=== PATIENT | female | born 2000 | race Caucasian/White ===

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

== ENCOUNTER → 2022-08-10 | Outpatient (CLI) | payer MEDICAID, SELFPAY ==
[2022-08-10 13:18] LABS: Chlamydia Trachomatis by PCR Negative (Negative); Neisserai gonorrhoeae by PCR Negative (Negative); Probe Check PASS; Sample Adequacy Control PASS; Specimen Processing Control PASS
== END | disposition home or self-care (01) ==
PROVIDERS: PCP Pediatrics; Referring Provider Nurse Practitioner Women's Health; Visit Provider Nurse Practitioner Women's Health
DX: Z11.3 Encounter for screening for infections with a predominantly sexual mode of transmission (principal)
CPT/HCPCS: 87491; 87591

== ENCOUNTER 2022-09-16 09:40 | Emergency (ER) | payer MEDICAID, SELFPAY ==
[2022-09-16 09:40] VITALS: BP 106/66; PULSE 70; RESP 18; TEMP 36.9; O2SAT 99; BMI 23.9
--- NOTE | 2022-09-16 10:42 | CT_ITS ---
INDICATION: Pain EXAMINATION: CT BRAIN - CT Head or Brain W/O Contrast Injection TECHNIQUE: Multiple axial images were obtained of the head without intravenous contrast. A radiation dose optimization technique was used for this scan. IV Contrast dosage and agent: None. COMPARISON: None FINDINGS: No acute intracranial hemorrhage. No significant midline shift. Ventricles are normal size and configuration for patient''s age. Mao-white matter differentiation is maintained. No acute infarct. No significant cerebral edema. No parenchymal masses. No acute calvarial fracture. Soft tissues are unremarkable. Fluid and mucosal thickening predominantly in the left ethmoid, paranasal, sphenoid, and left maxillary sinus. Mastoid air cells are clear. Orbits and globes are unremarkable. CT/Brain/Head without Contrast IMPRESSION: 1. No acute intracranial findings. 2. Acute sinusitis. Electronically Signed: Prince Wren, at 11:38 EST ,
[2022-09-16] MEDS: Metoclopramide 10 MG/2 ML Vial IV (10:51)
[2022-09-16] MEDS: 0.9% Normal Saline 1,000 ML 999 ML IV (10:51)
[2022-09-16] MEDS: DiphenhydrAMINE 50 MG/ML Syringe 25 MG IV (10:51)
--- NOTE | 2022-09-16 12:13 | EX.ED.VIS.HA ---
HPI History of Present Illness Chief Complaint: Headache Informant: patient Onset/Context/Timing Onset: Weeks (2) Context: Gradual Timing: Continuous Quality -Headache: Positive for Sharp and Other (Pressure) Location: Left side of her head Worsened by: Light Relieved by: Nothing Associated Symptoms/Injury Associated Symptoms: Positive for Sinus Pressure and Photophobia; Negative for Fever, Nausea, Vomiting, Sore Throat, Numbness, Tingling, Preceding Aura, Visual Changes, Blurred Vision or Visual Loss Narrative Narrative: Patient presents with headache that has been constant for the past 2 weeks. Patient states pain is sharp and pressure-like. Patient states it is over the left side of her head. Patient states it has been constant. Patient states nothing makes it better nothing makes it worse. Patient does admit to some photophobia and sinus pressure. Patient states her pain is gradually getting worse. Patient denies any nausea or vomiting. Patient denies any paresthesias or weakness. Patient denies any diplopia or blurry vision. Patient does admit to some rhinorrhea. PFSH PFSH Medical History no medical history no medical history Home Medications levonorgestrel 20.4 mcg/24 hrs (8 yrs) 52 mg intrauterine device (Liletta) 1 device intrauterine ONCE 08/09/21 [History Last Taken Unknown] fluticasone propionate 50 mcg/actuation nasal spray,suspension (Flonase Allergy Relief) 1 spray intranasal DAILY #16 grams 09/16/22 [Rx Last Taken Unknown] Allergy/AdvReac Type Severity Reaction Status Date / Time latex Allergy Rash Verified 09/16/22 10:20 Family History Grandfather Heart disease Unknown Thyroid cancer Surgical History (Updated 09/16/22 @ 12:[address] Med Dexter DO) H/O section Social History current occupational status: employed current occupation: [employer] Smoking Status: Current every day smoker tobacco type: e-cigarettes alcohol intake: never substance use type: does not use caffeine: No what type of physical activity do you participate in: walking frequency: 5-6 times per week seatbelt use: always ROS ROS ED Constitutional Constitutional ED: Denies chills or fever(s) Eyes Eyes: Denies blurry vision or change in vision ENT ENT ED: Reports rhinorrhea; Denies sore throat Cardiovascular Cardiovascular: Denies chest pain or palpitations Respiratory/Chest Respiratory/Chest: Denies cough or dyspnea Gastrointestinal Gastrointestinal: Denies nausea or vomiting Genitourinary Genitourinary ED: Denies dysuria or hematuria Musculoskeletal Musculoskeletal: Denies back pain or neck pain Integumentary Denies abscess or rash Neurologic Neurologic: Reports headache(s); Denies weakness Allergic/Immunologic Allergic/Immunologic ED: Denies mouth swelling or urticaria EXAM Physical Exam Const Vital Signs: 09/16/22 09:40 Temperature 98.4 F Temperature Source Temporal Pulse Rate 70 Respiratory Rate 18 Blood Pressure 106/66 Blood Pressure Mean 79 Pulse Ox 99 Oxygen Delivery Method Room Air Positive well nourished and well developed General Appearance ED: well developed HEENT Reports moist mucous membranes Neck supple and no JVD Resp normal respiratory effort and clear to auscultation bilaterally Cardio regular rate, regular rhythm and no murmurs GI normal to inspection, nondistended, normoactive bowel sounds and non-tender Palpation: soft Extremity normal to inspection General Extremety ED: Negative for edema or tenderness General Extremity: Negative for edema Neuro oriented x3, CN's II-XII intact bilaterally and no sensory deficits noted Sensorium / Orientation: alert Motor Exam: strength 5/5 throughout Psych mental status grossly normal Skin no rashes or lesions noted MDM MDM MDM Narrative Medical decision making narrative: Patient was given IV fluids, Reglan, and Benadryl. CT scan of the brain was obtained. There is no acute intracranial abnormality. There is mucosal thickening of the left ethmoid, paranasal, sphenoid, and maxillary sinuses. This was interpreted by the radiologist and reviewed by myself. Patient was feeling somewhat better on reevaluation. Patient was given a dose of Toradol. Patient was instructed to follow-up with her primary care physician in 5 to 7 days. Patient was instructed rest in a dark quiet room. Patient was given a prescription for Flonase. Patient was instructed to return if worse in any way. Patient understood and was agreeable with the plan. All questions were answered. Radiography Diagnostic Testing: Clinical Impression(s) from Imaging Studies Brain CT 09/16/22 10:42 IMPRESSION: 1. No acute intracranial findings. 2. Acute sinusitis. Electronically Signed: Prince Wren, at 11:38 EST , Discharge Plan Triage Chief Complaint: Headache ED Provider: Med Dexter Dx/Rx/DC Orders Clinical Impression: Headache, Sinusitis Instructions: ED Headache Unspecified, ED Sinusitis (No Antibiotics) Prescriptions: New fluticasone propionate [Flonase Allergy Relief] 50 mcg/actuation spray,suspension 1 spray intranasal DAILY Qty: 16 0RF Rx Instructions: administer into each nostril No Action Liletta 20.1 mcg/24 hrs (6 yrs) 52 mg intrauterine device 1 device intrauterine ONCE Rx Instructions: as a single dose Primary Care Provider: Jacey Domínguez Referrals: Jacey Domínguez MD [Primary Care Provider] - 5-7 Days Disposition Disposition: Home, Self Care
[2022-09-16] MEDS: Ketorolac 30 MG/ML Syringe IV (12:25)
== END 2022-09-16 12:30 | disposition home or self-care (01) ==
PROVIDERS: Emergency Provider Emergency Medicine; PCP Pediatrics; Visit Provider Emergency Medicine
DX: R51.9 Headache, unspecified (principal); J32.9 Chronic sinusitis, unspecified
CPT/HCPCS: 70450; 96374; 96375; 99283; J7030; A4216

== ENCOUNTER 2023-04-15 12:33 | Emergency (ER) | payer BC, MEDICAID, SELFPAY ==
[2023-04-15 12:34] VITALS: BP 102/67; PULSE 68; RESP 16; TEMP 36.8; O2SAT 100; BMI 22.6
--- NOTE | 2023-04-15 12:46 | EDS_ITS ---
HPI History of Present Illness Chief Complaint: Dental Narrative Narrative: Patient is a 23-year-old female who is presenting to the ER with chief complaint of dental pain. PFSH PFSH Home Medications levonorgestrel 20.4 mcg/24 hrs (8 yrs) 52 mg intrauterine device (Liletta) 1 device intrauterine ONCE 08/09/21 [History Last Taken Unknown] fluticasone propionate 50 mcg/actuation nasal spray,suspension (Flonase Allergy Relief) 1 spray intranasal DAILY #16 grams 09/16/22 [Rx Last Taken Unknown] Allergy/AdvReac Type Severity Reaction Status Date / Time latex Allergy Rash Verified 04/15/23 12:35 Family History Grandfather Heart disease Unknown Thyroid cancer Surgical History (Updated 09/16/22 @ 12:[address] Med Dexter, ) H/O section Social History current occupational status: employed current occupation: [employer] Smoking Status: Current every day smoker tobacco type: e-cigarettes alcohol intake: never substance use type: does not use caffeine: No what type of physical activity do you participate in: walking frequency: 5-6 times per week seatbelt use: always ROS ROS ED ROS Narrative REVIEW OF SYSTEMS: Unless otherwise stated in this report the patient's positive and negative responses for review of systems for constitutional, eyes, ENT, cardiovascular, respiratory, gastrointestinal, neurological, , musculoskeletal, and integument systems and related systems to the presenting problem are either stated in the history of present illness or were not p ertinent or were negative for the symptoms and/or complaints related to the presenting medical problem. EXAM Physical Exam Narrative Exam Narrative: Vital signs reviewed and patient is not hypoxic. General: The patient appears well and in no apparent distress. Patient is r esting comfortably on cart. Not toxic, lethargic, or listless. Skin: Warm, dry, no pallor noted. There is no rash noted. Head: Normocephalic, atraumatic Eye: Normal conjunctiva, no drainage, EOMI. PERRL. Ears, Nose, Mouth, and Throat: oral mucosa is moist. Nares patent. Mouth without vesicles. Cardiovascular: Regular Rate and Rhythm, no murmurs, gallops, or rubs Respiratory: Patient is in no distress, no accessory muscle use, lungs are clear to auscultation, no wheezing, rales or rhonchi Back: non-tender, no CVA tenderness bilaterally to percussion. NO CTLS midline or paraspinal tenderness to palpation. GI: Soft, no tenderness to palpation, no masses appreciated. No rebound, guarding, or rigidity noted. Musculoskeletal: The patient has full range of motion of all extremities and joints with no difficulty. Patient has no motor, no sensory deficits. Neurological: A&O x4, normal speech, no focal neurological deficits. Psychiatric: Cooperative Const Vital Signs: 04/15/23 12:34 Temperature 98.2 F Temperature Source Temporal Pulse Rate 68 Respiratory Rate 16 Blood Pressure 102/67 Blood Pressure Mean 78 Pulse Ox 100 Oxygen Delivery Method Room Air Discharge Plan Triage Chief Complaint: Dental ED Provider: Eliseo Mckeon Dx/Rx/DC Orders Prescriptions: No Action Liletta 20.1 mcg/24 hrs (6 yrs) 52 mg intrauterine device 1 device intrauterine ONCE Rx Instructions: as a single dose fluticasone propionate [Flonase Allergy Relief] 50 mcg/actuation spray,suspension 1 spray intranasal DAILY Qty: 16 0RF Rx Instructions: administer into each nostril Primary Care Provider: Jacey Domínguez Referrals: Jacey Domínguez MD [Primary Care Provider] -
--- NOTE | 2023-04-15 13:27 | NURSING ---
patient walked out of ED, left without being seen.
== END 2023-04-15 13:25 | disposition left against medical advice (07) ==
LOC: ED 13:30
PROVIDERS: Emergency Provider Emergency Medicine; PCP Pediatrics; Visit Provider Emergency Medicine
DX: Z53.21 Procedure and treatment not carried out due to patient leaving prior to being seen by health care provider (principal)
CPT/HCPCS: 99281

== ENCOUNTER → 2023-08-15 | Outpatient (CLI) | payer MEDICAID, SELFPAY ==
[2023-08-15 10:33] LABS: HIV - WCH Non-Reactive (Nonreactive); Hepatitis C Antibody Non-Reactive (Nonreactive); Syphilis Antibodies Non-reactive
[2023-08-16 06:09] LABS: HSV 1 IgG < 0.91 index (0.00-0.90); HSV 2 IgG < 0.91 index (0.00-0.90)
[2023-08-16 20:07] LABS: Chlamydia By Nucleic Acid AMP Negative (Negative); Gonococcus By Nucleic Acid AMP Negative (Negative)
[2023-08-18 23:02] LABS: HPV Reflexed? NOT INDICATED
== END | disposition home or self-care (01) ==
PROVIDERS: PCP Pediatrics; Referring Provider Nurse Practitioner Women's Health; Visit Provider Nurse Practitioner Women's Health
DX: Z12.4 Encounter for screening for malignant neoplasm of cervix (principal); Z20.2 Contact with and (suspected) exposure to infections with a predominantly sexual mode of transmission
CPT/HCPCS: 36415; 86695; 86696; 86703; 86780; 86803; 87491; 87591; 88175; G0145

== ENCOUNTER → 2023-09-04 | Outpatient (CLI) | payer MEDICAID, SELFPAY ==
--- NOTE | 2023-09-04 12:53 | US_ITS ---
STUDY: ULTRASOUND OF THE FEMALE PELVIS - COMPLETE REASON FOR EXAM: Female, 23 years old. IUD check, pelvic pain LMP: August 08, 2023. TECHNIQUE: Transabdominal and Transvaginal TECHNICAL QUALITY: Adequate. COMPARISON: Comparison is made with prior study June 25, 2019. FINDINGS: The uterus is retroverted and is tilted to the left side of the pelvis. The uterus measures 7.2 cm x 6 cm x 4.6 cm. Normal uterine cervix. The endometrium measures 2.0 mm in thickness, and is hyperechoic. There is no demonstrated endometrial mass. There is no demonstrated myometrial mass. I.U.D. - The patient does have an I.U.D. . The IUD is visualized in the lower uterine segment/cervix. The right ovary is visualized. The right ovary measures 3 cm x 2.3 cm x 2.4 cm. There is no right ovarian cyst or ovarian mass. There is no visualized right adnexal mass or complex lesion. There is normal arterial and normal venous vascularity. The left ovary is visualized. The left ovary measures 3.1 cm x 2 cm x 2 cm. There is no left ovarian cyst or ovarian mass. There is no visualized left adnexal mass or complex lesion. There is normal arterial and normal venous vascularity. There is minimal fluid in the cul-de-sac. The pre void volume of the bladder was 36 ml. US/Pelvic (Non ) IMPRESSION: The IUD is seen within the lower uterine segment/cervix. Minimal amount of free fluid is seen in the cul-de-sac. Electronically Signed: Pola Kim MD at 14:11 EST ,
== END | disposition home or self-care (01) ==
LOC: OPUS 12:52
PROVIDERS: PCP Pediatrics; Referring Provider Nurse Practitioner Women's Health; Visit Provider Nurse Practitioner Women's Health
DX: Z30.431 Encounter for routine checking of intrauterine contraceptive device (principal); R10.2 Pelvic and perineal pain
CPT/HCPCS: 76830; 76856

== ENCOUNTER → 2024-01-08 | Outpatient (CLI) | payer MEDICAID, SELFPAY ==
--- NOTE | 2024-01-08 12:51 | US_ITS ---
STUDY: ULTRASOUND OF THE FEMALE PELVIS - COMPLETE REASON FOR EXAM: Female, 23 years old. IUD placement LMP: No menses since IUD placement. TECHNIQUE: Transvaginal TECHNICAL QUALITY: Adequate. COMPARISON: Comparison is made with prior study dated September 04, 2023. FINDINGS: The uterus is retroverted and is in a midline position. The uterus measures 7.7 cm x 5.7 cm x 4.4 cm. Normal uterine cervix. The endometrium measures 5.5 mm in thickness, and is heterogeneous (striated). There is no demonstrated endometrial mass. There is no demonstrated myometrial mass. I.U.D. - The patient does have an I.U.D. within the fundal endometrium The right ovary is visualized. The right ovary measures 3.3 cm x 2 cm x 2.1 cm. There is no right ovarian cyst or ovarian mass. There is no visualized right adnexal mass or complex lesion. There is normal arterial and normal venous vascularity. The left ovary is visualized. The left ovary measures 4.1 cm x 2.8 cm x 3 cm. There is a 3 cm by 2.1 cm x 2.2 cm complex cyst in the left ovary. This is suggestive of hemorrhagic cyst. There is no visualized left adnexal mass or complex lesion. There is normal arterial and normal venous vascularity. There is minimal fluid in the cul-de-sac. US/Transvaginal Non- IMPRESSION: IUD is seen within the fundal portion of the endometrium. 3 cm x 2.1 cm x 2.2 cm hemorrhagic cyst in the left ovary. Electronically Signed: Pola Kim MD at 15:33 EDT ,
== END | disposition home or self-care (01) ==
LOC: US 12:50
PROVIDERS: PCP Pediatrics; Referring Provider Advanced Practice Midwife; Visit Provider Advanced Practice Midwife
DX: R10.2 Pelvic and perineal pain (principal)
CPT/HCPCS: 76830

== ENCOUNTER → 2024-02-16 | Outpatient (CLI) | payer MEDICAID, SELFPAY ==
--- NOTE | 2024-02-16 13:23 | US_ITS ---
STUDY: ULTRASOUND OF THE FEMALE PELVIS - COMPLETE REASON FOR EXAM: Female, 23 years old. Left ovarian cyst LMP: 5 months ago. TECHNIQUE: Transabdominal and Transvaginal TECHNICAL QUALITY: Adequate. COMPARISON: Comparison is made with prior study dated January 08, 2024. FINDINGS: The uterus is retroverted and is in a midline position. The uterus measures 7.5 cm x 5.1 cm x 4 cm. Normal uterine cervix. The endometrium measures 4.8 mm in thickness, and is hyperechoic. There is no demonstrated endometrial mass. There is no demonstrated myometrial mass. I.U.D. - The patient does have an I.U.D. The right ovary is visualized. The right ovary measures 3.9 cm x 2.2 cm x 2.3 cm. There is no right ovarian cyst or ovarian mass. There is no visualized right adnexal mass or complex lesion. There is normal arterial and normal venous vascularity. The left ovary is visualized. The left ovary measures 4 cm x 3.8 cm x 3 cm. Once again, there is a 2.4 cm x 2.7 cm x 2.4 cm complex cyst in the left ovary. There is no visualized left adnexal mass or complex lesion. There is normal arterial and normal venous vascularity. There is minimal fluid in the cul-de-sac. The pre void volume of the bladder was 38 ml. US/Pelvic w/ Transvaginal IMPRESSION: Essentially stable 2.4 cm x 2.7 cm x 2.4 cm complex cyst in the left ovary. Electronically Signed: Pola Kim MD at 14:34 EDT ,
== END | disposition home or self-care (01) ==
LOC: US 13:22
PROVIDERS: PCP Pediatrics; Referring Provider Advanced Practice Midwife; Visit Provider Advanced Practice Midwife
DX: N83.202 Unspecified ovarian cyst, left side (principal)
CPT/HCPCS: 76830; 76856

== ENCOUNTER → 2024-06-19 | Outpatient (CLI) | payer MEDICAID, SELFPAY ==
--- NOTE | 2024-06-19 17:46 | US_ITS ---
INDICATION: pain EXAMINATION: Ultrasound US Pelvis Non OB Complete With Transvaginal Imaging TECHNIQUE: Transabdominal and transvaginal pelvic ultrasound was performed. Grayscale, spectral waveform, and color flow Doppler evaluation of the adnexa. COMPARISON: FINDINGS: UTERUS: Retroverted. The uterus measures 7.6 x 3.1 x 6.6 cm. There is no uterine mass. The endometrial stripe measures 3 mm in AP diameter with an IUD in place RIGHT OVARY: 3.3 x 1.7 x 2.2 cm. Non-enlarged, normal echogenicity. There is normal arterial inflow and venous outflow present in the right ovary. LEFT OVARY: 3.2 x 3.0 x 1.9 cm. 1.5 cm complex cystic nodule. There is normal arterial inflow and venous outflow present in the left ovary. FREE FLUID: Mild. US/Pelvic w/ Transvaginal IMPRESSION: Complex left ovarian cystic nodule. Mild pelvic fluid. IUD in place. Electronically Signed: Arslan Catalan DO at 23:01 EDT Reading Location ID and State: [facility] / [place] Tel [phone], Service support ,
== END | disposition home or self-care (01) ==
LOC: US 17:46
PROVIDERS: PCP Pediatrics; Referring Provider Nurse Practitioner Women's Health; Visit Provider Nurse Practitioner Women's Health
DX: R10.2 Pelvic and perineal pain (principal); N83.202 Unspecified ovarian cyst, left side; Z30.431 Encounter for routine checking of intrauterine contraceptive device
CPT/HCPCS: 76830; 76856

== ENCOUNTER → 2024-08-19 | Outpatient (CLI) | payer MEDICAID, SELFPAY ==
[2024-08-21 06:36] LABS: Chlamydia By Nucleic Acid AMP Negative (Negative); Gonococcus By Nucleic Acid AMP Negative (Negative)
== END | disposition home or self-care (01) ==
LOC: LABSPEC 10:37
PROVIDERS: PCP Pediatrics; Referring Provider Nurse Practitioner Women's Health; Visit Provider Nurse Practitioner Women's Health
DX: Z11.3 Encounter for screening for infections with a predominantly sexual mode of transmission (principal)
CPT/HCPCS: 87491; 87591

== ENCOUNTER 2024-12-12 13:31 | Emergency (ER) | payer MEDICAID, SELFPAY ==
[2024-12-12 13:31] VITALS: BP 106/74; PULSE 74; RESP 15; TEMP 36.1; O2SAT 100; BMI 22.6
--- NOTE | 2024-12-12 14:10 | EX.ED.DYSGE1 ---
HPI History of Present Illness Chief Complaint: Abd Pain PFSH PFSH Home Medications ?Medication ?Instructions ?Recorded ?Last Taken ?Type NK 12/12/24 Unknown History Allergy/AdvReac Type Severity Reaction Status Date / Time latex Allergy Rash Verified 12/12/24 13:33 Family History Grandfather Heart disease Unknown Thyroid cancer Surgical History H/O section Social History current occupational status: employed current occupation: [employer] Smoking Status: Current every day smoker tobacco type: e-cigarettes alcohol intake: never substance use type: does not use caffeine: No what type of physical activity do you participate in: walking frequency: 5-6 times per week seatbelt use: always EXAM Physical Exam Const Vital Signs: 12/12/24 13:31 Temperature 97 F L Temperature Source Temporal Pulse Rate 74 Respiratory Rate 15 Blood Pressure 106/74 Blood Pressure Mean 84 Pulse Ox 100 Oxygen Delivery Method Room Air MDM MDM MDM Narrative Medical decision making narrative: HISTORY OF PRESENT ILLNESS: 24-year-old female presents with concern for abdominal pain. She states she has had 10 days of abdominal pain. Notes nausea vomiting diarrhea as well. No blood in her vomit. No blood in her stool. No melena. Notes history of otherwise no abdominal surgeries. Denies any urinary complaints. No fever REVIEW OF SYSTEMS: Pertinent positives: Right upper quadrant abdominal pain, nausea vomiting diarrhea Pertinent negatives: Fever, chest pain, urinary complaints, vaginal bleeding or discharge. PHYSICAL EXAM: Nursing triage notes reviewed, Vital signs reviewed Constitutional: please see mdm HENT: MMM Eyes: Pupils equal round and reactive to light, Extraocular muscles intact Neck: No stridor, no JVD, full neck ROM Lungs: Clear to auscultation, No wheezing or rales. No increased work of breathing, no conversational dyspnea, no accessory muscle use, no nasal flaring. No respiratory distress noted Heart: Regular rate and rhythm, No murmurs, No rubs and No gallops, 2+ distal pulses (radial, femoral, posterior tibial) in all extremities Abdomen: Lateral quad TTP, positive Bermudez sign, rigidity, rebound or guarding, no obvious peritoneal signs, no palpable pulsatile abdominal masses, no auscultated abdominal bruit : No CVAT Extremities: No edema Neuro: No new focal neurological deficits, cranial nerves II through XII intact, 5/5 strength in all present extremities. Intact sensation to light touch in all present extremities, 2+ reflexes bilateral patella tendons. Skin: No rash or lesions noted MEDICAL DECISION MAKING: Chief Complaint: Abdominal pain External records reviewed: Reviewed prior imaging studies Social determinants of health: Denies alcohol History obtained from others: none Consults: none [facility] Narrative: The patient was initially hemodynamically stable, afebrile and nontoxic-appearing. Exam with right upper quadrant TTP, positive Bermudez sign. I considered the following differential diagnosis: AAA, small bowel obstruction, abdominal perforation, appendicitis, pancreatitis, hepatobiliary pathology (acute cholecystitis), mesenteric ischemia, pathology (ie nephrolithiasis, pyelonephritis). I obtained a broad lab and imaging workup to further elucidate etiology of the patient's complaints I initially treated the patient with 1 L normal saline and 4 mg IV Zofran ALL IMAGES (IF OBTAINED) HAVE BEEN PERSONALLY REVIEWED AND INTERPRETED BY MYSELF. CBC without leukocytosis, severe anemia, no thrombocytopenia. Urine test is negative Urinalysis shows no evidence of urinary inflammation suggestive of UTI BMP without evidence of significant electrolyte abnormalities, no acute kidney injury. LFTs show no evidence of hepatobiliary pathology. Right quad ultrasound shows evidence of acute gallbladder pathology The synthesis of the patient's history, physical exam, labs images suggest no acute life-threatening surgical abnormality. I suspect there could be a GI related component including gastritis, esophagitis or peptic ulcer disease. Will encourage close outpatient GI follow-up. Return precautions were discussed The patient and/or family, caregivers express understanding. The patient and/or family, caregivers agrees with the plan. Shared decision making: I will have a discussion with the patient and or visitors regarding risk/benefits of further testing or admission. They will be made aware of of the risk/benefits inherent in this decision they will be given the opportunity to voice understanding. Total critical care time today provided was at least 0 minutes. This excludes separately billable procedures. Critical care time (if documented) is secondary to the patient having high probability of clinically significant/life threatening deterioration in the patient's condition which required my urgent intervention. Impression: 1. Acute abdominal pain Dispo: Discharge home This note was generated with [employer] software. It may contain incorrect words, spelling, and punctuation that were not noted in review of the chart prior to signing. Lab Data Labs: Laboratory Results - last 24 hr 12/12/24 12/12/24 13:45 14:25 WBC 6.5 RBC 4.48 Hgb 13.5 Hct 39.9 MCV 89.1 MCH 30.1 MCHC 33.8 RDW Std Deviation 39.6 RDW Coeff of Ahsan 12.1 Plt Count 279 MPV 11.4 Immature Gran % (Auto) 0.300 Neut % (Auto) 52.9 Lymph % (Auto) 35.0 [place] % (Auto) 10.1 H Eos % (Auto) 0.8 Baso % (Auto) 0.9 Absolute Neuts (auto) 3.4 Absolute Lymphs (auto) 2.26 Nucleated RBC % 0 Sodium 140 Potassium 3.7 Chloride 104 Carbon Dioxide 17.6 L Anion Gap 19 H BUN 11 Creatinine 0.75 Estim Creat Clear Calc 93.06 Est GFR (MDRD) Non-Af 115 BUN/Creatinine Ratio 14.9 Glucose 82 Calcium 9.3 Total Bilirubin 0.52 Direct Bilirubin 0.26 AST 19 ALT 10 Alkaline Phosphatase 55 Total Protein 6.9 Albumin 4.6 Globulin 2.3 Lipase 24 Urine Color Yellow Urine Clarity Clear Urine pH 5.0 Ur Specific [place] 1.030 Urine Protein 30 H Urine Glucose (UA) Normal Urine Ketones 5 H Urine Occult Blood Negative Urine Nitrite Negative Urine Bilirubin Negative Urine Urobilinogen Normal Ur Leukocyte Esterase Negative Urine RBC 0 SEEN Urine WBC 0 SEEN Ur Squamous Epith Cells 0-5 SEEN Urine Bacteria 0 SEEN Urine Mucus 2+ Urine Test Negative Radiography Diagnostic Testing: Clinical Impression(s) from Imaging Studies Gallbladder Ultrasound 12/12/24 14:19 IMPRESSION: 1. No acute abnormality. Reading [facility] Discharge Plan Triage Chief Complaint: Abd Pain ED Provider: Theo Pozo Dx/Rx/DC Orders Prescriptions: No Action NK Primary Care Provider: Care Physician,No Primary Referrals: Care Physician,No Primary [Primary Care Provider] - Print Language: Thai
--- NOTE | 2024-12-12 14:19 | US_ITS ---
PROCEDURE: GALLBLADDER 12/12/2024 REASON FOR EXAM: RUQ TTP COMPARISON: None FINDINGS: Liver: Normal echogenicity and contour.No hepatic lesions identified.The portal vein is patent with hepatopetal flow. Size: 12.1 cm Gallbladder/biliary: No gallstones or gallbladder wall thickening.The common bile duct is normal in caliber. Pancreas: Visualized portions are unremarkable. Right kidney: Normal echogenicity and vascularity. Size: 10.3 cm US/Gallbladder IMPRESSION: 1. No acute abnormality. Reading Location: [facility]
[2024-12-12] MEDS: 0.9% Normal Saline (1000mL) 1,000 ML 999 ML IV (14:27)
[2024-12-12] MEDS: Ondansetron 4 MG/2 ML Vial IV (14:27)
[2024-12-12 14:30] LABS: Bacteria 0 SEEN /hpf (None Seen); White Blood Cells 0 SEEN /hpf (0-5)
[2024-12-12 14:35] LABS: Absolute Lymphocyte Count 2.26 X10^3/uL (0.83-4.51); Absolute Neutrophil Count 3.4 X10^3/uL (2.0-7.7); Basophil# 0.06 X10^3/uL; Basophil% 0.9 % (0-1); Eosinophil# 0.05 X10^3/uL; Eosinophils% 0.8 % (0-5); Hematocrit 39.9 % (37-47); Hemoglobin 13.5 g/dL (12.0-15.0); Lymphocyte # 2.26 X10^3/ul (0.83-4.51); Mean Corp Hgb Conc 33.8 g/dL (32-36); Mean Corpuscular Hgb 30.1 pg (27.0-32.0); Mean Corpuscular Volume 89.1 fL (81-99); Mean Platelet Vol. 11.4 fl (6.2-12.0); Monocyte# 0.65 X10^3/uL; Monocyte% 10.1 % (0-10); NRBC Flagged by Analyzer 0 % (0-5); Neutrophil # 3.42 X10^3/uL (2.7-7.7); Neutrophil % 52.9 % (47-70); Platelet Count 279 K/mm3 (150-450); RBC Distribution Width CV 12.1 % (11.6-14.6); RBC Distribution Width SD 39.6 fl (35.1-43.9); Red Blood Count 4.48 M/mm3 (4.2-5.4); White Blood Count 6.5 K/mm3 (4.4-11.0)
[2024-12-12 14:38] LABS: Color, Urine Yellow (Yellow); Glucose, Dipstick Normal (Normal); Ketone-Dipstick 5 mg/dl (Negative); Leukocyte Esterase-Dipstick Negative /ul (Negative); Nitrite-Dipstick Negative (Negative); Occult Blood-Urine Negative /ul (Negative); Protein-Dipstick 30 mg/dl (Negative); Urine Bilirubin Dipstick Negative (Negative); Urine Clarity Clear (Clear); Urine Urobilinogen Normal (Normal)
[2024-12-12 14:44] LABS: Mucous, Urine 2+ /hpf (<or=2+); Red Blood Cells-Urine 0 SEEN /hpf (0-5); Squamous Epithelial Cells - UA 0-5 SEEN /hpf (5-10)
[2024-12-12 14:45] LABS: Internal QC Validated? YES +Cl - CLEAR BKGD; Pregnancy, Urine Negative Negative
[2024-12-12] MEDS: Ketorolac 15 MG/ML Vial IV (15:08)
[2024-12-12 15:13] LABS: AST(SGOT) 19 U/L (<=31); Alanine Aminotransfer ALT/SGPT 10 U/L (<=34); Albumin, Serum 4.6 g/dL (3.5-5.0); Alkaline Phosphatase 55 U/L (35-104); Anion Gap 19 (5-15); BUN 11 mg/dL (4-19); BUN/Creat Ratio 14.9 RATIO (10-20); Bilirubin, Direct 0.26 mg/dL (0.00-0.30); Calcium,Total 9.3 mg/dL (7.6-11.0); Carbon Dioxide 17.6 mmol/L (21.0-32.0); Chloride 104 mmol/L (98-108); Creatinine, Serum 0.75 mg/dL (0.70-1.20); EST Glomerular Filtration Rate 115 (>60); Estimated Creatinine Clearance 93.06 ml/min (50-250); Globulin 2.3 g/dL (2.2-4.2); Glucose 82 mg/dL (70-99); Lipase 24 U/L (13-75); Potassium 3.7 mmol/L (3.3-5.1); Protein, Total 6.9 g/dL (5.9-8.4); Sodium Level 140 mmol/L (133-145); Total Bilirubin 0.52 mg/dL (0.00-1.30)
[2024-12-12 15:31] VITALS: BP 116/88; PULSE 75; RESP 15; O2SAT 99
[2024-12-12 16:15] VITALS: BP 108/68; PULSE 67; RESP 15; TEMP 37; O2SAT 99
== END 2024-12-12 16:34 | disposition home or self-care (01) ==
PROVIDERS: Emergency Provider Emergency Medicine; Visit Provider Emergency Medicine
DX: R10.9 Unspecified abdominal pain (principal); F17.290 Nicotine dependence, other tobacco product, uncomplicated
CPT/HCPCS: 76705; 80048; 80076; 81001; 81025; 83690; 85025; 96361; 96374; 96376; 99283; J2405

== ENCOUNTER → 2025-01-10 | Outpatient (CLI) | payer MEDICAID, SELFPAY ==
--- NOTE | 2025-01-10 10:39 | NM_ITS ---
PROCEDURE: HEPATOBILLIARY IMG W/PHARM INT 01/10/2025 REASON FOR EXAM: RUQ PAIN, N/V TECHNIQUE: Intravenous Choletec with planar imaging of the abdomen. 1.1 mcg Kinevac intravenously approximately 60 minutes after the radiopharmaceutical with additional anterior imaging and a region of interest drawn around the gallbladder to calculate a time-activity curve. RADIOPHARMACEUTICAL: 5.1 mCi of technetium labeled mebrofenin COMPARISON: Prior sonogram of the right upper quadrant dated December 12, 2024. FINDINGS: There is good uptake of the radiopharmaceutical by the liver. Normal gallbladder visualization with the gallbladder identified by 30 minutes. Gallbladder Ejection Fraction: 12 % (Normal is >35%) NM/Hepatobilliary Img w/Pharm Int IMPRESSION: Abnormal gallbladder ejection fraction. Reading Location: [place] [address]
== END | disposition home or self-care (01) ==
LOC: NM 10:37
PROVIDERS: Referring Provider Nurse Practitioner Acute Care; Visit Provider Nurse Practitioner Acute Care
DX: R10.11 Right upper quadrant pain (principal); R11.2 Nausea with vomiting, unspecified
CPT/HCPCS: 78227; A9537; J2805

== ENCOUNTER → 2025-01-17 | Outpatient (CLI) | payer MEDICAID, SELFPAY ==
[2025-01-17 15:11] LABS: Ferritin 97 ng/mL (22-378); T3 Total - Triiodothyronine 1.11 ng/mL (0.80-2.00); T4 Total, Thyroxin 7.5 ug/dL (4.8-13.9); Vitamin B12 401 pg/mL (180-914)
[2025-01-17 15:18] LABS: Erythrocyte Sedimentation Rate 1 mm/hr (0-30)
[2025-01-17 16:14] LABS: CRP < 3.00 mg/L (0.0-3.0); Iron 68 ug/dL (50-170); LDH 154 U/L (84-246)
[2025-01-22 13:08] LABS: ACCA 10 units (0-90); ALCA 4 units (0-60); AMCA 1 units (0-100); Cytoplasmic Ab (C-ANCA) <1:20 titer (Neg:<1:20); Deamidated Gliadin IgA 3 units (0-19); Deamidated Gliadin IgG 2 units (0-19); Endomysial Antibody IgA Negative (Negative); Gastrin, Serum 50 pg/mL (0-115); Immunoglobulin A 113 mg/dL (87-352); Perinuclear Ab (P-ANCA) <1:20 titer (Neg:<1:20); gASCA 5 units (0-50); t-Transglutaminase IgA <2 U/mL (0-3)
[2025-01-22 20:08] LABS: Anti-Centromere B Ab <0.2 AI (0.0-0.9); Anti-Chromatin <0.2 AI (0.0-0.9); Anti-Jo <0.2 AI (0.0-0.9); Anti-Scleroderma-70 AB <0.2 AI (0.0-0.9); Anti-dsDNA Ab <1 IU/mL (0-9); Beef <0.10 kU/L (Class 0); Chocolate <0.10 kU/L (Class 0); Codfish <0.10 kU/L (Class 0); Corn <0.10 kU/L (Class 0); Egg, Whole <0.10 kU/L (Class 0); Milk (Cow) <0.10 kU/L (Class 0); Mussels <0.10 kU/L (Class 0); Peanut <0.10 kU/L (Class 0); Pork <0.10 kU/L (Class 0); RNP Ab <0.2 AI (0.0-0.9); SJOGREN'S Anti-SS-A test < 0.2 AI (0.0-0.9); SJOGREN'S Anti-SS-B test < 0.2 AI (0.0-0.9); Salmon <0.10 kU/L (Class 0); Shrimp <0.10 kU/L (Class 0); Smith Ab <0.2 AI (0.0-0.9); Soybean <0.10 kU/L (Class 0); Tuna <0.10 kU/L (Class 0); Wheat <0.10 kU/L (Class 0)
== END | disposition home or self-care (01) ==
LOC: LAB 13:25
PROVIDERS: Referring Provider Internal Medicine Gastroenterology; Visit Provider Internal Medicine Gastroenterology
DX: R19.7 Diarrhea, unspecified (principal); R11.14 Bilious vomiting; R10.11 Right upper quadrant pain
CPT/HCPCS: 36415; 82607; 82728; 82784; 82941; 83516; 83540; 83615; 84436; 84443; 84480; 85652; 86003; 86005; 86036; 86037; 86140; 86225; 86235; 86255; 86671

== ENCOUNTER → 2025-02-11 | Outpatient (CLI) | payer MEDICAID, SELFPAY ==
--- NOTE | 2025-02-11 12:57 | NM_ITS ---
PROCEDURE: GASTRIC EMPTYING STUDY 02/11/2025 REASON FOR EXAM: ABDOMINAL PAIN COMPARISON: None TECHNIQUE: The patient ingested a standard meal of oatmeal as well as sulfur colloid, and water. There was no vomiting postprandially. Anterior and posterior planar images of the upper abdomen were obtained for 1 minute immediately following the meal at 1h, 2h and 4h if more than 10% of the activity persisted within the stomach. Regions of interest were drawn, and a geometric mean was used to calculate a [id number]. RADIOPHARMACEUTICAL: Sulfur colloid DOSE 1.1mCi FINDINGS: Percent activity remaining in stomach: 1 hour 48 % (normal 37-90%) NM/Gastric Emptying Study IMPRESSION: Normal gastric emptying examination. Reading Location: [place] [id number]
== END | disposition home or self-care (01) ==
LOC: NM 12:53
PROVIDERS: Referring Provider Internal Medicine Gastroenterology; Visit Provider Internal Medicine Gastroenterology
DX: R19.7 Diarrhea, unspecified (principal); R11.14 Bilious vomiting; R10.11 Right upper quadrant pain
CPT/HCPCS: 78264; A9541

== ENCOUNTER → 2025-02-20 | Outpatient (CLI) | payer MEDICAID, SELFPAY ==
--- NOTE | 2025-02-20 07:54 | CT_ITS ---
PROCEDURE: ABDOMEN/PELVIS WITH CONTRAST 02/20/2025 REASON FOR EXAM: ABDOMINAL PAIN TECHNIQUE: Abdomen and pelvis CT with oral and intravenous contrast. Coronal and Sagittal reconstruction series were provided. PATIENT PREPARATION: Per protocol CONTRAST: 98 mL Isovue 370 One or more dose reduction techniques were used (e.g., Automated exposure control, adjustment of the mA and/or kV according to patient size, use of iterative reconstruction technique. RADIATION DOSE SUMMARY: CTDlvol: 13.3 mGy DLP: 349 mGycm COMPARISON: Abdominal ultrasound 12/12/2024 FINDINGS: Lung bases: Unremarkable Liver: Normal size. No mass. Gallbladder: Unremarkable Spleen: Normal size. Pancreas: Normal size without evidence of mass surrounding inflammation or ductal dilation. Adrenals: Unremarkable Kidneys: No hydronephrosis or stones. Bladder: Unremarkable Reproductive Organs: Intrauterine device. Corpus luteum in the right ovary. Bowel: No obstruction or inflammation. Normal appendix. Lymph nodes: Unremarkable Vasculature: Borderline narrowing of the aortomesenteric angle which measures 23 degrees. Bones: Unremarkable CT/Abdomen/Pelvis WITH Contrast IMPRESSION: Borderline narrowing of the aortomesenteric angle, as can be seen with SMA synd elen. Correlate with symptoms. Otherwise unremarkable exam. Reading Location: [facility]
== END | disposition home or self-care (01) ==
LOC: CT 07:47
PROVIDERS: Referring Provider Internal Medicine Gastroenterology; Visit Provider Internal Medicine Gastroenterology
DX: R10.11 Right upper quadrant pain (principal); R19.7 Diarrhea, unspecified; R11.14 Bilious vomiting
CPT/HCPCS: 74177; Q9967

== ENCOUNTER 2025-04-10 09:03 | Emergency (ER) | payer MEDICAID, SELFPAY ==
[2025-04-10 09:03] VITALS: BP 121/95; PULSE 96; RESP 16; TEMP 37.3; O2SAT 100; BMI 23.4
--- NOTE | 2025-04-10 09:20 | RAD_ITS ---
PROCEDURE: ABD INC DECUB AND/OR ERECT 04/10/2025 REASON FOR EXAM: ABD PAIN TECHNIQUE: ABD INC DECUB AND/OR ERECT COMPARISON: February 20, 2025 CT FINDINGS: There is a nonobstructive bowel gas pattern. There is no air-fluid levels or distended small bowel loops. Gas and stool is noted in the descending colon and rectum. An IUD is present in the mid pelvis. There is no acute bony abnormality. RAD/Abd Inc Decub and/or Erect IMPRESSION: Nonobstructive bowel gas pattern. Reading Location: [facility]
--- NOTE | 2025-04-10 09:22 | ED.VIS.GI ---
HPI HPI - GI History of Present Illness Chief Complaint: Abd Pain Informant: patient Narrative Narrative: Patient is a 25-year-old female reports ongoing issues with abdominal pain since November of this year presenting with abdominal pain, nausea and vomiting yesterday as well as headache today. Patient states yesterday she had to leave work early because she was feeling nauseous. She developed diffuse pain in her abdomen and then had a couple episodes of vomiting. Is mostly yellow and clear. She has some associated chills and felt cold. She developed a throbbing headache. She took Tylenol with no relief of her headache. She was able to eat some chicken and soup later in the evening. She notes that she had pale bowel movements yesterday and the day before. She also notes her urine has been darker. She did report some light sensitivity yesterday. Because of the severity and continued headache this morning she came in for further evaluation. She notes that when she was vomiting today she did have a slight amount of pink in her vomit as well. She states that she is leaving for vacation to [place] on Monday (in 2 days) and I once make sure everything is okay. She has appointment to see Dr. Nunn for her gallbladder on April 21. She also has previously seen Dr. Maynard. She was just started on Linzess and just picked it up today and took her first dose. 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 Maynard told her she must be 42 before they can do a procedure for it. GI note from 03/20/2025 reviewed–patient had gallbladder ultrasound on 12/12/2024 which was largely negative. HIDA scan on 01/10/2025 was abnormal at 12%. Abdomen CT shows borderline narrowing of the aortomesenteric angle all which can be seen in SMA syndrome. On 03/20/2025 did have some improvement with a course of magnesium citrate. Per GI note lower suspicion for superior mesenteric artery syndrome and higher suspicion for IBS. [facility] Medical History Generalized headaches Gastrointestinal problem UTI (urinary tract infection) Home Medications Medication Instructions Recorded Last Taken Type pantoprazole 40 mg tablet,delayed 40 mg PO QDAY #90 tabs 12/17/24 Unknown Rx release docusate sodium 100 mg capsule 100 mg PO BID 7 days #14 caps 01/25/25 Unknown Rx (Colace) polyethylene glycol 3350 17 4 g PO QDAY #238 grams 01/25/25 Unknown Rx gram/dose oral powder (Miralax) prochlorperazine maleate 10 mg 10 mg PO TID PRN nausea and 01/25/25 Unknown Rx tablet vomiting #30 tabs linaclotide 145 mcg capsule 145 mcg PO QAM #30 caps 04/07/25 Unknown Rx (Linzess) magnesium citrate 300 ml PO ONCE #296 mL 04/07/25 Unknown Rx metoclopramide HCl 5 mg tablet 5 mg PO Q8H PRN nausea and 04/10/25 Unknown Rx (Reglan) vomiting #10 tabs ondansetron 4 mg disintegrating 4 mg PO Q8H PRN PRN Nausea #20 tabs 04/10/25 Unknown Rx tablet Allergy/AdvReac Type Severity Reaction Status Date / Time latex Allergy Rash Verified 04/10/25 09:03 Family History Grandfather Heart disease Unknown Thyroid cancer Other Anxiety Bone cancer Cancer Liver disease Pancreatic cancer Surgical History H/O section Social History current occupational status: employed current occupation: [employer] Smoking Status: Current every day smoker tobacco type: e-cigarettes alcohol intake: never substance use type: does not use caffeine: No what type of physical activity do you participate in: walking frequency: 5-6 times per week seatbelt use: always ROS ROS ED Constitutional Constitutional ED: Denies chills or fever(s) Cardiovascular Cardiovascular: Denies chest pain Respiratory/Chest Respiratory/Chest: Denies cough or dyspnea Gastrointestinal Gastrointestinal: Reports abdominal pain, nausea and vomiting; Denies constipation or diarrhea Musculoskeletal Musculoskeletal: Denies arthralgias or myalgias Integumentary Denies rash Neurologic Neurologic: Reports headache(s); Denies paresthesias or weakness Hematologic/Lymphatic Hematologic/Lymphatic: Denies easy bleeding or easy bruising EXAM Physical Exam Const Vital Signs: 04/10/25 09:03 04/10/25 11:03 07/24/25 11:32 Temperature 99.1 F 99.1 F Temperature Source Oral Pulse Rate 96 68 68 Respiratory Rate 16 18 16 Blood Pressure 121/95 H 117/79 117/79 Blood Pressure Mean 103 91 91 Pulse Ox 100 100 100 Oxygen Delivery Method Room Air Room Air Positive well nourished and well developed General Appearance ED: well developed and NAD; Negative for pallor HEENT Reports moist mucous membranes normocephalic and atraumatic Eyes PERRL General Eye ED: Negative for pale conjunctiva or scleral icterus Neck supple Resp normal respiratory effort and clear to auscultation bilaterally Cardio regular rate and regular rhythm GI GI Narrative: Mild tenderness of the right upper quadrant. Negative Bermudez sign. Auscultation: normoactive bowel sounds Palpation: soft and tender epigastric; Negative for guarding or rigid Extremity full ROM General Extremety ED: Negative for edema General Extremity: Negative for edema Neuro moves all extremities Sensorium / Orientation: alert Motor Exam: Negative for general weakness Psych mental status grossly normal and thought process normal Skin General Skin Exam: Negative for jaundice or pallor MDM MDM MDM Narrative Medical decision making narrative: Patient evaluated for recurrence nausea, vomiting and postprandial symptoms yesterday as well as continued headache today. Differential includes choledocholithiasis, biliary colic, pancreatitis, dehydration, DERIC, urinary tract infection and tension headache. She does not report a thunderclap headache (it is more of a throbbing headache). Low suspicion for intracranial process such as subarachnoid hemorrhage or subdural hemorrhage. I do not think she requires CT imaging of the brain. Patient is given IV fluids, Toradol and Zofran. On repeat evaluation she states she is feeling better. As she has a history of requiring Linzess and a medium citrate by GI will obtain x-ray to ensure there is not significant stool burden or obstructive bowel gas pattern. Abdomen is soft and nonperitoneal. She is not having any vomiting today and has had bowel movements I do not think she needs CT of the abdomen pelvis. In addition she only has mild tenderness of her right upper quadrant and I do lower suspicion for acute cholecystitis. I do not think she requires a repeat ultrasound at this time. She has had multiple abdominal imaging and actually a HIDA scan earlier this year with decreased EF. X-ray reviewed by myself as well as radiology shows a nonobstructive bowel gas pattern. Lab work largely normal. Urinalysis most consistent with contamination (5-10 epithelial cells with no white blood cells). On repeat evaluation she is feeling improved with medications. Mother is not at the bedside. She voices a lot of frustration given that patient has had significant postprandial symptoms for months now. They request that I call general surgery to see if they could remove her gallbladder today. I did explain that she does not have findings consistent with acute cholecystitis at this time but I would reach out. I spoke with on-call surgery, Dr. Grayson, who states without gallstones (prior imaging does not show any gallstones), or acute obstructive process or leukocytosis he does not think she needs an emergent cholecystectomy. Does encourage her to call the office to see if they can get her in sooner. Patient assures that she will do that. Will begin a prescription for Zofran and Reglan to take as needed for nausea. Given return precautions. Counseled on pushing fluids to keep hydrated (did have 15 ketones in her urine) until her urine is clear yellow/pale yellow. Discussed trying protein drinks and she says she has had a hard time eating because of her symptoms. At this time she is not have low albumin or protein concerning for acute malnutrition. Lab Data Attestation: I reviewed the patient's lab results. Labs: Laboratory Results - last 24 hr 04/10/25 04/10/25 09:15 09:30 WBC 4.4 RBC 4.23 Hgb 12.6 Hct 37.7 MCV 89.1 MCH 29.8 MCHC 33.4 RDW Std Deviation 41.1 RDW Coeff of Ahsan 12.6 Plt Count 182 MPV 11.4 Immature Gran % (Auto) 0.200 Neut % (Auto) 55.4 Lymph % (Auto) 20.3 [place] % (Auto) 23.4 H Eos % (Auto) 0.2 Baso % (Auto) 0.5 Absolute Neuts (auto) 2.5 Absolute Lymphs (auto) 0.90 Nucleated RBC % 0 Sodium 139 Potassium 3.6 Chloride 106 Carbon Dioxide 21.2 Anion Gap 12 BUN 7 Creatinine 0.78 Estim Creat Clear Calc 88.72 Est GFR (MDRD) Non-Af 109 BUN/Creatinine Ratio 8.5 L Glucose 99 Calcium 9.0 Total Bilirubin 0.41 Direct Bilirubin 0.17 AST 26 ALT 16 Alkaline Phosphatase 51 Total Protein 7.0 Albumin 4.6 Globulin 2.5 Lipase 22 Urine Color Yellow Urine Clarity Sl. Cloudy Urine pH 6.0 Ur Specific [place] 1.025 Urine Protein 30 H Urine Glucose (UA) Normal Urine Ketones 15 H Urine Occult Blood 10 H Urine Nitrite Negative Urine Bilirubin Negative Urine Urobilinogen Normal Ur Leukocyte Esterase Negative Urine RBC 0 SEEN Urine WBC 0 SEEN Ur Squamous Epith Cells 5-10 SEEN Urine Bacteria 2+ Urine Mucus 2+ Urine Test Negative Radiography Diagnostic Testing: Clinical Impression(s) from Imaging Studies Abdomen X-Ray 04/10/25 09:20 IMPRESSION: Nonobstructive bowel gas pattern. Reading Location: [facility] Management Discussion w/another healthcare provider: Health Promotion Coordinator Discharge Plan Triage Chief Complaint: Abd Pain ED Provider: Anya Estrada Dx/Rx/DC Orders Clinical Impression: Headache, Nausea & vomiting, Dehydration Instructions: ED Dehydration (Adult), ED Headache, Tension, ED Vomiting (Adult) Prescriptions: New ondansetron 4 mg tablet,disintegrating 4 mg PO Q8H PRN PRN (Reason: Nausea) Qty: 20 0RF metoclopramide HCl [Reglan] 5 mg tablet 5 mg PO Q8H PRN (Reason: nausea and vomiting) Qty: 10 0RF No Action pantoprazole 40 mg tablet,delayed release (DR/EC) 40 mg PO QDAY Qty: 90 1RF Rx Instructions: take 30 minutes before breakfast in the morning prochlorperazine maleate 10 mg tablet 10 mg PO TID PRN (Reason: nausea and vomiting) Qty: 30 1RF docusate sodium [Colace] 100 mg capsule 100 mg PO BID 7 Days Qty: 14 2RF polyethylene glycol 3350 [Miralax] 17 gram/dose powder 4 g PO QDAY Qty: 238 0RF magnesium citrate Solution 300 ml PO ONCE Qty: 296 0RF Rx Instructions: as a single dose Linzess 145 mcg capsule 145 mcg PO QAM Qty: 30 2RF Rx Instructions: take 30 minutes prior to first meal of the day Primary Care Provider: Care Physician,No Primary Referrals: Dmitry Nunn MD [Med Staff - Active Staff] - Care Physician,No Primary [Primary Care Provider] - Activity Restrictions/Additional Instructions: Your workup today was not consistent with acute cholecystitis or inflammation/blockage of the gallbladder. Please continue to push fluids as you did have some findings of dehydration in your urine but they were only mild. You did not have any abnormalities of your liver/kidneys/electrolytes. I spoke with the general surgery who recommend calling the office to see if you get your appointment moved up. In the meantime as we discussed try to drink protein drinks if you can tolerate them. You been given 2 different nausea medications to use as needed. Return if you develop fever, worsening pain or progression of your symptoms Print Language: Macanese Disposition Disposition: Home, Self Care Discharge Date/Time: 04/10/25 11:32
[2025-04-10] MEDS: 0.9% Normal Saline (1000mL) 1,000 ML 999 ML IV (09:31)
[2025-04-10 09:35] LABS: Hematocrit 37.7 % (37-47); Hemoglobin 12.6 g/dL (12.0-15.0); Immature Granulocytes Count 0.010 X10^3/uL (0.0-0.0); Mean Corp Hgb Conc 33.4 g/dL (32-36); Mean Corpuscular Volume 89.1 fL (81-99); Mean Platelet Vol. 11.4 fl (6.2-12.0); NRBC Flagged by Analyzer 0 % (0-5); Platelet Count 182 K/mm3 (150-450); RBC Distribution Width CV 12.6 % (11.6-14.6); RBC Distribution Width SD 41.1 fl (35.1-43.9); Red Blood Count 4.23 M/mm3 (4.2-5.4); White Blood Count 4.4 K/mm3 (4.4-11.0)
[2025-04-10 09:42] LABS: Red Blood Cells-Urine 0 SEEN /hpf (0-5)
[2025-04-10 09:47] LABS: Color, Urine Yellow (Yellow); Glucose, Dipstick Normal (Normal); Ketone-Dipstick 15 mg/dl (Negative); Leukocyte Esterase-Dipstick Negative /ul (Negative); Nitrite-Dipstick Negative (Negative); Occult Blood-Urine 10 /ul (Negative); Protein-Dipstick 30 mg/dl (Negative); Specific Gravity, Urine 1.025 (1.002-1.030); Urine Bilirubin Dipstick Negative (Negative)
[2025-04-10 09:52] LABS: Mucous, Urine 2+ /hpf (<or=2+); Squamous Epithelial Cells - UA 5-10 SEEN /hpf (5-10)
[2025-04-10 09:53] LABS: Internal QC Validated? YES +Cl - CLEAR BKGD; Pregnancy, Urine Negative Negative; Record Kit Lot#,Urine Preg 0000962302
[2025-04-10 10:03] LABS: AST(SGOT) 26 U/L (<=31); Alanine Aminotransfer ALT/SGPT 16 U/L (<=34); Albumin, Serum 4.6 g/dL (3.5-5.0); Alkaline Phosphatase 51 U/L (35-104); Anion Gap 12 (5-15); BUN 7 mg/dL (4-19); BUN/Creat Ratio 8.5 RATIO (10-20); Bilirubin, Direct 0.17 mg/dL (0.00-0.30); Calcium,Total 9.0 mg/dL (7.6-11.0); Carbon Dioxide 21.2 mmol/L (21.0-32.0); Chloride 106 mmol/L (98-108); Estimated Creatinine Clearance 88.72 ml/min (50-250); Globulin 2.5 g/dL (2.2-4.2); Glucose 99 mg/dL (70-99); Lipase 22 U/L (13-75); Potassium 3.6 mmol/L (3.3-5.1)
[2025-04-10 11:03] VITALS: BP 117/79; PULSE 68; RESP 18; O2SAT 100
[2025-04-10 11:32] VITALS: BP 117/79; PULSE 68; RESP 16; TEMP 37.3; O2SAT 100
== END 2025-04-10 11:32 | disposition home or self-care (01) ==
PROVIDERS: Emergency Provider Emergency Medicine; Visit Provider Emergency Medicine
DX: R51.9 Headache, unspecified (principal); E86.0 Dehydration; R11.2 Nausea with vomiting, unspecified; F17.290 Nicotine dependence, other tobacco product, uncomplicated; Z79.899 Other long term (current) drug therapy
CPT/HCPCS: 74019; 80048; 80076; 81001; 81025; 83690; 85025; 96361; 96374; 96375; 96376; 99283; A4216; J2405

== ENCOUNTER 2025-04-30 10:12 | Day surgery (SDC) | payer MEDICAID, SELFPAY ==
[2025-04-30] VITALS (10 sets, daily range): BP systolic 98–123; BP diastolic 58–89; PULSE 71–105; RESP 12–20; TEMP 36.3–36.6; O2SAT 94–100; BMI 23.3
--- NOTE | 2025-04-30 10:17 | EKG12_ITS ---
Test Reason : PREOP Blood Pressure : */* mmHG Vent. Rate : 62 BPM Atrial Rate : 62 BPM P-R Int : 128 ms QRS Dur : 76 ms QT Int : 384 ms P-R-T Axes : 73 64 60 degrees QTcB Int : 389 ms Normal sinus rhythm Normal ECG No previous ECGs available Confirmed by Guillaume Ray ([id number]), story editor MARY CHACON ([id number]) on 05/01/2025 6:28:44 AM Referred By: Dmitry Nunn Confirmed By: Guillaume Ray
[2025-04-30 10:41] LABS: Internal QC Validated? YES +Cl - CLEAR BKGD; Pregnancy, Urine Negative Negative; Record Kit Lot#,Urine Preg 0000947241
[2025-04-30] MEDS: Lactated Ringers 1,000 ML 15 ML IV (10:44)
--- NOTE | 2025-04-30 11:31 | PRE.ANES_ITS ---
ASA Classification* ASA Classification ASA Classification: 2 Assessment & Plan Anesthesia* Anesthesia Assessment Anesthesia Assessment: Discussed sedation and/or anesthesia options, risks, benefits, and alternatives with patient/parents/legal guardian/POA. Questions invited. The patient/parents/legal guardian/POA seems to understand and agrees to proceed with anesthesia plan. Reviewed the physical assessment, medical history, allergy history and patient home medications list prior to surgery/procedure/anesthetic and documented any changes. Performed airway and anesthesia risk assessments. Anesthesia Type Anesthesia Type: General History Source History Obtained from:: Patient and Chart Anesthesia Focused Assessment* Temperature: 98 F Pulse Rate: 77 Blood Pressure: 99/76 Respiratory Rate: 16 Pulse Ox: 100 Oxygen Delivery Method: Room Air Airway Assessment Mouth opens: >3 cm Mallampati Score: II Teeth Condition: Intact Neck Range of motion (ROM): Full ROM Labs Anesthesia Preop lab: CBC WBC 4.4 K/mm3 (4.4-11.0) 04/10/25 09:15 04/10/25 RBC 4.23 M/mm3 (4.2-5.4) 04/10/25 09:15 04/10/25 Hgb 12.6 g/dL (12.0-15.0) 04/10/25 09:15 04/10/25 Hct 37.7 % (37-47) 04/10/25 09:15 04/10/25 Plt Count 182 K/mm3 (150-450) 04/10/25 09:15 04/10/25 CHEMISTRY Potassium 3.6 mmol/L (3.3-5.1) 04/10/25 09:15 04/10/25 Sodium 139 mmol/L (133-145) 04/10/25 09:15 04/10/25 BUN 7 mg/dL (4-19) 04/10/25 09:15 04/10/25 Creatinine 0.78 mg/dL (0.70-1.20) 04/10/25 09:15 04/10/25 Glucose 99 mg/dL (70-99) 04/10/25 09:15 04/10/25 TSH 1.100 uIU/mL (0.300-4.200) 01/17/25 13:37 05/0 11/12 COAG HCG, Quant 37867 mIU/mL (1-3) H 06/17/19 15:49 06/17/19 Urine Test Negative Negative 04/30/25 10:22 04/30/25 Tst Clinic Negative 09/12/23 15:37 09/12/23 Pre-Assessment Diagnosis/Proposed Procedure Planned Operative Procedure(s): Laparoscopic, Cholecystectomy with IOC Anesthesia History Anesthesia History - sharepoint net developer: Anesthesia History - sharepoint net developer Hx Hospitalization No 04/23/25 13:04 Any Problems With Anesthesia No 04/23/25 13:04 Cholinesterase deficiency No 04/23/25 13:04 You/Your Family Experience No 04/23/25 13:04 fever (hyperthermia) with Relationship Recent Exposure to Contagious No 04/30/25 10:40 Disease Does patient have nerve No 04/23/25 13:04 stimulator Patient instructed to have device shut off --Does patient have Pacemaker No 04/30/25 10:40 or ICD? When Was Last Pacemaker Check QUESTION #4 FULL TEXT: You/Your Family Experience fever (hyperthermia) with Anesthesia Last Oral Intake Last Oral intake: Last Oral Intake NPO since 21:00 04/30/25 10:40 Meds taken in AM with sips of Yes 04/30/25 10:40 water? Meds patient instructed to take am of surgery PONV PONV - sharepoint net developer: PONV - sharepoint net developer Female Yes 04/23/25 13:04 HX of Motion Sickness Yes 04/23/25 13:04 HX of N/V After Surgery Yes 04/23/25 13:04 Non-Smoker No 04/23/25 13:04 Duration of Surgery greater Yes 04/23/25 13:04 than 60 minutes Number of Risk Factors 4 04/23/25 13:04 PONV Score Severe Risk 04/23/25 13:04 Height & Weight Height & Weight: Anesthesia: Height & Weight Height 5 ft 2 in 04/30/25 10:40 Weight: 58 kg 04/30/25 10:40 Body Mass Index (BMI) 23.3 04/30/25 10:40 Respiratory Assessment Respiratory Assessment - sharepoint net developer: Respiratory Tract Infection Hx - sharepoint net developer Hx Respiratory Tract Infection No 04/23/25 13:04 STOP Sleep Apnea STOP Sleep Apnea - sharepoint net developer: STOP Sleep Apnea - sharepoint net developer Hx Hypertension No 04/23/25 13:04 Hx Sleep Apnea No 04/23/25 13:04 CPAP BIPAP Do you snore loudly (louder Yes 04/23/25 13:04 than talking or can be heard Do you often feel tired/ No 04/23/25 13:04 fatigued/ sleepy during daytime? Has anyone observed you stop No 04/23/25 13:04 breathing during sleep? STOP Results Negative 04/23/25 13:04 QUESTION #5 FULL TEXT : Do you snore loudly (louder than talking or can be heard through closed doors)? Tobacco Use History Tobacco Use History - sharepoint net developer: Tobacco Use History - sharepoint net developer Tobacco Use Smoking Status Current every day smoker 04/23/25 13:04 Hx Tobacco Use Yes 04/23/25 13:04 Years Smoking Packs Smoked per Day Smoking Cessation Date was within the last 15 years Hx Smoking Cessation Date Hx Smoking Cessation No 04/23/25 13:04 Counseling Hematologic Medial History Hematologic Hx - sharepoint net developer: Hematologic Medical Hx - biometrics analyst Hx of Blood Transfusion No 04/23/25 13:04 Hx of Transfusion in last 3 No 04/23/25 13:04 Months Date of Last Transfusion (if within last 3 months) Ever experience any problems No 04/23/25 13:04 with transfusion(s)? Specify any problems Hx of Preganancy in last 3 No 04/23/25 13:04 Months Nurse Filling Out Transfusion JAYLA 04/23/25 13:04 & Questions: Date: 04/23/25 04/23/25 13:04 Time: 13:05 04/23/25 13:04 Patient unable to answer at this time (ie. confused, unrespo /Reproduction History /Reproductive History - sharepoint net developer: /Reproductive Hx- sharepoint net developer Hx Now No 04/23/25 13:04 Gestational Age (in weeks): EDC: Hx Hx Para Hx Section SAB No 04/23/25 13:04 Active Medications Active Medications: Current Medications Generic Name Dose Route Start Last Admin Trade Name Freq PRN Reason Stop Dose Admin Lactated Ringer's 1,000 mls @ 15 mls/hr 04/30/25 10:30 04/30/25 10:44 IV 15 mls/hr .Q48H ARTEMIO Administration PFSH Medical History Anxiety Marijuana use Alcohol use Low iron Anemia Easy bruising Dietary restriction Heartburn Smoker Biliary dyskinesia Gallbladder problem Abdominal pain Generalized headaches Gastrointestinal problem UTI (urinary tract infection) Home Medications ?Medication ?Instructions ?Recorded ?Last Taken ?Type polyethylene glycol 3350 17 4 g PO QDAY #238 grams 07/12 Unknown Rx gram/dose oral powder (Miralax) linaclotide 145 mcg capsule 145 mcg PO QAM #30 caps Unknown Rx (Linzess) ondansetron 4 mg disintegrating 4 mg PO Q8H PRN PRN Na usea #30 tabs 04/25/25 Unknown Rx tablet Allergy/AdvReac Type Severity Reaction Status Date / Time latex Allergy Rash Verified 04/30/25 10:32 Family History Grandfather Heart disease Unknown Thyroid cancer Other Anxiety Bone cancer Cancer Liver disease Pancreatic cancer Surgical History H/O section Social History current occupational status: employed current occupation: [employer] Smoking Status: Current every day smoker tobacco type: e-cigarettes alcohol intake: never substance use type: marijuana caffeine: No what type of physical activity do you participate in: walking frequency: 5-6 times per week seatbelt use: always Review of Systems (Anesthesia) ROS Narrative System reviewed and no additional complaints, except as documented.
--- NOTE | 2025-04-30 12:00 | GALL_PTH ---
PATIENT: NERIS POWERS LOC: [facility] [place] U#:[id number] AGE/SX: 25/ ROOM: RE04/30/[address]: Dr. Dmitry Nunn MD : 2000 BED: DIS: 04/30/2025 SPEC #: [id number] RECD: 04/30/25 15:16 STATUS: MOI RERebecca #: [id number] DOC: 04/30/25 12:[address]: Dmitry Nunn DEPT: SURGICAL PATHOLOGY RECD BY: Mike Trent ENTERED: 04/30/25 15:35 SP TYPE: NIELS AGUILA DR: No Primary Care Phys Tissues: A - Gallbladder, NOS Procedures: Surgery Specimen Level III HEADER OPERATION: Laparoscopic cholecystectomy PRE-OP DIAGNOSIS: Right upper quadrant pain TISSUE SUBMITTED: A- Gallbladder MICROSCOPIC DIAGNOSIS A. Gallbladder, cholecystectomy: - No specific pathologic change. - Benign pericystic lymph node x1. MICROSCOPIC DESCRIPTION Slides are reviewed. GROSS DESCRIPTION A. Received in formalin labeled with the patient's name and date of . Designated as gallbladder is a 7.7 x 2.8 x 2.8 cm pink-purple to green, intact gallbladder with attached patent cystic duct (inked black, shaved). A 0.7 cm lymph node is present. Opening reveals light green tenacious bile, devoid of choleliths. The mucosa is dumont-pink to red and granular with a maximum wall thickness of 0.1 cm. Cholesterolosis is not present. Electric Accounting Machine Operator sections are submitted in 1 cassette. RI 04/30/2025 CPT:19273
[2025-04-30] MEDS: Lactated Ringers 1,000 ML 1000 ML IV (12:45)
--- NOTE | 2025-04-30 13:05 | HP.PCM_ITS ---
HPI - General General Date of Admission: 04/30/25 Date of Service: 04/30/25 Chief Complaint: Right upper quadrant pain HPI Narrative NERIS POWERS, is a 25 F who presents for elective laparoscopic cholecystectomy with cholangiograms. Patient has multiple GI issues and complaints. She has undergone extensive workup. HIDA scan showed a low ejection fraction concerning for biliary dyskinesia. Some of her symptoms seem consistent with biliary colic although some symptoms do not. I did offer her the option of a laparoscopic cholecystectomy as treatment with the understanding that this may not relieve all of her GI symptoms. She is understanding of this and wishes to proceed [facility] [place] Medical History Anxiety Marijuana use Alcohol use Low iron Anemia Easy bruising Dietary restriction Heartburn Smoker Biliary dyskinesia Gallbladder problem Abdominal pain Generalized headaches Gastrointestinal problem UTI (urinary tract infection) Home Medications ?Medication ?Instructions ?Recorded ?Last Taken ?Type polyethylene glycol 3350 17 4 g PO QDAY #238 grams 07/12 Unknown Rx gram/dose oral powder (Miralax) linaclotide 145 mcg capsule 145 mcg PO QAM #30 caps Unknown Rx (Linzess) ondansetron 4 mg disintegrating 4 mg PO Q8H PRN PRN Na usea #30 tabs 04/25/25 Unknown Rx tablet Allergy/AdvReac Type Severity Reaction Status Date / Time latex Allergy Rash Verified 04/30/25 10:32 Family History Grandfather Heart disease Unknown Thyroid cancer Other Anxiety Bone cancer Cancer Liver disease Pancreatic cancer Surgical History H/O section Social History current occupational status: employed current occupation: [employer] Smoking Status: Current every day smoker tobacco type: e-cigarettes alcohol intake: never substance use type: marijuana caffeine: No what type of physical activity do you participate in: walking frequency: 5-6 times per week seatbelt use: always Vital Signs Vital Signs Vital Signs: 04/30/25 10:40 04/30/25 10:40 04/30/25 11:32 Temperature 98 F 98 F Temperature Source Temporal Pulse Rate 77 77 Respiratory Rate 16 16 Respiratory Pattern Normal Blood Pressure 99/76 99/76 Blood Pressure Mean 83 Blood Pressure Source Monitor Blood Pressure Position Semi-Fowlers Blood Pressure Location Left Arm Pulse Ox 100 100 Oxygen Delivery Method Room Air Room Air Weight Weight: 127 lb 13.89 oz Body Mass Index (BMI) 23.3 Physical Exam Const alert, oriented x3 and no apparent distress Results Lab / Micro Data Labs: Laboratory Results - last 24 hr 04/30/25 10:22: Urine Test Negative Assessment & Plan Assessment/Plan (1) RUQ pain: PLAN: Plan The patient is a 25-year-old female in need of a laparoscopic cholecystectomy. We discussed the details of the planned procedure and she wishes to proceed. This began momentarily
[2025-04-30] MEDS: Midazolam 2 MG/2 ML Syringe IV (13:28)
[2025-04-30] MEDS: Lidocaine 1% (5 ml sdv) 5 ML Vial IV (13:28)
[2025-04-30] MEDS: fentaNYL 100 MCG/2 ML Ampul IV (13:54)
[2025-04-30] MEDS: Bupiv/Epi 0.25% 30 ML Vial (14:01)
--- NOTE | 2025-04-30 14:33 | DCINST_ITS ---
Discharge Instructions Diet Discharge Diet: Light diet - advance as tolerated Activity Discharge Activity: Return to Normal Activity and May Shower May shower in (days): 1 Ice area for (Minutes): 30 Lifting Restrictions: No lifting pushing or pulling more than 20 pounds for 4 weeks Dressing / Incision Call your doctor if your incision/area has: Continuous Slow Oozing, Sudden Increased Bleeding, Increased Pain/ Swelling, Increased Redness, Foul Smelling Discharge and Swelling at the incision site Call your doctor if you observe: Fever of 101 or Higher Cleanse incision/area with: Soap & Water Additional Dressing/Incision Instructions:: Wear abdominal binder for comfort Follow Up Care Please Follow Up With: Dmitry Nunn MD When: 2 weeks. Please call office to schedule appointment Test Results: Test results from this visit will be discussed in further detail at your follow- up appointment, if applicable. Discharge Plan Admission Primary Reason for Your Visit: Laparoscopic cholecystectomy Attending Provider: Dmitry Nunn Primary Care Provider: Care Physician,Edwina Primary Instructions Print Language: French Discharge Orders/Prescriptions Prescriptions: New oxycodone-acetaminophen [Percocet] 5-325 mg tablet 1 tab PO TID PRN (Reason: pain) 3 Days Qty: 10 0RF Continued polyethylene glycol 3350 [Miralax] 17 gram/dose powder 4 g PO QDAY Qty: 238 0RF Linzess 145 mcg capsule 145 mcg PO QAM Qty: 30 2RF Rx Instructions: take 30 minutes prior to first meal of the day ondansetron 4 mg tablet,disintegrating 4 mg PO Q8H PRN PRN (Reason: Nausea) Qty: 30 2RF Referrals / Follow Up: Care Physician,No Primary [Primary Care Provider] - Disposition Disposition (needs filled in before D/C Order can be placed): Home, Self Care
--- NOTE | 2025-04-30 14:36 | PCM.OPRPT ---
Procedures Digestive 40xxx-49xxx: 45806 Laparoscopic cholecystectomy Operative Report (Standard) Operative Information Date of Procedure: 04/30/25 Pre-Operative Diagnosis: Biliary dyskinesia Post-Operative Diagnosis: Same Surgery/Procedure Performed: Laparoscopic cholecystectomy with attempted cholangiograms leasing assistant: Yes Outside Sales Account Representative: Alessandra Schwartz Tasks completed by contract assistant: Closing, Trocar, Retracting and Other Additional assistant mechanic?: No Type of Anesthesia: General and Local RN Documented Start/Stop Times: Operation Date: 04/30/25 12:00 Case Time Into Pre-Op 04/30/25 10:18 Out of Pre-Op 04/30/25 13:19 Anesthesia Start 04/30/25 13:23 Into Room 04/30/25 13:23 Procedure Start 04/30/25 13:46 Procedure Start Time: 13:46 Procedure Stop Time: 14:40 Select all DRAINS/GRAFTS/IMPLANTS that apply: None Estimated Blood Loss: Minimal Specimen collected: Yes Description of specimen(s) removed: Gallbladder Description of surgery: The patient is a 25-year-old female recently seen through the office with multiple GI issues and complaints. She has undergone a pretty extensive workup. Part of this workup she underwent an ultrasound of the right upper quadrant which was unremarkable however she underwent a HIDA scan that showed a below normal ejection fraction consistent with biliary dyskinesia. I felt that at least some of her symptoms were consistent with biliary colic although she had some symptoms that were probably independent of her gallbladder. We had a lengthy discussion regarding possible cholecystectomy. I stated that we could certainly proceed with cholecystectomy in hopes that this may improve much of her symptoms however I could not guarantee that this would resolve all of her GI issues and complaints. She was agreeable to this and understood this and wished to proceed with cholecystectomy. We discussed the details of the planned procedure including the risks benefits and alternatives. She wished to proceed. The patient was brought to the operating today following informed consent. She was placed supine on the operative table with arms outstretched on arm boards. The abdomen is then prepped and draped in the usual sterile manner. A 5 mm incision was made just below the umbilicus which a 5 mm trocar was placed optically. This was placed without incident. Once in place the abdomen is then fully insufflated with CO2 gas. A 5 mm 0 degree scope was inserted there were no signs of bowel or vascular injury. Next two 5 mm trocars were placed under direct visualization in the right upper quadrant. These were placed without incident. Also a 10 mm trocar was placed under direct visualization in the epigastric area. The patient was then positioned with some head up and rolled to the left to improve exposure to the gallbladder. The gallbladder was identified it was grasped and reflected in a cephalad direction. The peritoneum on either side of the gallbladder was then incised using electrocautery this improved mobility of the gallbladder infundibulum. The cystic duct and cystic artery were then dissected out circumferentially. The lower aspect of the gallbladder was dissected off of the cystic plate which allowed a critical view of safety to be obtained in which 2 and only 2 structures were going to and from the gallbladder. There is 2 structures being the cystic duct and cystic artery. The duct was addressed first by placing a 10 mm clip on the gallbladder side of the duct. A small ductotomy was made using curved scissors. There was positive return of small amount of bile. The duct was very small in caliber. Numerous attempts were made to insert the cholangiogram catheter into the cystic duct. The guidewire was able to be passed easily however the cholangiogram catheter itself was too large to fit into the opening. The opening was also enlarged and still could not accommodate the cholangiogram catheter. At this point we decided to forego further attempts of cholangiograms. Patient had no stones on ultrasound and the anatomy seem to be clearly understood and interpreted. At this point, 10 mm clips x 3 were applied to the cystic duct stump and this was then transected. The cystic artery was clipped and transected in a similar manner. The gallbladder was then easily removed from the liver bed using electrocautery. Once freed was placed into a bag and brought out through the 10 mm trocar site. The trocar was replaced. The right upper quadrant is then copiously irrigated. Hemostasis was excellent. The fascia at the 10 mm trocar site was closed using 0 PDS with the aid of the fascial closure device. Local anesthetic was injected into each of the incisions. The trocars were removed and insufflation was allowed to escape. The incision was then closed with 4-0 Vicryl and skin glue was applied as dressing. She was awakened from anesthesia and taken to recovery in good condition. An abdominal binder was also placed per patient request Surgical Findings: Unable to perform cholangiograms due to small caliber cystic duct Complications Complications: No Admit VTE Documentation VTE Present on Admission: No VTE Mechan Device Prophylaxis: SCD's VTE Pharm Prophylaxis ordered?: No Reason prophylaxis not ordered: Treatment Not Indicated
--- NOTE | 2025-04-30 14:59 | PCM.POST.ANE ---
Anesthesia: Postop Eval I Current Vital Signs Temperature: 97.3 F Pulse Rate: 97 Blood Pressure: 119/75 Respiratory Rate: 20 Pulse Ox: 98 Oxygen Delivery Method: Room Air Assessment Airway patent: Yes Spontaneous unlabored respirations: Yes Mental status: Awake nausea: No Vomiting: No Anesthesia Complication: No Fluid Hydration Crystalloid volume administer (ml): 1,000 Total IV fluid infused: 1,000 Progress Note Anesthesia document: Postop Eval 1 completed: Yes
--- NOTE | 2025-04-30 16:36 | POSTOPAN2_ITS ---
Anesthesia Postop Eval I Sum Postop Eval Completion status Anesthesia document: Postop Eval 1 completed: Yes Anesthesia Postop Eval I Summary Anesthesia Postop Eval I Summary: Anesthesia Postop Eval I: Assessment Summary Airway patent Yes 04/30/25 15:00 RELIGIOUS EDUCATION DIRECTOR.JDEF Spontaneous unlabored Yes 04/30/25 15:00 RELIGIOUS EDUCATION DIRECTOR.JDEF respirations Mental status Awake 04/30/25 15:00 RELIGIOUS EDUCATION DIRECTOR.JDEF nausea No 04/30/25 15:00 RELIGIOUS EDUCATION DIRECTOR.JDEF Vomiting No 04/30/25 15:00 RELIGIOUS EDUCATION DIRECTOR.JDEF Anesthesia Postop Eval I: Fluid Summary Crystalloid volume administer 1,000 04/30/25 15:00 RELIGIOUS EDUCATION DIRECTOR.JDEF (ml) Colloids volume administered ( ml) Blood Product volume administered (ml) Total IV fluid infused 1,000 04/30/25 15:00 RELIGIOUS EDUCATION DIRECTOR.JDEF Anesthesia Postop Eval I: Summary Notes Anesthesia Complication No 04/30/25 15:00 RELIGIOUS EDUCATION DIRECTOR.JDEF Anesthesia Complication Comment: Post-operative progress note Anesthesia: Postop Eval II Evaluation Mental status: Awake Pain Level: 2 nausea: No Vomiting: No
--- NOTE | 2025-04-30 16:36 | PCM.POSTANE2 ---
Anesthesia Postop Eval I Sum Postop Eval Completion status Anesthesia document: Postop Eval 1 completed: Yes Anesthesia Postop Eval I Summary Anesthesia Postop Eval I Summary: Anesthesia Postop Eval I: Assessment Summary Airway patent Yes 04/30/25 15:00 EDIPHONE OPERATOR.JDEF Spontaneous unlabored Yes 04/30/25 15:00 EDIPHONE OPERATOR.JDEF respirations Mental status Awake 04/30/25 15:00 EDIPHONE OPERATOR.JDEF nausea No 04/30/25 15:00 EDIPHONE OPERATOR.JDEF Vomiting No 04/30/25 15:00 EDIPHONE OPERATOR.JDEF Anesthesia Postop Eval I: Fluid Summary Crystalloid volume administer 1,000 04/30/25 15:00 EDIPHONE OPERATOR.JDEF (ml) Colloids volume administered ( ml) Blood Product volume administered (ml) Total IV fluid infused 1,000 04/30/25 15:00 EDIPHONE OPERATOR.JDEF Anesthesia Postop Eval I: Summary Notes Anesthesia Complication No 04/30/25 15:00 EDIPHONE OPERATOR.JDEF Anesthesia Complication Comment: Post-operative progress note Anesthesia: Postop Eval II Evaluation Mental status: Awake Pain Level: 2 nausea: No Vomiting: No
--- OUTSIDE RECORDS SUMMARY | 2025-04-30 18:56 | XMS RPT_ITS | CCD ---
Author Organization [facility]iniSywa Care Team Providers Care In School Suspension Aide Name Role Phone Jacey Domínguez MD Primary Care Provider Dr. Jacey Domínguez Primary Care Provider Dr. Jacey Domínguez Referring Provider [place] [employer] DEMONSTRATOR, COUNTY HOME DEMONSTRATOR-C [place] Attending Provider Jacey Domínguez MD Primary Care Provider Dr. Jacey Domínguez Primary Care Provider Dr. Jacey Domínguez Referring Provider [place] [employer] HOME DEMONSTRATOR, COUNTY HOME DEMONSTRATOR-C [place] Attending Provider Dr. Jacey Domínguez Primary Care Provider Dr. Jacey Domínguez Referring Provider CANDICE Santoro Attending Provider Unavailable Primary Care Provider UnavailDr. Jacey Gabriel MD Primary Care Provider Dr. Jacey Domínguez MD Referring Provider [place] [employer] DEMONSTRATOR-C, [place] Attending Provider [place] [employer] DEMONSTRATOR-C, [place] Referring Provider Care Physician, No Primary Primary Care Provider Unavailable Dr. Theo Pozo DO Emergency Provider [phone] Theo Pozo DO Attending Provider Care Physician, No Primary Referring Provider Un available Robby BARRETT-Oneyda Inman Attending Provider Oneyda Ho Referring Provider Aleyda SEBASTIAN Dr. Marc Attending Provider Aleyda SEBASTIAN, Dr. Tran Referring Provider Dr. Anya Estrada DO Emergency Provider [phone] Care Physician, No Primary Primary Care Provider Unavailable oRbby MIDDLETONCOneyda Attending Provider Care Physician, No Primary Referring Provider Un available Dr. Anya Estrada DO Attending Provider Arline ROSA, Dr. Dmitry Whitehead Attending Provider Seifried, Jacey Primary Care Unavailable [place] [employer] DEMONSTRATOR, [place] Referring Unavailable [place] [employer] HOME DEMONSTRATOR, [place] Attending Unavailable Care Physician, No Primary Primary Care Unava ilable Oneyda Bustamante Referring Unavailable Oneyda Bustamante Attending Unavailable Marc Maynard Attending Unavailable Care Physician, No Primary Primary Care Unava ilable Care Physician, No Primary Referring Unava ilable Care Physician, No Primary Primary Care Unava ilable Care Physician, No Primary Referring Unava ilable Oneyda Bustamante Attending Unavailable Care Physician, No Primary Primary Care Unava ilable Care Physician, No Primary Referring Unava ilable Marc Maynard Attending Unavailable FriendMarc Referring Unavailable Care Physician, No Primary Primary Care Unava ilable Dmitry Nunn Attending Unavailable Seifried, Jacey Referring Unavailable Seifried, Jacey Primary Care Unavailable [place] [employer] HOME DEMONSTRATOR, [place] Attending Unavailable Seifried, Jacey Referring Unavailable Seifried, Jacey Primary Care Unavailable [place] [employer] HOME DEMONSTRATOR, [place] Attending Unavailable Care Physician, No Primary Referring Unava ilable Care Physician, No Primary Primary Care Unava ilable Oneyda Bustamante Attending Unavailable Jose Baron Referring Unavailable Care Physician, No Primary Primary Care Unava ilable Dmitry Nunn Attending Unavailable [place] [employer] DEMONSTRATOR, [place] Attending Unavailable Seifried, Jacey Primary Care Unavailable [place] [employer] HOME DEMONSTRATOR, [place] Referring Unavailable FriendMarc Attending Unavailable Care Physician, No Primary Primary Care Unava ilable Marc Maynard Referring Unavailable Care Physician, No Primary Primary Care Unava ilable Anya Estrada Attending Unavailable SánchezTheo bernal Attending Unavailable Care Physician, No Primary Primary Care Unava ilable Noah Maynardn Attending Unavailable Care Physician, No Primary Primary Care Unava ilable Friend, Marc Referring Unavailable Care Physician, No Primary Primary Care Unava ilable Friend, Marc Attending Unavailable Friend, Marc Referring Unavailable Arline ROSA, Dr. Dmitry Whitehead Referring Provider Dr. Dmitry Nunn MD Other Provider Allergies Allergy Classification Reported Allergen(s) Allergy Type Date of Onset Reaction(s) Facility (20 sources) Latex; Translations: [LATEX] Propensity to adverse reactions to drug 2 Rash [facility] (1 source) Latex Drug allergy (disorder) 5 [facility] Repository Medications Current Medications Medication Drug Class(es) Dates Sig (Normalized) Sig (Original) acetaminophen 325 mg / oxyCODONE hydrochloride 5 mg oral tablet (14 sources) Opioid Agonist Start: 04-30-2025 take 1 tablet by mouth three times daily as needed for pain Oxycodone-Acetami nophen (Percocet) 5-325 mg tablet Active 1 {tbl} PO THREE TIMES A DAY as needed for pain 10 3 0 April 30, 2025 Right upper quadrant abdominal pain Right upper quadrant pain Start: 02-11-2020 End: 02-16-2020 Oxycodone-Acetaminophen 1 TA BLET tablet Discontinued 1 - 2 {tbl} PO EVERY 6 HOURS NEEDED as needed for Pain 15 5 0 February 11, 2020 February 15, 2020 12:00am February 16, 2020 12:02am Other acute postprocedural pain Start: 02-11-2020 End: 02-16-2020 take 1 tablet by mouth every six hours as needed Oxycodone-Acetaminophen Discontinued 1 - 2 TABLET PO EVERY 6 HOURS NEEDED 15 5 February 11, 2020 February 16, 2020 12:02am linaclotide 0.145 mg oral capsule (3 sources) Guanylate Cyclase-C Agonist Start: 04-07-2025 take 1 capsule by mouth at mealtime Linaclotide (Linzess) 145 mcg capsule Active 145 ug PO EVERY MORNING 30 2 April 07, 2025 12:00am take 30 minutes prior to first meal of the day Ravalli (Nk) (1 source) Start: 12-12-2024 Ravalli (Nk) Active December 12, 2024 12:00am omeprazole 20 mg delayed release oral capsule (6 sources) Proton Pump Inhibitor Start: 02-28-2022 End: 03-30-2022 take 1 capsule by mouth once daily omeprazole (PRILOSEC) 20 mg capsule Indications: Nausea and vomiting, unspecified vomiting type , RUQ pain Take 1 capsule by mouth once daily. 30 capsule 1 02/28/2022 Active Comment on above: Take 1 capsule by mo [facility] once daily. ondansetron 4 mg disintegrating oral tablet (17 sources) Serotonin-3 Receptor Antagonist Start: 04-10-2025 End: 04-25-2025 take 1 tablet by mouth every eight hours as needed for nausea Ondansetron 4 mg tablet,disintegra ting Active 4 mg PO EVERY 8 HOURS NEEDED as needed for Nausea 30 April 25, 2025 8:47am Start: 08-01-2020 End: 08-09-2021 take 1 tablet by mouth every eight hours as needed for nausea Ondansetron 4 MG tablet Discontinued 4 mg PO EVERY 8 HOURS NEEDED as needed for Nausea August 01, 2020 1:00am August 09, 2021 10:58am polyethylene glycol 3350 73154 mg powder for oral solution (6 sources) Osmotic Laxative Start: 01-25-2025 Polyethylene Glycol 3350 (Miralax) 17 gram/dose powder Active 4 g PO daily 238 0 January 25, 2025 12:00am Completed/Discontinued Medications Medication Drug Class(es) Dates Sig (Normalized) Sig (Original) ampicillin 500 mg oral capsule (20 sources) Penicillin-class Antibacterial Start: 11-06-2019 End: 11-11-2019 take 1 capsule by mouth every eight hours Ampicillin 500 mg capsule Discontinued 500 mg PO Q8H 15 5 0 November 06, 2019 1:00am November 10, 2019 1:00am November 11, 2019 1:08am Start: 07-10-2019 End: 07-15-2019 take 1 capsule by mouth every eight hours Ampicillin 500 mg capsule Discontinued 500 mg PO Q8H 15 5 0 July 10, 2019 12:00am July 14, 2019 12:00am July 15, 2019 12:08am bisacodyl 10 mg rectal suppository (6 sources) Stimulant Laxative Start: 01-25-2025 End: 02-01-2025 Bisacodyl 10 mg suppository Discontinued 10 mg RC daily 50 7 0 January 25, 2025 12:00am January 31, 2025 12:00am February 01, 2025 12:10am Desog-E.Estradiol/E .Estradiol (13 sources) Progestin, Estrogen Start: 04-09-2018 End: 04-30-2018 take 0.15 tablet by mouth once daily Desog-E.Estradiol/E .Estradiol (Kariva (28)) 0.15-0.02 mgx21 /0.01 mg x 5 tablet Discontinued 1 {tbl} PO daily 13 12April 09, 2018 12:00am April 30, 2018 4:58pm Start: 04-09-2018 End: 04-30-2018 take 0.15 tablet by mouth once daily Desog-E.Estradiol/E.Estradiol (Kariva (2 8)) 0.15-0.02 mgx21 /0.01 mg x 5 tablet Discontinued 1 {tbl} PO daily April 09, 2018 12:00am April 30, 2018 4:58pm Start: 04-09-2018 End: 04-30-2018 take 0.15 tablet by mouth once daily Desog-E.Estradiol/E.Estradiol (Kariva (2 8)) 0.15-0.02 mgx21 /0.01 mg x 5 tablet Discontinued 1 TABLET PO daily April 09, 2018 12:00am April 30, 2018 4:58pm Start: 04-09-2018 End: 04-30-2018 take 0.15 tablet by mouth once daily Desog-E.Estradiol/E.Estradiol (Kariva (2 8)) 0.15-0.02 mgx21 /0.01 mg x 5 tablet Discontinued 1 TABLET PO daily April 08, 2018 11:00pm April 30, 2018 3:58pm docusate sodium 100 mg oral capsule (6 sources) Start: 01-25-2025 End: 04-23-2025 take 1 capsule by mouth twice daily Docusate Sodium (Colace) 100 mg capsule Discontinued 100 mg PO TWICE A DAY 14 7 2 January 25, 2025 12:00am April 23, 2025 12:56pm estradiol 2 mg oral tablet (8 sources) Estrogen Start: 06-11-2024 End: 12-12-2024 take 1 tablet by mouth once daily Estradiol 2 mg tablet Discontinued 2 mg PO daily June 11, 2024 12:00am December 12, 2024 1:49pm Norgestimate-Ethi nyl Estradiol (20 sources) Progestin, Estrogen Start: 11-22-2018 End: 07-08-2019 Norgestimate-Ethiny l Estradiol (Previfem) 0.25-35 mg-mcg tablet Discontinued 1 {tbl} PO daily 84 November 22, 2018 4:35pm July 08, 2019 2:35pm Start: 11-22-2018 End: 07-08-2019 Norgestimate-Ethinyl Estradi ol (Previfem) 0.25-35 mg-mcg tablet Discontinued 1 {tbl} PO daily November 22, 2018 4:35pm July 08, 2019 2:35pm Start: 11-22-2018 End: 07-08-2019 take 1 tablet by mouth once daily Norgestimate-Ethinyl Estradiol (Previfem) 0.25-35 mg-mcg tablet Discontinued 1 TABLET PO daily November 22, 2018 4:35pm July 08, 2019 2:35pm Start: 11-22-2018 End: 07-08-2019 take 1 tablet by mouth once daily Norgestimate-Ethinyl Estradiol (Previfem) 0.25-35 mg-mcg tablet Discontinued 1 TABLET PO daily November 22, 2018 3:35pm July 08, 2019 1:35pm Start: 04-30-2018 End: 11-22-2018 Norgestimate-Ethinyl Estradi ol (Previfem) 0.25-35 mg-mcg tablet Discontinued 1 {tbl} PO daily 13 12April 30, 2018 12:00am November 22, 2018 4:35pm Start: 04-30-2018 End: 11-22-2018 Norgestimate-Ethinyl Estradi ol (Previfem) 0.25-35 mg-mcg tablet Discontinued 1 {tbl} PO daily April 30, 2018 12:00am November 22, 2018 4:35pm Start: 04-30-2018 End: 11-22-2018 take 1 tablet by mouth once daily Norgestimate-Ethinyl Estradiol (Previfem) 0.25-35 mg-mcg tablet Discontinued 1 TABLET PO daily April 30, 2018 12:00am November 22, 2018 4:35pm Start: 04-30-2018 End: 11-22-2018 take 1 tablet by mouth once daily Norgestimate-Ethinyl Estradiol (Previfem) 0.25-35 mg-mcg tablet Discontinued 1 TABLET PO daily April 29, 2018 11:00pm November 22, 2018 3:35pm famotidine 10 mg oral tablet (2 sources) Histamine-2 Receptor Antagonist End: 02-28-2022 take 1 tablet by mouth once daily as needed famotidine (PEPCID AC) 10 mg tablet Take 10 mg by mouth once daily as needed. 0 02/28/2022 Discontinued (Course of therapy completed) Comment on above: Take 10 mg by mouth once daily as needed. ferrous sulfate 325 mg oral tablet (13 sources) Start: 11-25-2019 End: 03-26-2020 take 1 tablet by mouth once daily Ferrous Sulfate (Iron) 325 mg (65 mg iron) tablet Discontinued 325 mg PO DAILY November 25, 2019 12:00am March 26, 2020 9:50am anemia fluticasone propionate 0.05 mg/actuat metered dose nasal spray (12 sources) Corticosteroid Start: 09-16-2022 End: 12-12-2024 take 50 ug nasal route once daily Fluticasone Propionate (Flonase Allergy Relief) 50 mcg/actuation spray,suspension Discontinued 1 NMA INTRANASAL DAILY September 16, 2022 1:00am December 12, 2024 1:49pm administer into each nostril Start: 09-16-2022 take 1 spray(s) nasa l route once daily Fluticasone Propionate (Flonase Allergy Relief) 50 mcg/actuation spray,suspension Active 1 SPRAY INTRANASAL DAILY September 16, 2022 1:00am administer into each nostril ibuprofen 600 mg oral tablet (13 sources) Nonsteroidal Anti-inflammatory Drug Start: 02-11-2020 End: 03-26-2020 take 1 tablet by mouth every six hours as needed for pain Ibuprofen 600 MG tablet Discontinued 600 mg PO EVERY 6 HOURS NEEDED as needed for Pain February 11, 2020 12:00am March 26, 2020 9:50am levonorgestrel 0.168314 mg/hr intrauterine system (19 sources) Progestin, Progestin-containing Intrauterine Device Start: 08-09-2021 End: 12-12-2024 Levonorgestrel (Liletta) 20.1 mcg/24 hrs (6 yrs) 52 mg intrauterine device Discontinued 1 NMA INTRA-UTER ONCE August 09, 2021 1:00am December 12, 2024 1:49pm as a single dose Start: 08-09-2021 levonorgestrel (LILETTA) 20.4 mcg/24 hr (8 yrs) 52 mg IUD one time only. 08/09/2021 Active levonorgestrel ( MIRENA INTRAUTERINE) by INTRAUTERINE route. Active levonorgestrel ( MIRENA INTRAUTERINE) by INTRAUTERINE route. 0 Active Comment on above: by INTRAUTERINE rout e. magnesium citrate 58.2 mg/ml oral solution (9 sources) Start: End: take 1 mL by mouth once Magnesium Citrate solution Discontinued 300 mL PO ONCE 296 0 April 07, 2025 4:17pm April 23, 2025 12:58pm as a single dose Start: 01-25-2025 End: 04-07-2025 take 1 mL by mouth once Magnesium Citrate solution D iscontinued 300 mL PO ONCE 296 0 January 25, 2025 12:00am April 07, 2025 4:18pm as a single dose Start: 01-25-2025 take 1 mL by mouth once Magnes ium Citrate solution Active 300 mL PO ONCE 296 0 January 25, 2025 12:00am as a single dose Start: 01-25-2025 take 1 mL by mouth once Magnes ium Citrate solution Active 300 mL PO ONCE 296 January 25, 2025 12:00am as a single dose metoclopramide 5 mg oral tablet (3 sources) Dopamine-2 Receptor Antagonist Start: 04-10-2025 End: 04-23-2025 take 1 tablet by mouth every eight hours as needed for nausea and vomiting Metoclopramide Hcl (Reglan) 5 mg tablet Discontinued 5 mg PO Q8H as needed for nausea and vomiting 10 0 April 10, 2025 11:19am April 23, 2025 12:58pm metroNIDAZOLE 0.0075 mg/mg vaginal gel (13 sources) Nitroimidazole Antimicrobial Start: 10-07-2019 End: 11-04-2019 Metronidazole 0.75 % gel Discontinued 1 NMA VAGINAL .COMPLEX 70 0 October 07, 2019 1:00am November 04, 2019 10:50am 1 appful VAGINAL once a week; mupirocin 0.02 mg/mg topical ointment (1 source) RNA Synthetase Inhibitor Antibacterial Start: 05-31-2019 End: 02-24-2022 mupirocin (BACTROBAN) 2 % ointment Indications: Finger injury, left, initial encounter Apply 1 application to affected area three times daily. 22 g 0 05/31/2019 02/24/2022 Discontinued (Course of therapy completed) Comment on above: Apply 1 application to affected area three times daily. naproxen 500 mg oral tablet (10 sources) Nonsteroidal Anti-inflammatory Drug Start: 09-06-2023 End: 08-19-2024 take 1 tablet by mouth every twelve hours at mealtime Naproxen 500 mg tablet Discontinued 500 mg PO Q12H 30 2 September 06, 2023 1:00am August 19, 2024 10:44am administer with food or milk pantoprazole 40 mg delayed release oral tablet (7 sources) Proton Pump Inhibitor Start: 12-17-2024 End: 04-23-2025 take 1 tablet by mouth once daily 30 minutes before breakfast Pantoprazole 40 mg tablet,delayed release (DR/EC) Discontinued 40 mg PO daily 90 December 17, 2024 12:00am April 23, 2025 12:57pm take 30 minutes before breakfast in the morning 105/Iron/Folic AC/Dha (13 sources) Start: 02-02-2020 End: 02-03-2020 105/Iron/Folic AC/Dha Discontinued 1 {tbl} PO DAILY February 02, 2020 12:00am February 03, 2020 1:58pm Start: 02-02-2020 End: 02-03-2020 take 1 tablet by mouth once daily before mealtime 105/Iron/Folic AC/Dha Discontinued 1 TABLET PO DAILY February 02, 2020 12:00am February 03, 2020 1:58pm Start: 02-02-2020 End: 02-03-2020 take 1 tablet by mouth once daily before mealtime 105/Iron/Folic AC/Dha Discontinued 1 TABLET PO DAILY February 01, 2020 11:00pm February 03, 2020 12:58pm Vit,[id number]-Huai-Mgfbc (5 sources) Start: 02-08-2020 End: 03-26-2020 take 1 tablet by mouth once daily Vit,[id number]-Rgsh-Jfhwa Discontinued 1 TABLET PO DAILY February 08, 2020 12:00am March 26, 2020 9:50am Start: 02-08-2020 End: 03-26-2020 take 1 tablet by mouth once daily Vit,[id number]-Itkln Discontinued 1 TABLET PO DAILY February 07, 2020 11:00pm March 26, 2020 8:50am Vit,[id number]-Auns-Navhk 1 TABLET tablet (8 sources) Start: 02-08-2020 End: 03-26-2020 take 1 tablet by mouth once daily Vit,Ckws94-Fbsp-Yyqat 1 TABLET tablet Discontinued 1 {tbl} PO DAILY February 08, 2020 12:00am March 26, 2020 9:50am Start: 02-08-2020 End: 03-26-2020 take 1 tablet by mouth once daily Vit,Qvif78-Hkvp-Owfnc 1 TABLET tablet Discontinued 1 {tbl} PO DAILY February 08, 2020 12:00am March 26, 2020 9:50am prochlorperazine 10 mg oral tablet (6 sources) Phenothiazine Start: 01-25-2025 End: 04-23-2025 take 1 tablet by mouth three times daily as needed for nausea and vomiting Prochlorperazine Maleate 10 mg tablet Discontinued 10 mg PO THREE TIMES A DAY as needed for nausea and vomiting 17 10January 25, 2025 12:00am April 23, 2025 12:57pm Problems Active Problems Problem Classification Problem Date Documented Da te Episodic/Chronic Abdominal pain (20 sources) Right upper quadrant pain; Translations: [Right upper quadrant pain] Onset: 07-11-2024 Episodic Biliary tract disease (5 sources) Gallbladder problem; Translations: [Disease of gallbladder, unspecified] 04-21-2025 Episodic Contraceptive and procreative management (2 sources) Encounter for routine checking of intrauterine contraceptive device; Translations: [Surveillance of intrauterine contraceptive device] 08-15-2023 Episodic Fluid and electrolyte disorders (3 sources) Dehydration; Translations: [Dehydration] 04-10-2025 Episodic Gastrointestinal hemorrhage (1 source) Hematemesis; Translations: [Hematemesis] Episodic Headache; including migraine (16 sources) Headache; Translations: [Headache] Episodic Nausea and vomiting (20 sources) Nausea and vomiting; Translations: [Nausea with vomiting, unspecified] Onset: 12-17-2024 Episodic Other gastrointestinal disorders (20 sources) Diarrhea; Translations: [Diarrhea, unspecified] 12-17-2024 Episodic Other gastrointestinal disorders (1 source) Diarrhea, unspecified; Translations: [Diarrhea, unspecified] Onset: 02-17-2025 Episodic Other nutritional; endocrine; and metabolic disorders (1 source) Unexplained weight loss ; Translations: [Abnormal weight loss] Episodic Other skin disorders (13 sources) Acne; Translations: [Acne, unspecified] 11-24-2019 Episodic Other skin disorders (1 source) Loss of hair; Translations: [Nonscarring hair loss, unspecified] Episodic Other upper respiratory infections (12 sources) Sinusitis; Translations: [Chronic sinusitis, unspecified] 09-24-2022 Chronic Ovarian cyst (11 sources) Cyst of ovary; Translations: [Unspecified ovarian cyst, left side] Onset: 08-19-2024 01-09-2024 Episodic Comment on above: 3cm left complex-sma ller in size rpt US. Pain has resolved. Viral infection (13 sources) Viral disease; Translations: [Viral infection, unspecified] 08-06-2020 Episodic Past or Other Problems Problem Classification Problem Date Documented Date Episodic/Chronic Immunizations and screening for infectious disease (5 sources) Contact with and (suspected) exposure to infections with a predominantly sexual mode of transmission; Translations: [Contact with or exposure to venereal diseases] Onset: 08-19-2024 08-15-2023 Episodic Results Test Name Value Interpretation Reference Range Facility Urine testOrdered By: Francois Camacho on 04-30-2025 HCG ( test) Ql (U) Negative [facility] Comment on above: Very dilute urine sp ecimens, as indicated by a low specificgravity, may not contain teleservices representative levels of hCG. If is still suspected, a first morning urinespecimen should be collected 48 hours later and tested. Surgery Visit Reporton 04-21 Surgery Visit Report [facility] [address] [place] [address] OFFICE VISIT Date of Service: 04/21/25 MR#: [id number] Acct: [id number] Name: KISHORERUBENDakotaPETERSONCharles WHALEY Rep #: [id number] : 2000 Provider: Dr. Dmitry loo MD Age/Sex: 25/F Location: [facility] Status: Signed Intake Vital Signs 12/17/24 09:42 04/10/25 09:03 04/21/25 09:53 Height 5 ft 2 in 5 ft 2 in 5 ft 2 in Weight: 129 lb BMI 23.6 BP 116/75 Blood Pressure Location Rt brachial Position Sitting Respiration 18 Pulse 77 Pulse Source Monitor Temp 97.2 F L Temp Source Temporal Pulse Oximetry (%) 99 Oxygen Delivery Method room air Intake Visit Reasons: GALLBLADDER Chief Complaint: galbladder Accompanied by: Mother Is patient in pain?: Yes Allergies latex Allergy (Verified 04/10/25 09:03) Rash Medications ???Medication ???Instructions ???Recorded ???Confirmed ???Type pantoprazole 40 mg tablet,delayed 40 mg PO QDAY #90 tabs 12/17/24 0 04/21/25 Rx release docusate sodium 100 mg capsule 100 mg PO BID 7 days #14 caps 01/1604/21/25 Rx (Colace) polyethylene glycol 3350 17 4 g PO QDAY #238 grams 01/25/25 Rx gram/dose oral powder (Miralax) prochlorperazine maleate 10 mg 10 mg PO TID PRN nausea and 04/21/25 Rx tablet vomiting #30 tabs linaclotide 145 mcg capsule 145 mcg PO QAM #30 caps 04/07/25 0 04/21/25 Rx (Linzess) magnesium citrate 300 ml PO ONCE #296 mL 04/07/25 Rx metoclopramide HCl 5 mg tablet 5 mg PO Q8H PRN nausea and 5 04/21/25 Rx (Reglan) vomiting #10 tabs ondansetron 4 mg disintegrating 4 mg PO Q8H PRN PRN Nausea #20 tab s 04/10/25 04/21/25 Rx tablet PFSH Medical History (Updated 04/21/25 @ 10:10 by Latoya Ureña) Biliary dyskinesia Gallbladder problem Abdominal pain Generalized headaches Gastrointestinal problem UTI (urinary tract infection) Surgical History H/O section Family History Grandfather Heart disease Unknown Thyroid cancer Other Anxiety Bone cancer Cancer Liver disease Pancreatic cancer Social History (Updated 04/21/25 @ 09:55 by Leticia Malone LPN) current occupational status: employed current occupation: [employer] Smoking Status: Current every day smoker tobacco type: e-cigarettes alcohol intake: never substance use type: marijuana caffeine: No what type of physical activity do you participate in: walking frequency: 5-6 times per week seatbelt use: always HPI HPI HPI: The patient is a 25-year-old female who is being seen today for multiple GI issues and complaints. As sounds as though she certainly has problems with chronic constipation for which she was recently placed on Linzess. Her constipation does seem to cause lower abdominal cramping discomfort. She does however also have epigastric and right upper quadrant pain along with nausea and vomiting. She states that fatty and greasy foods do tend to exacerbate the symptoms. She has undergone an ultrasound of the right upper quadrant which did not show any stones however she had a HIDA scan performed within the past few months then indicated an ejection fraction of about 12% consistent with biliary dyskinesia. She presents today for an opinion regarding possible cholecystectomy. ROS General General: Yes fatigue; No weight change, appetite, colon cancer, breast cancer or weakness HEENT HEENT: No difficulty swallowing, eye injury, eye surgery, swollen glands or hoarseness Endo Endocrine: No thyroid disease, diabetes mellitus, thyroid cancer, Hair loss, heat intolerance or cold intolerance Skin Skin: No rash or changing moles Musc Musculoskeletal: No back problems, arthritis, rheumatoid arthritis, gout or joint pain Cardio Cardiovascular: No murmur, pacemaker, heart disease, atrial fibrillation, high blood pressure, heart attack, heart stent, palpitations, shortness of breath with exertion or chest pain Psych Psychiatric: No depression, anxiety or hearing voices Resp Respiratory: No shortness of breath, No sleep apnea, No cough, No COPD, No asthma, No emphysema and No wheezing Gastro Gastrointestinal: Yes abdominal pain, Yes nausea or vomiting, Yes diarrhea, Yes constipation, Yes blood in stool, Yes acid reflux, No hemorrhoids, No ulcers, Yes gallbladder problem and No black,tarry stools Ian Hematologic: No blood thinners, No blood disorders, No bleeding, No anemia and No blood clots Neuro Neurologic: No numbness, No tingling and No weakness Exam Const General: cooperative, healthy appearing, comfortable and no acute distress [facility] Head: normal to inspection, normoc (more content not included)... Normal [facility] [employer] Decub and/or Erecton 04-10-2025 [employer] Decub and/or Erect [facility] [facility] Imaging Services [address] [place] [address] Abd Inc Decub and/or Erect MR#: [id number] Acct: [id number] Name: DUNG HULL Rep #: [id number] : 2000 F 25 From: Andrez Kessler MD PCP: Care Physician,No Primary Status: REG ER Study: Abd Inc Decub and/or Erect Date of Exam: 04/10 Exam# [id number] Ordering Dr: Anya Estrada DO PROCEDURE: ABD INC DECUB AND/OR ERECT 04/10/2025 REASON FOR EXAM: ABD PAIN TECHNIQUE: ABD INC DECUB AND/OR ERECT COMPARISON: February 20, 2025 CT FINDINGS: There is a nonobstructive bowel gas pattern. There is no air-fluid levels or distended small bowel loops. Gas and stool is noted in the descending colon and rectum. An IUD is present in the mid pelvis. There is no acute bony abnormality. RAD/Abd Inc Decub and/or Erect IMPRESSION: Nonobstructive bowel gas pattern. Reading Location: [facility] CC: Dr. Anya Estrada DO; No Primary Care Physician Sound Printer: Signed Normal [facility] Absolute lymphocyte countOrd ered By: Anya Estrada on 04-10-2025 Lymphocytes Auto (Unsp spec) [#/Vol] 0.90 10*3/uL 0.83-4.51 [facility] Absolute neutrophil countOrd ered By: Anya Estrada on 04-10-2025 Neutrophils (Bld) [#/Vol] 2.5 10*3/uL 2.0-7.7 [facility] Anion gap in Serum or Plasma Ordered By: Anya Estrada on 04-10-2025 Anion gap [Moles/Vol] 12 mmol/L 5-15 [facility] Automated lymphocyte count a s percentage of total leukocytesOrdered By: Anya Estrada on 04-10-2025 Lymphocytes/100 WBC Auto (Unsp spec) 20.3 % 19-41 [facility] BUN/creatinine ratioOrdered By: Anya Estrada on 04-10-2025 Urea nitrogen/Creatinine [Mass ratio] 8.5 mg/mg Low 10-20 [facility] Basic Metabolic Profile (BMP )on 04-10-2025 BUN/CRE 8.5 RATIO Low 10- [facility] Comment on above: Performed By: #### L 100.0100, L501.2450, L500.3400, L500.2500 ####[facility] [address] [place], [address] Calcium [Mass/Vol] 9.0 mg/dL Normal 7.6-11.0 [facility] Comment on above: Performed By: #### L 100.0100, L501.2450, L500.3400, L500.2500 ####[facility] [address] [place], [address] Chloride [Moles/Vol] 106 mmol/L Normal 98-108 [facility] Comment on above: Performed By: #### L 100.0100, L501.2450, L500.3400, L500.2500 ####[facility] [address] [place], [address] CO2 [Moles/Vol] 21.2 mmol/L Normal 21.0-32.0 [facility] Comment on above: Performed By: #### L 100.0100, L501.2450, L500.3400, L500.2500 ####[facility] [address] [place], [address] Creatinine [Mass/Vol] 0.78 mg/dL Normal 0.70-1.20 [facility] Comment on above: Performed By: #### L 100.0100, L501.2450, L500.3400, L500.2500 ####[facility] [address] [place], [address] ECRCL 88.72 ml/min Normal 50-250 [facility] Comment on above: Performed By: #### L 100.0100, L501.2450, L500.3400, L500.2500 ####[facility] [address] [place], [address] GAP 12 Normal 5-15 [facility] Comment on above: Performed By: #### L 100.0100, L501.2450, L500.3400, L500.2500 ####[facility] [address] [place], [address] GFR/1.73 sq M.predicted among non-blacks MDRD (S/P/Bld) [Vol rate/Area] 109 mL/min/{1.73_m2} Normal >60 [facility] Comment on above: Result Comment: mL/m in/1.73m2 CKD-EPI Creatinine Equation (2020) Performed By: #### L 100.0100, L501.2450, L500.3400, L500.2500 ####[facility] [address] [place], [address] Glucose [Mass/Vol] 99 mg/dL Normal 70-99 [facility] Comment on above: Performed By: #### L 100.0100, L501.2450, L500.3400, L500.2500 ####[facility] [address] [place], [address] Potassium [Moles/Vol] 3.6 mmol/L Normal 3.3-5.1 [facility] Comment on above: Performed By: #### L 100.0100, L501.2450, L500.3400, L500.2500 ####[facility] [address] [place], [address] Sodium [Moles/Vol] 139 mmol/L Normal 133-145 [facility] Comment on above: Performed By: #### L 100.0100, L501.2450, L500.3400, L500.2500 ####[facility] [address] [place], [address] Urea nitrogen [Mass/Vol] 7 mg/dL Normal 4-19 [facility] Comment on above: Performed By: #### L 100.0100, L501.2450, L500.3400, L500.2500 ####[facility] [address] [place], [address] Basophil percentageOrdered B y: Anya Estrada on 04-10-2025 Basophils/100 WBC (Bld) 0.5 % 0-1 [facility] Bilirubin Test strip Ql (U)O rdered By: Anya Estrada on 04-10-2025 Bilirubin Ql (U) Negative Negative [facility] Bilirubin directOrdered By: Anya Estrada on 04-10-2025 Bilirubin.direct [Mass/Vol] 0.17 mg/dL 0.00-0.30 [facility] Bilirubin, totalOrdered By: Anya Estrada on 04-10-2025 Bilirubin [Mass/Vol] 0.41 mg/dL 0.00-1.30 [facility] CBC W/Diff, Automatedon - Absolute Lymph 0.90 X10 3/uL Normal 0.83-4.51 [facility] Comment on above: Performed By: #### L 100.0100, L501.2450, L500.3400, L500.2500 #### [facility] [address] [place], [address] Absolute Neut 2.5 X10 3/uL Normal 2.0-7.7 [facility] Comment on above: Performed By: #### L 100.0100, L501.2450, L500.3400, L500.2500 #### [facility] [address] [place], [address] Basophils/100 WBC (Bld) 0.5 % Normal 0-1 [facility] Comment on above: Performed By: #### L 100.0100, L501.2450, L500.3400, L500.2500 #### [facility] [address] [place], [address] Eosinophils/100 WBC (Bld) 0.2 % Normal 0-5 [facility] Comment on above: Performed By: #### L 100.0100, L501.2450, L500.3400, L500.2500 #### [facility] [address] [place], [address] Erythrocyte distribution width (RBC) [Ratio] 12.6 % Normal 11.6-14.6 [facility] Comment on above: Performed By: #### L 100.0100, L501.2450, L500.3400, L500.2500 #### [facility] [address] [place], [address] Hematocrit (Bld) [Volume fraction] 37.7 % Normal 37-47 [facility] Comment on above: Performed By: #### L 100.0100, L501.2450, L500.3400, L500.2500 #### [facility] [address] [place], [address] Hemoglobin (Bld) [Mass/Vol] 12.6 g/dL Normal 12.0-15.0 [facility] Comment on above: Performed By: #### L 100.0100, L501.2450, L500.3400, L500.2500 #### [facility] [address] [place], [address] IG% 0.200 Normal 0.0-0.9 [facility] Comment on above: Result Comment: IG% - Immature Granulocytes (promyelocytes, myelocytes and metamyelocytes) > 1% indicates that a LEFT SHIFT is Present. Performed By: #### L 100.0100, L501.2450, L500.3400, L500.2500 #### [facility] [address] [place], [address] Lymphocytes/100 WBC (Bld) 20.3 % Normal 19-41 [facility] Comment on above: Performed By: #### L 100.0100, L501.2450, L500.3400, L500.2500 #### [facility] [address] [place], [address] MCH (RBC) [Entitic mass] 29.8 pg Normal 27.0-32.0 [facility] Comment on above: Performed By: #### L 100.0100, L501.2450, L500.3400, L500.2500 #### [facility] [address] [place], [address] MCHC (RBC) [Mass/Vol] 33.4 g/dL Normal 32-36 [facility] Comment on above: Performed By: #### L 100.0100, L501.2450, L500.3400, L500.2500 #### [facility] [address] [place], [address] MCV (RBC) [Entitic vol] 89.1 fL Normal 81-99 [facility] Comment on above: Performed By: #### L 100.0100, L501.2450, L500.3400, L500.2500 #### [facility] [address] [place], [address] Monocytes/100 WBC (Bld) 23.4 % High 0-10 [facility] Comment on above: Performed By: #### L 100.0100, L501.2450, L500.3400, L500.2500 #### [facility] [address] [place], [address] Neutrophils/100 WBC (Bld) 55.4 % Normal 47-70 [facility] Comment on above: Performed By: #### L 100.0100, L501.2450, L500.3400, L500.2500 #### [facility] [address] [place], [address] Nucleated RBC (Bld) [#/Vol] 0 10*3/uL Normal 0-5 [facility] Comment on above: Performed By: #### L 100.0100, L501.2450, L500.3400, L500.2500 #### [facility] [address] [place], [address] Platelet mean volume (Bld) [Entitic vol] 11.4 fL Normal 6.2-12.0 [facility] Comment on above: Performed By: #### L 100.0100, L501.2450, L500.3400, L500.2500 #### [facility] [address] [place], [address] Platelets (Bld) [#/Vol] 182 10*3/uL Normal 150-450 [facility] Comment on above: Performed By: #### L 100.0100, L501.2450, L500.3400, L500.2500 #### [facility] [address] [place], [address] RBC (Bld) [#/Vol] 4.23 10*6/uL Normal 4.2-5.4 [facility] Comment on above: Performed By: #### L 100.0100, L501.2450, L500.3400, L500.2500 #### [facility] [address] [place], [address] RDW SD 41.1 fl Normal 35.1-43.9 [facility] Comment on above: Performed By: #### L 100.0100, L501.2450, L500.3400, L500.2500 #### [facility] [address] [place], [address] WBC (Bld) [#/Vol] 4.4 10*3/uL Normal 4.4-11.0 [facility] Comment on above: Performed By: #### L 100.0100, L501.2450, L500.3400, L500.2500 #### [facility] [address] [place], [address] Carbon dioxide, total [Moles /volume] in Central venous bloodOrdered By: Anya Estrada on 04-10-2025 CO2 [Moles/Vol] 21.2 mmol/L 21.0-32.0 [facility] Chloride assayOrdered By: Heriberto Estrada on 04-10-2025 Chloride [Moles/Vol] 106 mmol/L 98-108 [facility] Emergency Department Summary on 04-10-2025 Emergency Department Summary [facility] Medical Records Department [address] [address] Emergency Department Summary 04/10/25 MR#: [id number] Acct: [id number] Name: DUNG HULL Rep #: [id number] : 2000 25 From: Anya Estrada DO PCP: Care Physician,No Primary Status:DEP ER Location: ED HPI HPI - GI History of Present Illness Chief Complaint: Abd Pain Informant: patient Narrative Narrative: Patient is a 25-year-old female reports ongoing issues with abdominal pain since November of this year presenting with abdominal pain, nausea and vomiting yesterday as well as headache today. Patient states yesterday she had to leave work early because she was feeling nauseous. She developed diffuse pain in her abdomen and then had a couple episodes of vomiting. Is mostly yellow and clear. She has some associated chills and felt cold. She developed a throbbing headache. She took Tylenol with no relief of her headache. She was able to eat some chicken and soup later in the evening. She notes that she had pale bowel movements yesterday and the day before. She also notes her urine has been darker. She did report some light sensitivity yesterday. Because of the severity and continued headache this morning she came in for further evaluation. She notes that when she was vomiting today she did have a slight amount of pink in her vomit as well. She states that she is leaving for vacation to [place] on Monday (in 2 days) and I once make sure everything is okay. She has appointment to see Dr. Nunn for her gallbladder on April 21. She also has previously seen Dr. Maynard. She was just started on Linzess and just picked it up today and took her first dose. 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 Maynard told her she must be 42 before they can do a procedure for it. GI note from 2025 reviewed???patient had gallbladder ultrasound on 12/12/2024 which was largely negative. HIDA scan on 01/10/2025 was abnormal at 12%. Abdomen CT shows borderline narrowing of the aortomesenteric angle all which can be seen in SMA syndrome. On 2025 did have some improvement with a course of magnesium citrate. Per GI note lower suspicion for superior mesenteric artery syndrome and higher suspicion for IBS. [facility] Medical History Generalized headaches Gastrointestinal problem UTI (urinary tract infection) Home Medications ???Medication ???Instructions ???Recorded ???Last Taken ???Type pantoprazole 40 mg tablet,delayed 40 mg PO QDAY #90 tabs 12/17/24 U nknown Rx release docusate sodium 100 mg capsule 100 mg PO BID 7 days #14 caps 01/16 Unknown Rx (Colace) polyethylene glycol 3350 17 4 g PO QDAY #238 grams 01/25/25 Un known Rx gram/dose oral powder (Miralax) prochlorperazine maleate 10 mg 10 mg PO TID PRN nausea and Unknown Rx tablet vomiting #30 tabs linaclotide 145 mcg capsule 145 mcg PO QAM #30 caps 04/07/25 U nknown Rx (Linzess) magnesium citrate 300 ml PO ONCE #296 mL 04/07/25 Un known Rx metoclopramide HCl 5 mg tablet 5 mg PO Q8H PRN nausea and 5 Unknown Rx (Reglan) vomiting #10 tabs ondansetron 4 mg disintegrating 4 mg PO Q8H PRN PRN Nausea #20 tab s 04/10/25 Unknown Rx tablet Allergy/AdvReac Type Severity Reaction Status Date / Time latex Allergy Rash Verified 04/10/25 09:03 Family History Grandfather Heart disease Unknown Thyroid cancer Other Anxiety Bone cancer Cancer Liver disease Pancreatic cancer Surgical History H/O section Social History current occupational status: employed current occupation: [employer] Smoking Status: Current every day smoker tobacco type: e-cigarettes alcohol intake: never substance use type: does not use caffeine: No what type of physical activity do you participate in: walking frequency: 5-6 times per week seatbelt use: always ROS ROS ED Constitutional Constitutional ED: Denies chills or fever(s) Cardiovascular Cardiovascular: Denies chest pain Respiratory/Chest Respiratory/Chest: Denies cough or dyspnea Gastrointestinal Gastrointestinal: Reports abdominal pain, nausea and vomiting; Denies constipation or diarrhea Musculoskeletal Musculoskeletal: Denies arthralgias or myalgias Integumentary Denies rash Neurologic Neurologic: Reports headache(s); Denies paresthesias or weakness Hematologic/Lymphatic Hematologic/Lymphatic: Denies easy bleeding or easy bruising EXAM Physical Exam Const Vital Signs: 04/10/25 09:03 04/10/25 11:03 04/10/25 11:32 Temperature 99.1 F 99.1 F Temperature S (more content not included)... Normal [facility] Eosinophil percentageOrdered By: Anya Estrada on 04-10-2025 Eosinophils/100 WBC (Bld) 0.2 % 0-5 [facility] Erythrocyte distribution wid th ratioOrdered By: Anya Estrada on 04-10-2025 Erythrocyte distribution width (RBC) [Ratio] 12.6 % 11.6-14.6 [facility] Erythrocyte distribution wid th standard deviationOrdered By: Anya Estrada on 04-10-2025 Erythrocyte distribution width (RBC) [Ratio] 41.1 fl 35.1-43.9 [facility] Glomerular filtration rate ( GFR) estimation/1.73 sq m using serum, plasma, or whole bOrdered By: Anya Estrada on 04-10-2025 GFR/1.73 sq M.predicted among non-blacks MDRD (S/P/Bld) [Vol rate/Area] 109 mL/min/{1.73_m2} >60 [facility] Comment on above: mL/min/1.73m2 CKD-EP I Creatinine Equation (2020) Hematocrit Auto (Bld) [Volum e fraction]Ordered By: Anya Estrada on 04-10-2025 Hematocrit (Bld) [Volume fraction] 37.7 % 37-47 [facility] Hemoglobin measurementOrdere d By: Anya Estrada on 04-10-2025 Hemoglobin (Bld) [Mass/Vol] 12.6 g/dL 12.0-15.0 [facility] Immature granulocytes/100 WB C Auto (Bld)Ordered By: Anya Estrada on 04-10-2025 Immature granulocytes/100 WBC (Bld) 0.200 % 0.0-0.9 [facility] Comment on above: IG% - Immature Granu locytes (promyelocytes, myelocytes and metamyelocytes) > 1% indicates that a LEFT SHIFT is Present. Ketones Test strip Ql (U)Ord ered By: Anya Estrada on 04-10-2025 Ketones Ql (U) 15 mg/dl High Negative [facility] Laboratory - Chemistry and C hemistry - challengeOrdered By: Anya Estrada on 04-10-2025 AST [Catalytic activity/Vol] 26 U/L <32 [facility] Lipaseon 04-10-2025 Lipase [Catalytic activity/Vol] 22 U/L Normal 13-75 [facility] Comment on above: Result Comment: Judi peterson note: LIPASE revised reference range effective 22. New Lipase methodology. Expected to produce lower values than the previous assay method. NEW Reference Range: 13 - 75 U/L Performed By: #### L 100.0100, L501.2450, L500.3400, L500.2500 ####[facility] [address] [place], [address] Lipase measurementOrdered By : Anya Estrada on 04-10-2025 Lipase [Catalytic activity/Vol] 22 U/L 13-75 [facility] Comment on above: Please note:LIPASE r evised reference range effective 22. New Lipase methodology. Expected to produce lower values than the previous assay method. NEW Reference Range: 13 - 75 U/L Liver Profileon 04-10-2025 Albumin [Mass/Vol] 4.6 g/dL Normal 3.5-5.0 [facility] Comment on above: Performed By: #### L 100.0100, L501.2450, L500.3400, L500.2500 ####[facility] [address] [place], [address] ALK PHOS 51 U/L Normal 35-104 [facility] Comment on above: Performed By: #### L 100.0100, L501.2450, L500.3400, L500.2500 ####[facility] [address] [place], [address] ALT [Catalytic activity/Vol] 16 U/L Normal <=34 [facility] Comment on above: Performed By: #### L 100.0100, L501.2450, L500.3400, L500.2500 ####[facility] [address] [place], [address] AST [Catalytic activity/Vol] 26 U/L Normal <=31 [facility] Comment on above: Performed By: #### L 100.0100, L501.2450, L500.3400, L500.2500 ####[facility] [address] [place], [address] Bilirubin [Mass/Vol] 0.41 mg/dL Normal 0.00-1.30 [facility] Comment on above: Performed By: #### L 100.0100, L501.2450, L500.3400, L500.2500 ####[facility] [address] [place], [address] Bilirubin.direct [Mass/Vol] 0.17 mg/dL Normal 0.00-0.30 [facility] Comment on above: Performed By: #### L 100.0100, L501.2450, L500.3400, L500.2500 ####[facility] [address] [place], [address] Globulin (S) [Mass/Vol] 2.5 g/dL Normal 2.2-4.2 [facility] Comment on above: Performed By: #### L 100.0100, L501.2450, L500.3400, L500.2500 ####[facility] [address] [place], [address] T PROT 7.0 g/dL Normal 5.9-8.4 [facility] Comment on above: Performed By: #### L 100.0100, L501.2450, L500.3400, L500.2500 ####[facility] [address] [place], [address] MCV (mean corpuscular volume ) determinationOrdered By: Anya Estrada on 04-10-2025 MCV (RBC) [Entitic vol] 89.1 fL 81-99 [facility] Mean corpuscular hemoglobin (MCH) determinationOrdered By: Anya Estrada on 04-10-2025 MCH (RBC) [Entitic mass] 29.8 pg 27.0-32.0 [facility] Mean corpuscular hemoglobin concentration (MCHC) determinationOrdered By: Anya Estrada on 04-10-2025 MCHC (RBC) [Mass/Vol] 33.4 g/dL 32-36 [facility] Mean platelet volume determi nationOrdered By: Anya Estrada on 04-10-2025 Platelet mean volume (Bld) [Entitic vol] 11.4 fL 6.2-12.0 [facility] Microscopic analysis of urin e for red blood cells (RBC)Ordered By: Anya Estrada on 04-10-2025 Microscopic analysis of urine for red blood cells (RBC) 0 SEEN /hpf 0-5 [facility] Monocyte percentageOrdered B y: Anya Estrada on 04-10-2025 Monocytes/100 WBC (Bld) 23.4 % High 0-10 [facility] Mucus LM Ql (Urine sed)Order ed By: Anya Estrada on 04-10-2025 Mucus Ql (Urine sed) 2+ /hpf [facility] Neutrophil percentageOrdered By: Anya Estrada on 04-10-2025 Neutrophils/100 WBC (Bld) 55.4 % 47-70 [facility] Nitrite Test strip Ql (U)Ord ered By: Anya Estrada on 04-10-2025 Nitrite Ql (U) Negative Negative [facility] Nucleated red blood cell per centageOrdered By: Anya Estrada on 04-10-2025 Nucleated RBC/100 WBC (Bld) [Ratio] 0 % 0-5 [facility] Platelet countOrdered By: Heriberto Estrada on 04-10-2025 Platelets (Bld) [#/Vol] 182 10*3/uL 150-450 [facility] Potassium measurement (mass/ volume)Ordered By: Anya Estrada on 04-10-2025 Potassium (Unsp spec) [Mass/Vol] 3.6 mmol/L 3.3-5.1 [facility] ,Urineon 04-10-2025 Beta HCG ( test) Ql (U) Negative Normal [facility] Comment on above: Result Comment: Very dilute urine specimens, as indicated by a low specific gravity, may not contain teleservices representative levels of hCG. If is still suspected, a first morning urine specimen should be collected 48 hours later and tested. Performed By: #### L 400.7600, L400.0001 #### [facility] [address] [place], [address] Protein Test strip Ql (U)Ord ered By: Anya Estrada on 04-10-2025 Protein Ql (U) 30 mg/dl High Negative [facility] RBC Auto (Bld) [#/Vol]Ordere d By: Anya Estrada on 04-10-2025 RBC (Bld) [#/Vol] 4.23 10*6/uL 4.2-5.4 [facility] Serum creatinine measurement (mass/volume)Ordered By: Anya Estrada on 04-10-2025 Creatinine [Mass/Vol] 0.78 mg/dL 0.70-1.20 [facility] Serum globulin measurementOr dered By: Anya Estrada on 04-10-2025 Globulin (S) [Mass/Vol] 2.5 g/dL 2.2-4.2 [facility] Serum glucose measurement (m ass/volume)Ordered By: Anya Estrada on 04-10-2025 Glucose [Mass/Vol] 99 mg/dL 70-99 [facility] Serum or plasma alanine eli otransferase (ALT) measurementOrdered By: Anya Estrada on 04-10-2025 ALT [Catalytic activity/Vol] 16 U/L <35 [facility] Serum or plasma albumin guicho urement (mass/volume)Ordered By: Anya Estrada on 04-10-2025 Albumin [Mass/Vol] 4.6 g/dL 3.5-5.0 [facility] Serum or plasma alkaline krishan sphatase measurementOrdered By: Anya Estrada on 04-10-2025 ALP [Catalytic activity/Vol] 51 U/L 35-104 [facility] Serum or plasma calcium guicho urement (mass/volume)Ordered By: Anya Estrada on 04-10-2025 Calcium [Mass/Vol] 9.0 mg/dL 7.6-11.0 [facility] Serum or plasma urea nitroge n measurement (mass/volume)Ordered By: Anya Estrada on 04-10-2025 Urea nitrogen [Mass/Vol] 7 mg/dL 4-19 [facility] Sodium levelOrdered By: Salina Estrada on 04-10-2025 Sodium [Moles/Vol] 139 mmol/L 133-145 [facility] Squamous epithelial cells de tection in urine sediment by light microscopyOrdered By: Anya Estrada on 04-10-2025 Epithelial cells.squamous LM Ql (Urine sed) 5-10 SEEN /hpf 5-10 [facility] Total proteinOrdered By: Susie Estrada on 04-10-2025 Protein [Mass/Vol] 7.0 g/dL 5.9-8.4 [facility] Urinalysis, Completeon 04-10 BACTERIA 2+ /hpf Normal None Seen [facility] Comment on above: Order Comment: CLEAN CATCH Performed By: #### L 400.7600, L400.0001 #### [facility] [address] [place], [address] EPI,SQUAMOUS 5-10 SEEN Normal 5-10 [facility] Comment on above: Order Comment: CLEAN CATCH Performed By: #### L 400.7600, L400.0001 #### [facility] [address] [place], [address] Mucus Ql (Urine sed) 2+ /hpf Normal [facility] Comment on above: Order Comment: CLEAN CATCH Performed By: #### L 400.7600, L400.0001 #### [facility] [address] [place], [address] RBC 0 SEEN Normal 0-5 [facility] Comment on above: Order Comment: CLEAN CATCH Performed By: #### L 400.7600, L400.0001 #### [facility] [address] [place], [address] WBC 0 SEEN Normal 0-5 [facility] Comment on above: Order Comment: CLEAN CATCH Performed By: #### L 400.7600, L400.0001 #### [facility] [address] [place], [address] Urine clarityOrdered By: Susie Estrada on 04-10-2025 Clarity (U) Sl. Cloudy Clear [facility] Urine color determinationOrd ered By: Anya Estrada on 04-10-2025 Color (U) Yellow Yellow [facility] Urine glucose detectionOrder ed By: Anya Estrada on 04-10-2025 Glucose Ql (U) Normal mg/dl Normal [facility] Urine leukocyte esterase det ection by dipstickOrdered By: Anya Estrada on 04-10-2025 Leukocyte esterase Test strip Ql (U) Negative Negative [facility] Urine pHOrdered By: Anya chaney on 04-10-2025 pH (U) 6.0 [pH] 5.0 - 8.0 [facility] Urine testOrdered By: Anya Estrada on 04-10-2025 HCG ( test) Ql (U) Negative [facility] Comment on above: Very dilute urine sp ecimens, as indicated by a low specificgravity, may not contain teleservices representative levels of hCG. If is still suspected, a first morning urinespecimen should be collected 48 hours later and tested. Urine sediment bacteria coun t by microscopy (number/high power field)Ordered By: Anya Estrada on 04-10-2025 Bacteria LM.HPF (Urine sed) [#/Area] 2 /[HPF] None Seen [facility] Urine specific gravity measu rementOrdered By: Anya Estrada on 04-10-2025 Specific gravity (U) [Rel density] 1.025 1.002-1.030 [facility] Urine urobilinogen measureme ntOrdered By: Anya Estrada on 04-10-2025 Urobilinogen Ql (U) Normal mg/dl Normal [facility] White blood cell (WBC) count Ordered By: Anya Estrada on 04-10-2025 WBC (Bld) [#/Vol] 4.4 10*3/uL 4.4-11.0 [facility] White blood cell countOrdere d By: Anya Estrada on 04-10-2025 White blood cell count 0 SEEN /hpf 0-5 [facility] Gastroenterology Visit Repor ton 2025 Gastroenterology Visit Report [facility]astroenterology [address] [place] [address] OFFICE VISIT Date of Service: 03/20/25 MR#: [id number] Acct: [id number] Name: GIODUNG WHALEY Rep #: [id number] : 2000 Provider: Marc Maynard DO Age/Sex: 25/F Location: [email or web address] Status: Signed Intake Vital Signs 12/17/24 09:42 Height 5 ft 2 in Intake Visit Reasons: DISCUSS OPTIONS Chief Complaint: abdominal pain Allergies latex Allergy (Verified 12/17/24 09:40) Rash Medications ???Medication ???Instructions ???Recorded ???Confirmed ???Type pantoprazole 40 mg tablet,delayed 40 mg PO QDAY #90 tabs 12/17/24 0 03/20/25 Rx release docusate sodium 100 mg capsule 100 mg PO BID 7 days #14 caps 01/1603/20/25 Rx (Colace) magnesium citrate 300 ml PO ONCE #296 mL 01/25/25 Rx polyethylene glycol 3350 17 4 g PO QDAY #238 grams 01/25/25 Rx gram/dose oral powder (Miralax) prochlorperazine maleate 10 mg 10 mg PO TID PRN nausea and 03/20/25 Rx tablet vomiting #30 tabs PFSH Medical History (Updated 12/17/24 @ 12:00 by Oneyda Bustamante NP-C) Generalized headaches Gastrointestinal problem UTI (urinary tract infection) Surgical History H/O section Family History (Updated 12/17/24 @ 09:49 by Pam Mcdowell) Grandfather Heart disease Unknown Thyroid cancer Other Anxiety Bone cancer Cancer Liver disease Pancreatic cancer Social History current occupational status: employed current occupation: [employer] Smoking Status: Current every day smoker tobacco type: e-cigarettes alcohol intake: never substance use type: does not use caffeine: No what type of physical activity do you participate in: walking frequency: 5-6 times per week seatbelt use: always HPI HPI Chief Complaint: abdominal pain Details: DUNG HULL, is a 25 F who presents to the office today for follow up. Gallbladder US 3..25 No acute abnormality. BGI established 4.1.25 HIDA 4..25 abnormal 12% OV 5.2.25 pt reports continued symptoms, diarrhea shortly after eating, nausea, and gas/bloating. Pt would like to discuss next steps for her care. 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 Correlate with symptoms. Otherwise unremarkable exam. OV 7.3.25 pt reports continued symptoms from previous visit. States that mag citrate was helpful and relieved pressure and pain on her abd. Reports she is here to discuss testing results and plan of care. ROS Const Constitutional: Positive for headache(s); No fatigue, fever(s) or weight change ENT ENT: Positive for headache(s); No difficulty swallowing Gastro GI: Positive for abdominal pain, bloating, constipation, diarrhea, excessive flatus, nausea/dyspepsia and vomiting; No belching, change in bowel habits, change in stool character, coffee ground emesis, cramping, heartburn, difficulty swallowing, feeling full early, incontinent of stools, Vomiting blood/hematemesis, Blood in stool, loose stools, Black,tarry stools, pain with swallowing or other Musc Musculoskeletal: No joint pain Skin Skin: No yellowing of the eye or itchy eyes Neuro Neurology: Positive for headache(s) Psych Psychiatric: Positive for anxiety and No depression Endo Endocrine: No fatigue or weight change Aller/Imm Allergy/Immunologic: No itchy eyes Ian/Lymp Hematologic/Lymphatic: Positive for easy bruising; No easy bleeding Exam Const General: cooperative, healthy appearing, comfortable, no acute distress, well developed and well groomed Orientation: alert, awake and oriented x3 HENMT Head: normal to inspection Eyes Eyelids: eyelids normal Sclera: sclerae normal Neck Neck: normal visual inspection Resp Effort Inspection: normal respiratory effort Auscultation: Bilateral: Clear to Auscultation Cardio Rate: regular rate Rhythm: regular rhythm GI Inspection: normal to inspection Palpation: soft Rectal Exam: deferred Assessment and Plan Assessment and Plan (1) Diarrhea: Status: Acute Qualifiers: Diarrhea type: unspecified type Qualified Code(s): R19.7 - Diarrhea, unspecified (2) Nausea vomiting: Status: Acute Qualifiers: Vomiting type: bilious vomiting Qualified Code(s): R11.14 - Bilious vomiting (3) RUQ pain: Status: Acute Plan: 24-year-old female reports abdominal pain with diarrhea after eating for the past 3 months. Pain is described as ruq and midepigastric, crampy, worse with movement and food with relieving factors,being rest. Patient also reports night sweats for the past several weeks. Described as soaking through pajamas, occurring almost every (more content not included)... Normal [facility] Abdomen/Pelvis WITH Contrast on 02-20-2025 Abdomen/Pelvis WITH Contrast [facility] Imaging Services [address] [place], [place] [address] Abdomen/Pelvis WITH Contrast MR#: [id number] Acct: [id number] Name: DUNG HULL Rep #: [id number] : 2000 F 24 From: Constantino Gallagher MD PCP: Care Physician,No Primary Status: REG CLI Study: Abdomen/Pelvis WITH Contrast Date of Exam: 02/09 Exam# [id number] Ordering Dr: Marc Maynard DO PROCEDURE: ABDOMEN/PELVIS WITH CONTRAST 02/20/2025 REASON FOR EXAM: ABDOMINAL PAIN TECHNIQUE: Abdomen and pelvis CT with oral and intravenous contrast. Coronal and Sagittal reconstruction series were provided. PATIENT PREPARATION: Per protocol CONTRAST: 98 mL Isovue 370 One or more dose reduction techniques were used (e.g., Automated exposure control, adjustment of the mA and/or kV according to patient size, use of iterative reconstruction technique. RADIATION DOSE SUMMARY: CTDlvol: 13.3 mGy DLP: 349 mGycm COMPARISON: Abdominal ultrasound 12/12/2024 FINDINGS: Lung bases: Unremarkable Liver: Normal size. No mass. Gallbladder: Unremarkable Spleen: Normal size. Pancreas: Normal size without evidence of mass surrounding inflammation or ductal dilation. Adrenals: Unremarkable Kidneys: No hydronephrosis or stones. Bladder: Unremarkable Reproductive Organs: Intrauterine device. Corpus luteum in the right ovary. Bowel: No obstruction or inflammation. Normal appendix. Lymph nodes: Unremarkable Vasculature: Borderline narrowing of the aortomesenteric angle which measures 23 degrees. 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 Correlate with symptoms. Otherwise unremarkable exam. Reading Location: [facility] CC: No Primary Care Physician; Marc Maynard DO Sound Printer: Signed Normal [facility] Gastric Emptying Studyon Gastric Emptying Study [facility] Imaging Services [address] [place] [address] Gastric Emptying Study MR#: [id number] Acct: [id number] Name: DUNG HULL Rep #: [id number] : 2000 F 24 From: Pola hull MD PCP: Care Physician,No Primary Status: REG CLI Study: Gastric Emptying Study Date of Exam: 02/11/25 Exam# [id number] Ordering Dr: Marc Maynard DO PROCEDURE: GASTRIC EMPTYING STUDY 02/11/2025 REASON FOR EXAM: ABDOMINAL PAIN COMPARISON: None TECHNIQUE: The patient ingested a standard meal of oatmeal as well as sulfur colloid, and water. There was no vomiting postprandially. Anterior and posterior planar images of the upper abdomen were obtained for 1 minute immediately following the meal at 1h, 2h and 4h if more than 10% of the activity persisted within the stomach. Regions of interest were drawn, and a geometric mean was used to calculate a xrqm-mmwkqoew-wculs. RADIOPHARMACEUTICAL: Sulfur colloid DOSE 1.1mCi FINDINGS: Percent activity remaining in stomach: 1 hour 48 % (normal 37-90%) NM/Gastric Emptying Study IMPRESSION: Normal gastric emptying examination. Reading Location: [place] [address] CC: No Primary Care Physician; Marc Maynard DO Sound Printer: Signed Normal [facility] PETERSON Comprehensive Panelon ANTI-CENT B AB <0.2 Normal 0.0-0.9 [facility] Comment on above: Performed By: #### L 501.9187, L3410.2350, L3100.5440, L501.6710, L503.6150, L3300.1800, L2100.0000, L3300.1200, L5500.0550, L504.2610, L101.9900, L503.6550, L501.9520, L503.0106, L501.9310 ####[facility] [address] [place], [place], [id number] ANTI-DNA (DS)AB <1 Normal 0-9 [facility] Comment on above: Result Comment: Nega tive <5 Equivocal 5 - 9 Positive >9 Performed By: #### L 501.9187, L3410.2350, L3100.5440, L501.6710, L503.6150, L3300.1800, L2100.0000, L3300.1200, L5500.0550, L504.2610, L101.9900, L503.6550, L501.9520, L503.0106, L501.9310 ####[facility] [address] [place], [place], [id number] ANCAon 01-22-2025 Atypical pANCA <1:20 Normal Neg:<1:20 [facility] Comment on above: Result Comment: The atypical pANCA pattern has been observed in a significant percentage of patients with ulcerative colitis, primary sclerosing cholangitis and autoimmune hepatitis. Performed By: #### L 501.9187, L3410.2350, L3100.5440, L501.6710, L503.6150, L3300.1800, L2100.0000, L3300.1200, L5500.0550, L504.2610, L101.9900, L503.6550, L501.9520, L503.0106, L501.9310 ####[facility] [address] [place], [place], [address] Cytoplasmic Ab <1:20 Normal Neg:<1:20 [facility] Comment on above: Performed By: #### L 501.9187, L3410.2350, L3100.5440, L501.6710, L503.6150, L3300.1800, L2100.0000, L3300.1200, L5500.0550, L504.2610, L101.9900, L503.6550, L501.9520, L503.0106, L501.9310 ####[facility] [address] [place], [place], [id number] Perinuclear Ab. <1:20 Normal Neg:<1:20 [facility] Comment on above: Result Comment: The presence of positive fluorescence exhibiting P-ANCA or C-ANCA patterns alone is not specific for the diagnosis of Janiya's Granulomatosis (WG) or microscopic polyangiitis. Decisions about treatment should not be based solely on ANCA IFA results. The International ANCA Group Consensus recommends follow up testing of positive sera with both UT- 3 and MPO-ANCA enzyme immunoassays. As many as 5% serum samples are positive only by EIA. Ref. AM J Clin Pathol 1999;111:507-513. Performed By: #### L 501.9187, L3410.2350, L3100.5440, L501.6710, L503.6150, L3300.1800, L2100.0000, L3300.1200, L5500.0550, L504.2610, L101.9900, L503.6550, L501.9520, L503.0106, L501.9310 ####[facility] [address] [place], [address] Celiac AB,Comprehensiveon ANTIGLIADIN IGA 3 units Normal 0-19 [facility] Comment on above: Result Comment: Nega tive 0 - 19 Weak Positive 20 - 30 Moderate to Strong Positive >30 Performed By: #### L 501.9187, L3410.2350, L3100.5440, L501.6710, L503.6150, L3300.1800, L2100.0000, L3300.1200, L5500.0550, L504.2610, L101.9900, L503.6550, L501.9520, L503.0106, L501.9310 ####[facility] [address] [place], [place], [address] ANTIGLIADIN IGG 2 units Normal 0-19 [facility] Comment on above: Result Comment: Nega tive 0 - 19 Weak Positive 20 - 30 Moderate to Strong Positive >30 Performed By: #### L 501.9187, L3410.2350, L3100.5440, L501.6710, L503.6150, L3300.1800, L2100.0000, L3300.1200, L5500.0550, L504.2610, L101.9900, L503.6550, L501.9520, L503.0106, L501.9310 ####[facility] [address] [place], [place], [address] ENDOMYSIAL IGA Negative Normal Negative [facility] Comment on above: Performed By: #### L 501.9187, L3410.2350, L3100.5440, L501.6710, L503.6150, L3300.1800, L2100.0000, L3300.1200, L5500.0550, L504.2610, L101.9900, L503.6550, L501.9520, L503.0106, L501.9310 ####[facility] [address] [place], [address] IMMUNOGLOB A QN 113 mg/dL Normal 87-352 [facility] Comment on above: Performed By: #### L 501.9187, L3410.2350, L3100.5440, L501.6710, L503.6150, L3300.1800, L2100.0000, L3300.1200, L5500.0550, L504.2610, L101.9900, L503.6550, L501.9520, L503.0106, L501.9310 ####[facility] [address] [place], [address] tTG IGA <2 Normal 0-3 [facility] Comment on above: Result Comment: Nega tive 0 - 3 Weak Positive 4 - 10 Positive >10 Tissue Transglutaminase (tTG) has been identified as the endomysial antigen. Studies have demonstr- ated that endomysial IgA antibodies have over 99% specificity for gluten sensitive enteropathy. Performed By: #### L 501.9187, L3410.2350, L3100.5440, L501.6710, L503.6150, L3300.1800, L2100.0000, L3300.1200, L5500.0550, L504.2610, L101.9900, L503.6550, L501.9520, L503.0106, L501.9310 ####[facility] [address] [place], [place], [id number] tTG IGG 4 U/mL Normal 0-5 [facility] Comment on above: Result Comment: Nega tive 0 - 5 Weak Positive 6 - 9 Positive >9 Performed By: #### L 501.9187, L3410.2350, L3100.5440, L501.6710, L503.6150, L3300.1800, L2100.0000, L3300.1200, L5500.0550, L504.2610, L101.9900, L503.6550, L501.9520, L503.0106, L501.9310 ####[facility] [address] [place], [place], [id number] Gastrin, Serumon 01-22-2025 GASTRIN 50 pg/mL Normal 0-115 [facility] Comment on above: Result Comment: Siem ens Immulite 2000 Immunochemiluminometric assay (ICMA) Values obtained with different assay methods or kits cannot be used interchangeably. Results cannot be interpreted as absolute evidence of the presence or absence of malignant disease. Performed at: [address] [id number] Lacrosse Player: Jersey La PhD, Phone: [phone] Performed at: [address] [id number] Lacrosse Player: Sadie Choe MD, Phone: [phone] Performed By: #### L 501.9187, L3410.2350, L3100.5440, L501.6710, L503.6150, L3300.1800, L2100.0000, L3300.1200, L5500.0550, L504.2610, L101.9900, L503.6550, L501.9520, L503.0106, L501.9310 ####[facility] [address] [place], [place], [address] L2100.0000on 01-22-2025 ACCA 10 units Normal 0-90 [facility] Comment on above: Result Comment: Nega tive: <80 Equivocal: 80-90 Positive: >90 Performed By: #### L 501.9187, L3410.2350, L3100.5440, L501.6710, L503.6150, L3300.1800, L2100.0000, L3300.1200, L5500.0550, L504.2610, L101.9900, L503.6550, L501.9520, L503.0106, L501.9310 ####[facility] [address] [place], [place], [id number] ALCA 4 units Normal 0-60 [facility] Comment on above: Result Comment: Nega tive:<55 Equivocal: 55-60 Positive: >60 Performed By: #### L 501.9187, L3410.2350, L3100.5440, L501.6710, L503.6150, L3300.1800, L2100.0000, L3300.1200, L5500.0550, L504.2610, L101.9900, L503.6550, L501.9520, L503.0106, L501.9310 ####[facility] [address] [place], [place], [id number] AMCA 1 units Normal 0-100 [facility] Comment on above: Result Comment: Nega tive: <90 Equivocal: 90-100 Positive: >100 This test was developed and its performance characteristics determined by [employer]. It has not been cleared or approved by the Food and Drug Administration. The FDA has determined that such clearance or approval is not necessary. Performed By: #### L 501.9187, L3410.2350, L3100.5440, L501.6710, L503.6150, L3300.1800, L2100.0000, L3300.1200, L5500.0550, L504.2610, L101.9900, L503.6550, L501.9520, L503.0106, L501.9310 ####[facility] [address] [place], [place], [address] Atypical pANCA Negative Normal Negative [facility] Comment on above: Performed By: #### L 501.9187, L3410.2350, L3100.5440, L501.6710, L503.6150, L3300.1800, L2100.0000, L3300.1200, L5500.0550, L504.2610, L101.9900, L503.6550, L501.9520, L503.0106, L501.9310 ####[facility] [address] [place], [place], [id number] COMMENT Comment Normal . [facility] Comment on above: Result Comment: Saba soledad is not suggestive of Inflammatory Bowel Disease Performed By: #### L 501.9187, L3410.2350, L3100.5440, L501.6710, L503.6150, L3300.1800, L2100.0000, L3300.1200, L5500.0550, L504.2610, L101.9900, L503.6550, L501.9520, L503.0106, L501.9310 ####[facility] [address] [place], [place], [address] Allie 5 units Normal 0-50 [facility] Comment on above: Result Comment: Nega tive: <45 Equivocal: 45-50 Positive: >50 Performed By: #### L 501.9187, L3410.2350, L3100.5440, L501.6710, L503.6150, L3300.1800, L2100.0000, L3300.1200, L5500.0550, L504.2610, L101.9900, L503.6550, L501.9520, L503.0106, L501.9310 ####[facility] [address] [place], [place], [address] L5500.0550on 01-22-2025 BEEF <0.10 Normal Class 0 [facility] Comment on above: Performed By: #### L 501.9187, L3410.2350, L3100.5440, L501.6710, L503.6150, L3300.1800, L2100.0000, L3300.1200, L5500.0550, L504.2610, L101.9900, L503.6550, L501.9520, L503.0106, L501.9310 ####[facility] [address] [place], [place], [address] CHOCOLATE <0.10 Normal Class 0 [facility] Comment on above: Performed By: #### L 501.9187, L3410.2350, L3100.5440, L501.6710, L503.6150, L3300.1800, L2100.0000, L3300.1200, L5500.0550, L504.2610, L101.9900, L503.6550, L501.9520, L503.0106, L501.9310 ####[facility] [address] [place], [place], [address] CODFISH <0.10 Normal Class 0 [facility] Comment on above: Performed By: #### L 501.9187, L3410.2350, L3100.5440, L501.6710, L503.6150, L3300.1800, L2100.0000, L3300.1200, L5500.0550, L504.2610, L101.9900, L503.6550, L501.9520, L503.0106, L501.9310 ####[facility] [address] [place], [place], [address] COMMENT Comment Normal . [facility] Comment on above: Result Comment: Ani lopez of Specific IgE Class Description of Class ----- < 0.10 0 Negative 0.10 - 0.31 0/I Equivocal/Low 0.32 - 0.55 I Low 0.56 - 1.40 II Moderate 1.41 - 3.90 III High 3.91 - 19.00 IV Very High 19.01 - 100.00 V Very High >100.00 Very High Performed By: #### L 501.9187, L3410.2350, L3100.5440, L501.6710, L503.6150, L3300.1800, L2100.0000, L3300.1200, L5500.0550, L504.2610, L101.9900, L503.6550, L501.9520, L503.0106, L501.9310 ####[facility] [address] [facility] [place], [place], [address] CORN <0.10 Normal Class 0 [facility] Comment on above: Performed By: #### L 501.9187, L3410.2350, L3100.5440, L501.6710, L503.6150, L3300.1800, L2100.0000, L3300.1200, L5500.0550, L504.2610, L101.9900, L503.6550, L501.9520, L503.0106, L501.9310 ####[facility] [address] [place], [place], [address] EGG, WHOLE <0.10 Normal Class 0 [facility] Comment on above: Result Comment: Perf ormed at: [address] [id number] Lacrosse Player: Jersey La PhD, Phone: [phone] Performed at: [address] [id number] Lacrosse Player: Sadie Choe MD, Phone: [phone] Performed By: #### L 501.9187, L3410.2350, L3100.5440, L501.6710, L503.6150, L3300.1800, L2100.0000, L3300.1200, L5500.0550, L504.2610, L101.9900, L503.6550, L501.9520, L503.0106, L501.9310 ####[facility] [address] [place], [place], [id number] MILK (COW) <0.10 Normal Class 0 [facility] Comment on above: Performed By: #### L 501.9187, L3410.2350, L3100.5440, L501.6710, L503.6150, L3300.1800, L2100.0000, L3300.1200, L5500.0550, L504.2610, L101.9900, L503.6550, L501.9520, L503.0106, L501.9310 ####[facility] [address] [place], [address] MUSSELS <0.10 Normal Class 0 [facility] Comment on above: Performed By: #### L 501.9187, L3410.2350, L3100.5440, L501.6710, L503.6150, L3300.1800, L2100.0000, L3300.1200, L5500.0550, L504.2610, L101.9900, L503.6550, L501.9520, L503.0106, L501.9310 ####[facility] [address] [place], [address] PEANUT <0.10 Normal Class 0 [facility] Comment on above: Performed By: #### L 501.9187, L3410.2350, L3100.5440, L501.6710, L503.6150, L3300.1800, L2100.0000, L3300.1200, L5500.0550, L504.2610, L101.9900, L503.6550, L501.9520, L503.0106, L501.9310 ####[facility] [address] [place], [place], [id number] PORK <0.10 Normal Class 0 [facility] Comment on above: Performed By: #### L 501.9187, L3410.2350, L3100.5440, L501.6710, L503.6150, L3300.1800, L2100.0000, L3300.1200, L5500.0550, L504.2610, L101.9900, L503.6550, L501.9520, L503.0106, L501.9310 ####[facility] [address] [place], [place], [id number] SALMON <0.10 Normal Class 0 [facility] Comment on above: Performed By: #### L 501.9187, L3410.2350, L3100.5440, L501.6710, L503.6150, L3300.1800, L2100.0000, L3300.1200, L5500.0550, L504.2610, L101.9900, L503.6550, L501.9520, L503.0106, L501.9310 ####[facility] [address] [place], [place], [id number] SHRIMP <0.10 Normal Class 0 [facility] Comment on above: Performed By: #### L 501.9187, L3410.2350, L3100.5440, L501.6710, L503.6150, L3300.1800, L2100.0000, L3300.1200, L5500.0550, L504.2610, L101.9900, L503.6550, L501.9520, L503.0106, L501.9310 ####[facility] [address] [place], [place], [id number] SOYBEAN <0.10 Normal Class 0 [facility] Comment on above: Performed By: #### L 501.9187, L3410.2350, L3100.5440, L501.6710, L503.6150, L3300.1800, L2100.0000, L3300.1200, L5500.0550, L504.2610, L101.9900, L503.6550, L501.9520, L503.0106, L501.9310 ####[facility] [address] [place], [place], [id number] TUNA <0.10 Normal Class 0 [facility] Comment on above: Performed By: #### L 501.9187, L3410.2350, L3100.5440, L501.6710, L503.6150, L3300.1800, L2100.0000, L3300.1200, L5500.0550, L504.2610, L101.9900, L503.6550, L501.9520, L503.0106, L501.9310 ####[facility] [address] [place], [place], [id number] WHEAT <0.10 Normal Class 0 [facility] Comment on above: Performed By: #### L 501.9187, L3410.2350, L3100.5440, L501.6710, L503.6150, L3300.1800, L2100.0000, L3300.1200, L5500.0550, L504.2610, L101.9900, L503.6550, L501.9520, L503.0106, L501.9310 ####[facility] [address] [place], [place], [id number] CRPon 01-17-2025 C-REACTIVE PROT < 3.00 Normal 0.0-3.0 [facility] Comment on above: Performed By: #### L 501.9187, L3410.2350, L3100.5440, L501.6710, L503.6150, L3300.1800, L2100.0000, L3300.1200, L5500.0550, L504.2610, L101.9900, L503.6550, L501.9520, L503.0106, L501.9310 ####[facility] [address] [place], [place], [id number] Chitobioside IgA antibody as sayOrdered By: Marc Maynard on 01-17-2025 Chitobioside IgA IA Qn 10 units 0-90 [facility] Comment on above: Negative: <80 Equivo natacha: 80-90 Positive: >90 Erythrocyte Sed Rateon 01-17 SED RATE 1 mm/hr Normal 0-30 [facility] Comment on above: Performed By: #### L 501.9187, L3410.2350, L3100.5440, L501.6710, L503.6150, L3300.1800, L2100.0000, L3300.1200, L5500.0550, L504.2610, L101.9900, L503.6550, L501.9520, L503.0106, L501.9310 ####[facility] [address] [place], [address] Erythrocyte sedimentation ra teOrdered By: Marc Maynard on 01-17-2025 ESR (Bld) [Velocity] 1 mm/h 0-30 [facility] Ferritinon 01-17-2025 Ferritin [Mass/Vol] 97 ng/mL Normal 22-378 [facility] Comment on above: Performed By: #### L 501.9187, L3410.2350, L3100.5440, L501.6710, L503.6150, L3300.1800, L2100.0000, L3300.1200, L5500.0550, L504.2610, L101.9900, L503.6550, L501.9520, L503.0106, L501.9310 ####[facility] [address] [place], [address] Gastrin, serumOrdered By: Ra richy Maynard on 01-17-2025 Gastrin [Mass/Vol] 50 pg/mL 0-115 [facility] Comment on above: Siemens Immulite 200 0 Immunochemiluminometric assay (ICMA)Values obtained with different assay methods or kits cannotbe used interchangeably. Results cannot be interpreted asabsolute evidence of the presence or absence of malignantdisease.Performed at: - [facility] [id number] [place], [place] [id number] Director: Jersey La PhD, Phone: [phone] at: - [facility] [id number] Director: Sadie Choe MD, Phone: [phone] Gastroenterology Visit Repor ton 01-17-2025 Gastroenterology Visit Report [facility] Gastroenterology [address] [place] [address] OFFICE VISIT Date of Service: 01/17/25 MR#: [id number] Acct: [id number] Name: DUNG HULL Rep #: [id number] : 2000 Provider: Marc Maynard DO Age/Sex: 24/F Location: [facility] Status: Signed Intake Vital Signs 12/17/24 09:42 Height 5 ft 2 in Weight: 126 lb 8 oz BMI 23.1 BP 94/68 Respiration 16 Pulse 73 Pulse Oximetry (%) 98 Oxygen Delivery Method room air Intake Visit Reasons: Discuss HiDA Scan. Allergies latex Allergy (Verified 12/17/24 09:40) Rash Medications ???Medication ???Instructions ???Recorded ???Confirmed ???Type pantoprazole 40 mg tablet,delayed 40 mg PO QDAY #90 tabs 12/17/24 0 01/17/25 Rx release PFSH Medical History (Updated 12/17/24 @ 12:00 by CHRISTAL Krishnamurthy) Generalized headaches Gastrointestinal problem UTI (urinary tract infection) Surgical History H/O section Family History (Updated 12/17/24 @ 09:49 by Pam Mcdowell) Grandfather Heart disease Unknown Thyroid cancer Other Anxiety Bone cancer Cancer Liver disease Pancreatic cancer Social History current occupational status: employed current occupation: [employer] Smoking Status: Current every day smoker tobacco type: e-cigarettes alcohol intake: never substance use type: does not use caffeine: No what type of physical activity do you participate in: walking frequency: 5-6 times per week seatbelt use: always HPI HPI Details: DUNG HULL, is a 24 F who presents to the office today for follow up. Gallbladder US 3..25 No acute abnormality. BGI established 4.1.25 HIDA 4..25 abnormal 12% OV 5.2.25 pt reports continued symptoms, diarrhea shortly after eating, nausea, and gas/bloating. Pt would like to discuss next steps for her care. ROS Const Constitutional: Positive for headache(s); No fatigue, fever(s) or weight change ENT ENT: Positive for headache(s); No difficulty swallowing Gastro GI: Positive for bloating, diarrhea, excessive flatus and nausea/dyspepsia; No abdominal pain, belching, change in bowel habits, change in stool character, coffee ground emesis, constipation, cramping, heartburn, difficulty swallowing, feeling full early, incontinent of stools, Vomiting blood/hematemesis, Blood in stool, loose stools, Black,tarry stools, pain with swallowing, vomiting or other Musc Musculoskeletal: Positive for leg pain at night; No joint pain Skin Skin: No yellowing of the eye or itchy eyes Neuro Neurology: Positive for headache(s) Psych Psychiatric: Positive for anxiety and No depression Endo Endocrine: No fatigue or weight change Aller/Imm Allergy/Immunologic: No itchy eyes Ian/Lymp Hematologic/Lymphatic: No easy bleeding or easy bruising Exam Const General: cooperative, healthy appearing, comfortable, no acute distress, well developed and well groomed Orientation: alert, awake and oriented x3 HENMT Head: normal to inspection Eyes Eyelids: eyelids normal Sclera: sclerae normal Neck Neck: normal visual inspection Resp Effort Inspection: normal respiratory effort Auscultation: Bilateral: Clear to Auscultation Cardio Rate: regular rate Rhythm: regular rhythm GI Inspection: normal to inspection Palpation: soft Rectal Exam: deferred Assessment and Plan Assessment and Plan (1) Diarrhea: Status: Acute Qualifiers: Diarrhea type: unspecified type Qualified Code(s): R19.7 - Diarrhea, unspecified (2) Nausea vomiting: Status: Acute Qualifiers: Vomiting type: bilious vomiting Qualified Code(s): R11.14 - Bilious vomiting (3) RUQ pain: Status: Acute Plan: 24-year-old female reports abdominal pain with diarrhea after eating for the past 3 months. Pain is described as ruq and midepigastric, crampy, worse with movement and food with relieving factors,being rest. Patient also reports night sweats for the past several weeks. Described as soaking through pajamas, occurring almost every night. Differential Diagnoses:???(Based on subjective and objective data, list possible causes of the symptoms. * Infections (IBD, Gastroenteritis, Pelvic Inflammatory Disease, Tuberculosis). * Gynecological Issues ( Endometriosis, Ovarian Cysts). * Inflammatory Bowel Disease (IBD). * Malignancy (e.g., Lymphoma). * Hormonal Changes (negative since being Mirena). Plan * Diagnostic Tests:???( CBC, CMP, inflammatory markers, stool studies, urinalysis, pelvic ultrasound, CT scan, test if relevant, TB testing). * Treatment:???(Include any immediate treatment given, e.g., pain medication, antiemetics, IV fluids). * Consultations:???(Consid er if specialist refer (more content not included)... Normal [facility] Ironon 01-17-2025 Iron [Mass/Vol] 68 ug/dL Normal 50-170 [facility] Comment on above: Performed By: #### L 501.9187, L3410.2350, L3100.5440, L501.6710, L503.6150, L3300.1800, L2100.0000, L3300.1200, L5500.0550, L504.2610, L101.9900, L503.6550, L501.9520, L503.0106, L501.9310 ####[facility] [address] [place], [place], [id number] Iron measurement (mass/mass) Ordered By: Marc Maynard on 01-17-2025 Iron (Unsp spec) [Mass/Mass] 68 ug/dL 50-170 [facility] L501.9187on 01-17-2025 T3 Total 1.11 ng/mL Normal 0.80-2.00 [facility] Comment on above: Performed By: #### L 501.9187, L3410.2350, L3100.5440, L501.6710, L503.6150, L3300.1800, L2100.0000, L3300.1200, L5500.0550, L504.2610, L101.9900, L503.6550, L501.9520, L503.0106, L501.9310 ####[facility] [address] [place], [place], [id number] LDHon 01-17-2025 LDH 154 U/L Normal 84-246 [facility] Comment on above: Order Comment: 1 Performed By: #### L 501.9187, L3410.2350, L3100.5440, L501.6710, L503.6150, L3300.1800, L2100.0000, L3300.1200, L5500.0550, L504.2610, L101.9900, L503.6550, L501.9520, L503.0106, L501.9310 ####[facility] [address] [place], [place], [id number] Laboratory - Miscellaneous t estsOrdered By: Marc Maynard on 01-17-2025 Laboratory comment Rohit (Report) Comment . [facility] Comment on above: Pattern is not sugge stive of Inflammatory Bowel Disease Service comment (Unsp spec) [Interp] Comment . [facility] Comment on above: Levels of Specific I gE Class Description of Class ----- < 0.10 0 Negative 0.10 - 0.31 0/I Equivocal/Low 0.32 - 0.55 I Low 0.56 - 1.40 II Moderate 1.41 - 3.90 III High 3.91 - 19.00 IV Very High 19.01 - 100.00 V Very High >100.00 Very High Lactate dehydrogenase (LDH) measurementOrdered By: Marc Maynard on 01-17-2025 LDH [Catalytic activity/Vol] 154 U/L 84-246 [facility] Laminaribioside carbohydrate IgG antibody assayOrdered By: Marc Maynard on 01-17-2025 Laminaribioside IgG IA Qn 4 units 0-60 [facility] Comment on above: Negative:<55 Equivoc al: 55-60 Positive: >60 No Panel InformationOrdered By: Marc Maynard on 01-17-2025 Tissue Transglutaminase IgG Ab 4 U/mL 0-5 [facility] Comment on above: Negative 0 - 5 Weak Positive 6 - 9 Positive >9 Serum DNA double strand anti body assay (units/volume)Ordered By: Marc Maynard on 01-17-2025 DNA double strand Ab Qn (S) [IU]/mL 0-9 [facility] Comment on above: Negative <5 Equivoca l 5 - 9 Positive >9 Serum Scl-70 antibody assay (units/volume)Ordered By: Marc Maynard on 01-17-2025 SCL-70 extractable nuclear Ab Qn (S) TNP [facility] Comment on above: Test not performed SCL-70 extractable nuclear Ab Qn (S) <0.2 AI 0.0-0.9 [facility] Comment on above: Previous reported re sult: TNP AIEdited by: LAZARA on 01/22/25:2007 AMENDED REPORT 01/22/252007 ANTISCLER previously reported as: Test not performed Serum beef IgE antibody assa y (units/volume)Ordered By: Marc Maynard on 01-17-2025 Beef IgE Qn (S) <0.10 kU/L Class 0 [facility] Serum classic neutrophil cyt oplasmic antibody assay (units/volume)Ordered By: Marc Maynard on 01-17-2025 Neutrophil cytoplasmic Ab.classic Qn (S) <1:20 titer Neg:<1:20 [facility] Serum codfish IgE antibody a ssay (units/volume)Ordered By: Marc Maynard on 01-17-2025 Codfish IgE Qn (S) <0.10 kU/L Class 0 [facility] Serum corn IgE antibody assa y (units/volume)Ordered By: Marc Maynard on 01-17-2025 [place] IgE Qn (S) <0.10 kU/L Class 0 [facility] Serum cow milk IgE antibody assay (units/volume)Ordered By: Marc Maynard on 01-17-2025 Cow milk IgE Qn (S) <0.10 kU/L Class 0 [facility] Serum or plasma C reactive p rotein measurement (mass/volume)Ordered By: Marc Maynard on 01-17-2025 CRP [Mass/Vol] mg/L 0.0-3.0 [facility] Serum or plasma ferritin teodoro surement (mass/volume)Ordered By: Marc Maynard on 01-17-2025 Ferritin [Mass/Vol] 97 ng/mL 22-378 [facility] Serum or plasma mannobioside IgG antibody assay by immunoassay (units/volume)Ordered By: Marc Maynard on 01-17-2025 Mannobioside IgG IA Qn 1 units 0-100 [facility] Comment on above: Negative: <90 Equivo natacha: 90-100 Positive: >100 This test was developed and its performance characteristics determined by [employer]. It has not been cleared or approved by the Food and Drug Administration. The FDA has determined that such clearance or approval is not necessary. Serum or plasma triiodothyro nine (T3) measurement (mass/volume)Ordered By: Marc Maynard on 01-17-2025 T3 [Mass/Vol] 1.11 ng/mL 0.80-2.00 [facility] Serum peanut IgE antibody as say (units/volume)Ordered By: Marc Maynard on 01-17-2025 Peanut IgE Qn (S) <0.10 kU/L Class 0 [facility] Serum perinuclear neutrophil cytoplasmic antibody titer by immunofluorescenceOrdered By: Marc Maynard on 01-17-2025 Neutrophil cytoplasmic Ab.perinuclear IF (S) [Titer] <1:20 titer Neg:<1:20 [facility] Comment on above: The presence of posi tive fluorescence exhibiting P-ANCA orC-ANCA patterns alone is not specific for the diagnosis ofWegener's Granulomatosis (WG) or microscopic polyangiitis.Decisions about treatment should not be based solely onANCA IFA results. The International ANCA Group Consensusrecommends follow up testing of positive sera with both UT-3 and MPO-ANCA enzyme immunoassays. As many as 5% serumsamples are positive only by EIA. Ref. AM J Clin Bcflsg8069;111:507-513. Serum pork IgE antibody assa y (units/volume)Ordered By: Marc Maynard on 01-17-2025 Pork IgE Qn (S) <0.10 kU/L Class 0 [facility] Serum salmon IgE antibody as say (units/volume)Ordered By: Marc Maynard on 01-17-2025 [place] IgE Qn (S) <0.10 kU/L Class 0 [facility] Serum soybean IgE antibody a ssay (units/volume)Ordered By: Marc Maynard on 01-17-2025 Soybean IgE Qn (S) <0.10 kU/L Class 0 [facility] Serum tissue transglutaminas e (tTG) IgA antibody assay (units/volume)Ordered By: Marc Maynard on 01-17-2025 tTG IgA Qn (S) <2 U/mL 0-3 [facility] Comment on above: Negative 0 - 3 Weak Positive 4 - 10 Positive >10 Tissue Transglutaminase (tTG) has been identified as the endomysial antigen. Studies have demonstr- ated that endomysial IgA antibodies have over 99% specificity for gluten sensitive enteropathy. Serum tuna IgE antibody assa y (units/volume)Ordered By: Marc Maynard on 01-17-2025 Tuna IgE Qn (S) <0.10 kU/L Class 0 [facility] Serum wheat IgE antibody ass ay (units/volume)Ordered By: Marc Maynard on 01-17-2025 Wheat IgE Qn (S) <0.10 kU/L Class 0 [facility] Serum whole egg IgE antibody assay (units/volume)Ordered By: Marc Maynard on 01-17-2025 Whole Egg IgE Qn (S) <0.10 kU/L Class 0 [facility] Comment on above: Performed at: [address] [id number] Director: Jersey La PhD, Phone: [phone] at: BN - [facility] [address] [id number] Director: Sadie Choe MD, Phone: [phone] T4 Total, Thyroxinon 025 T4 [Mass/Vol] 7.5 ug/dL Normal 4.8-13.9 [facility] Comment on above: Performed By: #### L 501.9187, L3410.2350, L3100.5440, L501.6710, L503.6150, L3300.1800, L2100.0000, L3300.1200, L5500.0550, L504.2610, L101.9900, L503.6550, L501.9520, L503.0106, L501.9310 ####[facility] [address] [place], [place], [id number] TSH DL <= 0.005 mIU/L QnOrde red By: Marc Maynard on 01-17-2025 TSH Qn 1.100 uIU/mL 0.300-4.200 [facility] Thyroid Stim Hormone (TSH)on 01-17-2025 TSH 1.100 uIU/mL Normal 0.300-4.200 [facility] Comment on above: Performed By: #### L 501.9187, L3410.2350, L3100.5440, L501.6710, L503.6150, L3300.1800, L2100.0000, L3300.1200, L5500.0550, L504.2610, L101.9900, L503.6550, L501.9520, L503.0106, L501.9310 ####[facility] [address] [facility] [place], [address] ThyroxineOrdered By: Marc Maynard on 01-17-2025 T4 [Mass/Vol] 7.5 ug/dL 4.8-13.9 [facility] Vitamin B12on 01-17-2025 Cobalamin (Vitamin B12) [Mass/Vol] 401 pg/mL Normal 180-914 [facility] Comment on above: Performed By: #### L 501.9187, L3410.2350, L3100.5440, L501.6710, L503.6150, L3300.1800, L2100.0000, L3300.1200, L5500.0550, L504.2610, L101.9900, L503.6550, L501.9520, L503.0106, L501.9310 ####[facility] [address] [place], [place], [id number] Vitamin B12 ser/plasOrdered By: Marc Maynard on 01-17-2025 Cobalamin (Vitamin B12) [Mass/Vol] 401 pg/mL [id number] [facility] Hepatobilliary Img w/Pharm I nton 01-10-2025 Hepatobilliary Img w/Pharm Int [facility] Imaging Services [address] [place], [place] [address] Hepatobilliary Img w/Pharm Int MR#: [id number] Acct: [id number] Name: DUNG HULL Rep #: [id number] : 2000 F 24 From: Pola hull MD PCP: Care Physician,No Primary Status: REG CLI Study: Hepatobilliary Img w/Pharm Int Date of Exam: 0 01/10/25 Exam# [id number] Ordering Dr: Oneyda Bustamante [employer]- C PROCEDURE: HEPATOBILLIARY IMG W/PHARM INT 01/10/2025 REASON FOR EXAM: RUQ PAIN, N/V TECHNIQUE: Intravenous Choletec with planar imaging of the abdomen. 1.1 mcg Kinevac intravenously approximately 60 minutes after the radiopharmaceutical with additional anterior imaging and a region of interest drawn around the gallbladder to calculate a time-activity curve. RADIOPHARMACEUTICAL: 5.1 mCi of technetium labeled mebrofenin COMPARISON: Prior sonogram of the right upper quadrant dated December 12, 2024. FINDINGS: There is good uptake of the radiopharmaceutical by the liver. Normal gallbladder visualization with the gallbladder identified by 30 minutes. Gallbladder Ejection Fraction: 12 % (Normal is >35%) NM/Hepatobilliary Img w/Pharm Int IMPRESSION: Abnormal gallbladder ejection fraction. Reading Location: [place] [address] CC: CHRISTAL Bustamante; No Primary Care Physician Sound Printer: Signed Normal [facility] Gastroenterology Visit Repor ton 12-17-2024 Gastroenterology Visit Report [facility] Gastroenterology [address] [place] [address] OFFICE VISIT Date of Service: 12/17/24 MR#: [id number] Acct: [id number] Name: DUNG HULL Rep #: [id number] : 2000 Provider: CHRISTAL johnson Age/Sex: 24/F Location: [facility] Status: Signed Intake Vital Signs 12/12/24 13:31 12/17/24 09:42 Height 5 ft 2 in 5 ft 2 in Weight: 126 lb 8 oz BMI 23.1 BP 94/68 Respiration 16 Pulse 73 Pulse Oximetry (%) 98 Oxygen Delivery Method room air Intake Visit Reasons: ED follow up Chief Complaint: abdominal pain [employer] Specialist Required: No Is patient in pain?: Yes Allergies latex Allergy (Verified 12/17/24 09:40) Rash Medications ???Medication ???Instructions ???Recorded ???Confirmed ???Type pantoprazole 40 mg tablet,delayed 40 mg PO QDAY #90 tabs 12/17/24 0 12/17/24 Rx release Nurse's Note: Wakes up nauseous and no energy. She has hot flashes. Has diarrhea and constipations. This has been going on for a little over two weeks now. [facility] Medical History (Updated 12/17/24 @ 12:00 by CHRISTAL Krishnamurthy) Generalized headaches Gastrointestinal problem UTI (urinary tract infection) Surgical History H/O section Family History (Updated 12/17/24 @ 09:49 by Pam Mcdowell) Grandfather Heart disease Unknown Thyroid cancer Other Anxiety Bone cancer Cancer Liver disease Pancreatic cancer Social History current occupational status: employed current occupation: [employer] Smoking Status: Current every day smoker tobacco type: e-cigarettes alcohol intake: never substance use type: does not use caffeine: No what type of physical activity do you participate in: walking frequency: 5-6 times per week seatbelt use: always HPI HPI Chief Complaint: abdominal pain Details: DUNG HULL, is a 24 F who presents to the office today for - UA test negative CBC: 12/12/2024 unremarkable CMP: unremarkable Lipase: 12/12/2024 unremarkable - ER notes Abdominal exam revealing for Bermudez's sign with unremarkable abdominal ultrasound. - symptoms for the past 2 weeks - RUQ pain - sharp, applying pressure intensifies pain, radiates down into RLQ, sudden onset 2 weeks ago, pain is constant - no change in pain with PO intake - wakes in morning with nausea, vomiting intermittent (bile) - heat flashes - denies any fevers - denies any weight loss - she is having diarrhea, watery stools, 2-3x a day - feels like she can't go - lower abdominal cramping - reports she has increase in RUQ after a BM - denies any bleeding - prior to onset of diarrhea she was having 1 formed BM daily - denies any nocturnal stools - Mirena - does not have a menstrual cycle - h/o - rare alcohol use - denies using any NSAIDS - vaping - denies any marijuana use ROS Const Constitutional: Positive for headache(s); No fatigue, fever(s) or weight change ENT ENT: Positive for headache(s); No difficulty swallowing Gastro GI: Positive for abdominal pain, bloating, change in bowel habits, constipation, diarrhea, nausea/dyspepsia and vomiting; No belching, change in stool character, coffee ground emesis, cramping, heartburn, difficulty swallowing, feeling full early, excessive flatus, incontinent of stools, Vomiting blood/hematemesis, Blood in stool, loose stools, Black,tarry stools, pain with swallowing or other Musc Musculoskeletal: Positive for leg pain at night; No joint pain Skin Skin: No yellowing of the eye or itchy eyes Neuro Neurology: Positive for dizziness and headache(s) Psych Psychiatric: Positive for anxiety and No depression Endo Endocrine: No fatigue or weight change Aller/Imm Allergy/Immunologic: No itchy eyes Ian/Lymp Hematologic/Lymphatic: Positive for easy bruising; No easy bleeding Exam Const General: cooperative, healthy appearing, no acute distress and well developed Nutritional Appearance: average body habitus and well nourished Orientation: alert and oriented x3 HENMT Head: normocephalic Ears: hearing grossly normal bilaterally Mouth: moist mucous membranes Teeth and gingiva: dentition normal Eyes Conjunctivae: conjunctivae normal Sclera: sclerae normal Neck Neck: normal visual inspection, full ROM and trachea midline Resp Effort Inspection: normal respiratory effort, able to speak in complete sentences and symmetric chest movement Auscultation: Bilateral: Clear to Auscultation Cardio Rate: regular rate Rhythm: regular rhythm GI Inspection: normal to inspection Auscultation: normal bowel sounds Palpation: soft and no hepatosplenomegaly Rectal Exam: deferred Skin General: n (more content not included)... Normal [facility] 12-16-2024 [facility] Telephone (FAMPWS) -------- DUNG HULL ([id number]) 4 F Date Time Provider Department 12/16/24 NO PCP (HIST) FAMPWS During your visit today, we recorded the following information about you: Kenny Coto LPN 12/16/2024 2:26 PM Signed No Show letter #1 sent to pt. Kenny Coto LPN Allergies As of Date: 12/16/2024 Noted Allergy Reaction LATEX 02/24/2022 2 - Rash Date Reviewed: 02/10/2023 Reviewed by: Kanchan Jones APRN.[facility] - Fully Assessed Reason for Visit: No Show Letter #1 [Other] Prescriptions as of 12/16/2024 - levonorgestrel (LILETTA) 20.4 mcg/24 hr (8 yrs) 52 mg IUD one time only. - levonorgestrel (MIRENA INTRAUTERINE) by INTRAUTERINE route. - omeprazole (PRILOSEC) 20 mg capsule Take 1 capsule by mouth once daily. Problem List As Of Date: 12/16/2024 (None) Letter Text Encounter Status:Closed by KENNY COTO on 12/16/24 Normal [facility] Absolute lymphocyte countOrd ered By: Theo Pozo on 12-12-2024 Lymphocytes Auto (Unsp spec) [#/Vol] 2.26 10*3/uL 0.83-4.51 [facility] Absolute neutrophil countOrd ered By: Theo Pozo on 12-12-2024 Neutrophils (Bld) [#/Vol] 3.4 10*3/uL 2.0-7.7 [facility] Anion gap in Serum or Plasma Ordered By: Theo Pozo on 12-12-2024 Anion gap [Moles/Vol] 19 mmol/L High 5-15 [facility] Automated lymphocyte count a s percentage of total leukocytesOrdered By: Theo Pozo on 12-12-2024 Lymphocytes/100 WBC Auto (Unsp spec) 35.0 % 19-41 [facility] BUN/creatinine ratioOrdered By: Theo Pozo on 12-12-2024 Urea nitrogen/Creatinine [Mass ratio] 14.9 mg/mg 10-20 [facility] Basic Metabolic Profile (BMP )on 12-12-2024 BUN/CRE 14.9 RATIO Normal -20 [facility] Comment on above: Performed By: #### L 500.3400, L501.2450, L100.0100, L500.2500 ####[facility] [address] [place], [address] Calcium [Mass/Vol] 9.3 mg/dL Normal 7.6-11.0 [facility] Comment on above: Performed By: #### L 500.3400, L501.2450, L100.0100, L500.2500 ####[facility] [address] [place], [address] Chloride [Moles/Vol] 104 mmol/L Normal 98-108 [facility] Comment on above: Performed By: #### L 500.3400, L501.2450, L100.0100, L500.2500 ####[facility] [address] [place], [address] CO2 [Moles/Vol] 17.6 mmol/L Low 21.0-32.0 [facility] Comment on above: Performed By: #### L 500.3400, L501.2450, L100.0100, L500.2500 ####[facility] [address] [place], [address] Creatinine [Mass/Vol] 0.75 mg/dL Normal 0.70-1.20 [facility] Comment on above: Performed By: #### L 500.3400, L501.2450, L100.0100, L500.2500 ####[facility] [address] [place], [address] ECRCL 93.06 ml/min Normal 50-250 [facility] Comment on above: Performed By: #### L 500.3400, L501.2450, L100.0100, L500.2500 ####[facility] [address] [place], [address] GAP 19 High 5-15 [facility] Comment on above: Performed By: #### L 500.3400, L501.2450, L100.0100, L500.2500 ####[facility] [address] [place], [address] GFR/1.73 sq M.predicted among non-blacks MDRD (S/P/Bld) [Vol rate/Area] 115 mL/min/{1.73_m2} Normal >60 [facility] Comment on above: Result Comment: mL/m in/1.73m2 CKD-EPI Creatinine Equation (2020) Performed By: #### L 500.3400, L501.2450, L100.0100, L500.2500 ####[facility] [address] [place], [address] Glucose [Mass/Vol] 82 mg/dL Normal 70-99 [facility] Comment on above: Performed By: #### L 500.3400, L501.2450, L100.0100, L500.2500 ####[facility] [address] [place], [address] Potassium [Moles/Vol] 3.7 mmol/L Normal 3.3-5.1 [facility] Comment on above: Performed By: #### L 500.3400, L501.2450, L100.0100, L500.2500 ####[facility] [address] [place], [address] Sodium [Moles/Vol] 140 mmol/L Normal 133-145 [facility] Comment on above: Performed By: #### L 500.3400, L501.2450, L100.0100, L500.2500 ####[facility] [address] [place], [address] Urea nitrogen [Mass/Vol] 11 mg/dL Normal 4-19 [facility] Comment on above: Performed By: #### L 500.3400, L501.2450, L100.0100, L500.2500 ####[facility] [address] [place], [address] Basophil percentageOrdered B y: Theo Pozo on 12-12-2024 Basophils/100 WBC (Bld) 0.9 % 0-1 [facility] Bilirubin Test strip Ql (U)O rdered By: Theo Pozo on 12-12-2024 Bilirubin Ql (U) Negative Negative [facility] Bilirubin directOrdered By: Theo Pozo on 12-12-2024 Bilirubin.direct [Mass/Vol] 0.26 mg/dL 0.00-0.30 [facility] Bilirubin, totalOrdered By: Theo Pozo on 12-12-2024 Bilirubin [Mass/Vol] 0.52 mg/dL 0.00-1.30 [facility] CBC W/Diff, Automatedon 11-17 Absolute Lymph 2.26 X10 3/uL Normal 0.83-4.51 [facility] Comment on above: Performed By: #### L 500.3400, L501.2450, L100.0100, L500.2500 ####[facility] [address] [place], [address] Absolute Neut 3.4 X10 3/uL Normal 2.0-7.7 [facility] Comment on above: Performed By: #### L 500.3400, L501.2450, L100.0100, L500.2500 ####[facility] [address] [place], [address] Basophils/100 WBC (Bld) 0.9 % Normal 0-1 [facility] Comment on above: Performed By: #### L 500.3400, L501.2450, L100.0100, L500.2500 ####[facility] [address] [place], [address] Eosinophils/100 WBC (Bld) 0.8 % Normal 0-5 [facility] Comment on above: Performed By: #### L 500.3400, L501.2450, L100.0100, L500.2500 ####[facility] [address] [place], [address] Erythrocyte distribution width (RBC) [Ratio] 12.1 % Normal 11.6-14.6 [facility] Comment on above: Performed By: #### L 500.3400, L501.2450, L100.0100, L500.2500 ####[facility] [address] [place], [address] Hematocrit (Bld) [Volume fraction] 39.9 % Normal 37-47 [facility] Comment on above: Performed By: #### L 500.3400, L501.2450, L100.0100, L500.2500 ####[facility] [address] [place], [address] Hemoglobin (Bld) [Mass/Vol] 13.5 g/dL Normal 12.0-15.0 [facility] Comment on above: Performed By: #### L 500.3400, L501.2450, L100.0100, L500.2500 ####[facility] [address] [place], [address] IG% 0.300 Normal 0.0-0.9 [facility] Comment on above: Result Comment: IG% - Immature Granulocytes (promyelocytes, myelocytes and metamyelocytes) > 1% indicates that a LEFT SHIFT is Present. Performed By: #### L 500.3400, L501.2450, L100.0100, L500.2500 ####[facility] [address] [place], [address] Lymphocytes/100 WBC (Bld) 35.0 % Normal 19-41 [facility] Comment on above: Performed By: #### L 500.3400, L501.2450, L100.0100, L500.2500 ####[facility] [address] [place], [address] MCH (RBC) [Entitic mass] 30.1 pg Normal 27.0-32.0 [facility] Comment on above: Performed By: #### L 500.3400, L501.2450, L100.0100, L500.2500 ####[facility] [address] [place], [address] MCHC (RBC) [Mass/Vol] 33.8 g/dL Normal 32-36 [facility] Comment on above: Performed By: #### L 500.3400, L501.2450, L100.0100, L500.2500 ####[facility] [address] [place], [address] MCV (RBC) [Entitic vol] 89.1 fL Normal 81-99 [facility] Comment on above: Performed By: #### L 500.3400, L501.2450, L100.0100, L500.2500 ####[facility] [address] [place], [address] Monocytes/100 WBC (Bld) 10.1 % High 0-10 [facility] Comment on above: Performed By: #### L 500.3400, L501.2450, L100.0100, L500.2500 ####[facility] [address] [place], [address] Neutrophils/100 WBC (Bld) 52.9 % Normal 47-70 [facility] Comment on above: Performed By: #### L 500.3400, L501.2450, L100.0100, L500.2500 ####[facility] [address] [place], [address] Nucleated RBC (Bld) [#/Vol] 0 10*3/uL Normal 0-5 [facility] Comment on above: Performed By: #### L 500.3400, L501.2450, L100.0100, L500.2500 ####[facility] [address] [place], [address] Platelet mean volume (Bld) [Entitic vol] 11.4 fL Normal 6.2-12.0 [facility] Comment on above: Performed By: #### L 500.3400, L501.2450, L100.0100, L500.2500 ####[facility] [address] [place], [address] Platelets (Bld) [#/Vol] 279 10*3/uL Normal 150-450 [facility] Comment on above: Performed By: #### L 500.3400, L501.2450, L100.0100, L500.2500 ####[facility] [address] [place], [address] RBC (Bld) [#/Vol] 4.48 10*6/uL Normal 4.2-5.4 [facility] Comment on above: Performed By: #### L 500.3400, L501.2450, L100.0100, L500.2500 ####[facility] [address] [place], [address] RDW SD 39.6 fl Normal 35.1-43.9 [facility] Comment on above: Performed By: #### L 500.3400, L501.2450, L100.0100, L500.2500 ####[facility] [address] [place], [address] WBC (Bld) [#/Vol] 6.5 10*3/uL Normal 4.4-11.0 [facility] Comment on above: Performed By: #### L 500.3400, L501.2450, L100.0100, L500.2500 ####[facility] [address] [place], [address] CNOVon 12-12-2024 CNOV Office Visit (UCWSTR ) -------- DUNG HULL ([id number]) 4 F Date Time Provider Department 12/12/24 1:15 PM RAUL MACKENZIE [facility] During your visit today, we recorded the following information about you: Raul Mackenzie PA 12/12/2024 1:23 PM Signed 24-year-old female presents for right upper quadrant abdominal pain. Patient states pain has been present on and off for the past couple weeks, worse recently. She states now pain is constant. She states that she had vomiting yesterday. She has had hot flashes. She does still have her gallbladder. Patient states pain is getting worse and is severe all day long. At this time, patient being referred to ER for abdominal pain workup. Patient agreeable to plan. Will go to ER now. Allergies As of Date: 12/12/2024 Noted Allergy Reaction LATEX 02/24/2022 2 - Rash Date Reviewed: 02/10/2023 Reviewed by: Kanchan Jones APRN.[employer] - Fully Assessed Primary Visit Diagnosis:RUQ pain [R10.11] Prescriptions as of 12/12/2024 - levonorgestrel (LILETTA) 20.4 mcg/24 hr (8 yrs) 52 mg IUD one time only. - levonorgestrel (MIRENA INTRAUTERINE) by INTRAUTERINE route. - omeprazole (PRILOSEC) 20 mg capsule Take 1 capsule by mouth once daily. Problem List As Of Date: 12/12/2024 (None) Encounter Status:Closed by RAUL MACKENZIE on 12/12/24 Normal [facility] Carbon dioxide, total [Moles /volume] in Central venous bloodOrdered By: Theo Pozo on 12-12-2024 CO2 [Moles/Vol] 17.6 mmol/L Low 21.0-32.0 [facility] Chloride assayOrdered By: Russ Pozo on 12-12-2024 Chloride [Moles/Vol] 104 mmol/L 98-108 [facility] Emergency Department Summary on 12-12-2024 Emergency Department Summary [facility] Medical Records Department [address] [place] [address] Emergency Department Summary 12/12/24 MR#: [id number] Acct: [id number] Name: DUNG HULL Rep #: [id number] : 2000 24 From: Theo Pozo DO PCP: Care Physician,No Primary Status:[facility] ER Location: ED HPI History of Present Illness Chief Complaint: Abd Pain PFSH PFSH Home Medications ???Medication ???Instructions ???Recorded ???Last Taken ???Type NK 12/12/24 Unknown History Allergy/AdvReac Type Severity Reaction Status Date / Time latex Allergy Rash Verified 12/12/24 13:33 Family History Grandfather Heart disease Unknown Thyroid cancer Surgical History H/O section Social History current occupational status: employed current occupation: [employer] Smoking Status: Current every day smoker tobacco type: e-cigarettes alcohol intake: never substance use type: does not use caffeine: No what type of physical activity do you participate in: walking frequency: 5-6 times per week seatbelt use: always EXAM Physical Exam Const Vital Signs: 12/12/24 13:31 Temperature 97 F L Temperature Source Temporal Pulse Rate 74 Respiratory Rate 15 Blood Pressure 106/74 Blood Pressure Mean 84 Pulse Ox 100 Oxygen Delivery Method Room Air MDM MDM MDM Narrative Medical decision making narrative: HISTORY OF PRESENT ILLNESS: 24-year-old female presents with concern for abdominal pain. She states she has had 10 days of abdominal pain. Notes nausea vomiting diarrhea as well. No blood in her vomit. No blood in her stool. No melena. Notes history of otherwise no abdominal surgeries. Denies any urinary complaints. No fever REVIEW OF SYSTEMS: Pertinent positives: Right upper quadrant abdominal pain, nausea vomiting diarrhea Pertinent negatives: Fever, chest pain, urinary complaints, vaginal bleeding or discharge. PHYSICAL EXAM: Nursing triage notes reviewed, Vital signs reviewed Constitutional: please see mdm HENT: MMM Eyes: Pupils equal round and reactive to light, Extraocular muscles intact Neck: No stridor, no JVD, full neck ROM Lungs: Clear to auscultation, No wheezing or rales. No increased work of breathing, no conversational dyspnea, no accessory muscle use, no nasal flaring. No respiratory distress noted Heart: Regular rate and rhythm, No murmurs, No rubs and No gallops, 2+ distal pulses (radial, femoral, posterior tibial) in all extremities Abdomen: Lateral quad TTP, positive Bermudez sign, rigidity, rebound or guarding, no obvious peritoneal signs, no palpable pulsatile abdominal masses, no auscultated abdominal bruit : No CVAT Extremities: No edema Neuro: No new focal neurological deficits, cranial nerves II through XII intact, 5/5 strength in all present extremities. Intact sensation to light touch in all present extremities, 2+ reflexes bilateral patella tendons. Skin: No rash or lesions noted MEDICAL DECISION MAKING: Chief Complaint: Abdominal pain External records reviewed: Reviewed prior imaging studies Social determinants of health: Denies alcohol History obtained from others: none Consults: none [facility] Narrative: The patient was initially hemodynamically stable, afebrile and nontoxic-appearing. Exam with right upper quadrant TTP, positive Bermudez sign. I considered the following differential diagnosis: AAA, small bowel obstruction, abdominal perforation, appendicitis, pancreatitis, hepatobiliary pathology (acute cholecystitis), mesenteric ischemia, pathology (ie nephrolithiasis, pyelonephritis). I obtained a broad lab and imaging workup to further elucidate etiology of the patient's complaints I initially treated the patient with 1 L normal saline and 4 mg IV Zofran ALL IMAGES (IF OBTAINED) HAVE BEEN PERSONALLY REVIEWED AND INTERPRETED BY MYSELF. CBC without leukocytosis, severe anemia, no thrombocytopenia. Urine test is negative Urinalysis shows no evidence of urinary inflammation suggestive of UTI BMP without evidence of significant electrolyte abnormalities, no acute kidney injury. LFTs show no evidence of hepatobiliary pathology. Right quad ultrasound shows evidence of acute gallbladder pathology The synthesis of the patient's history, physical exam, labs images suggest no acute life-threatening surgical abnormality. I suspect there could be a GI related component including gastritis, esop hagitis or peptic ulcer disease. Will encourage close outpatient GI follow-up. Return precautions were discussed The patient and/or family, caregivers express understanding. The patient and/or family, car (more content not included)... Normal [facility] Eosinophil percentageOrdered By: Theo Pozo on 12-12-2024 Eosinophils/100 WBC (Bld) 0.8 % 0-5 [facility] Epithelial cells.squamous LM Ql (Urine sed)Ordered By: Theo Pozo on 12-12-2024 Epithelial cells.squamous LM.HPF (Urine sed) [#/Area] 0 /[HPF] 5-10 [facility] Erythrocyte distribution wid th ratioOrdered By: Theo Pozo on 12-12-2024 Erythrocyte distribution width (RBC) [Ratio] 12.1 % 11.6-14.6 [facility] Erythrocyte distribution wid th standard deviationOrdered By: Theo Pozo on 12-12-2024 Erythrocyte distribution width (RBC) [Entitic vol] 39.6 fL 35.1-43.9 [facility] Erythrocyte distribution width (RBC) [Ratio] 39.6 fl 35.1-43.9 [facility] Estimation of creatinine mihir aranceOrdered By: Theo Pozo on 12-12-2024 Estimated Creatinine Clearance Calc 93.06 ml/min 50-250 [facility] GFR/1.73 sq M.predicted maya g non-blacks MDRD (S/P/Bld) [Vol rate/Area]Ordered By: Theo Pozo on 12-12-2024 Estimated GFR (MDRD) Non-Af Amer 115 >60 [facility] Comment on above: mL/min/1.73m2 CKD-EP I Creatinine Equation (2020) Gallbladderon 12-12-2024 Gallbladder [facility] Imaging Services [address] [place], [place] [address] Gallbladder MR#: [id number] Acct: [id number] Name: DUNG HULL Rep #: [id number] : 2000 F 24 From: Katja Don MD PCP: Care Physician,No Primary Status: REG ER Study: Gallbladder Date of Exam: 12/12/24 Exam# [id number] Ordering Dr: Theo Pozo DO PROCEDURE: GALLBLADDER 12/12/2024 REASON FOR EXAM: RUQ TTP COMPARISON: None FINDINGS: Liver: Normal echogenicity and contour.No hepatic lesions identified.The portal vein is patent with hepatopetal flow. Size: 12.1 cm Gallbladder/biliary: No gallstones or gallbladder wall thickening.The common bile duct is normal in caliber. Pancreas: Visualized portions are unremarkable. Right kidney: Normal echogenicity and vascularity. Size: 10.3 cm US/Gallbladder IMPRESSION: 1. No acute abnormality. [facility] CC: Dr. Theo Sánchez, DO; No Primary Care Physician Sound Printer: Signed Normal [facility] Glomerular filtration rate ( GFR) estimation/1.73 sq m using serum, plasma, or whole bOrdered By: Theo Pozo on 12-12-2024 GFR/1.73 sq M.predicted among non-blacks MDRD (S/P/Bld) [Vol rate/Area] 115 mL/min/{1.73_m2} >60 [facility] Comment on above: mL/min/1.73m2 CKD-EP I Creatinine Equation (2020) Glucose Ql (U)Ordered By: Russ Pozo on 12-12-2024 Urine Glucose (UA) Normal mg/dl Normal [facility] Hematocrit Auto (Bld) [Volum e fraction]Ordered By: Theo Pozo on 12-12-2024 Hematocrit (Bld) [Volume fraction] 39.9 % 37-47 [facility] Hemoglobin measurementOrdere d By: Theo Pozo on 12-12-2024 Hemoglobin (Bld) [Mass/Vol] 13.5 g/dL 12.0-15.0 [facility] Immature granulocytes/100 WB C Auto (Bld)Ordered By: Theo Pozo on 12-12-2024 Immature granulocytes/100 WBC (Bld) 0.300 % 0.0-0.9 [facility] Comment on above: IG% - Immature Granu locytes (promyelocytes, myelocytes and metamyelocytes) > 1% indicates that a LEFT SHIFT is Present. Ketones Test strip Ql (U)Ord ered By: Theo Pozo on 12-12-2024 Ketones Ql (U) 5 mg/dl High Negative [facility] Laboratory - Chemistry and C hemistry - challengeOrdered By: Theo Pozo on 12-12-2024 AST [Catalytic activity/Vol] 19 U/L <32 [facility] Lipaseon 12-12-2024 Lipase [Catalytic activity/Vol] 24 U/L Normal 13-75 [facility] Comment on above: Result Comment: Judi peterson note: LIPASE revised reference range effective 22. New Lipase methodology. Expected to produce lower values than the previous assay method. NEW Reference Range: 13 - 75 U/L Performed By: #### L 500.3400, L501.2450, L100.0100, L500.2500 ####[facility] [address] [place], [address] Lipase measurementOrdered By : Theo Pozo on 12-12-2024 Lipase [Catalytic activity/Vol] 24 U/L 13-75 [facility] Comment on above: Please note:LIPASE r evised reference range effective 22. New Lipase methodology. Expected to produce lower values than the previous assay method. NEW Reference Range: 13 - 75 U/L Liver Profileon 12-12-2024 Albumin [Mass/Vol] 4.6 g/dL Normal 3.5-5.0 [facility] Comment on above: Performed By: #### L 500.3400, L501.2450, L100.0100, L500.2500 ####[facility] [address] [place], [address] ALK PHOS 55 U/L Normal 35-104 [facility] Comment on above: Performed By: #### L 500.3400, L501.2450, L100.0100, L500.2500 ####[facility] [address] [place], [address] ALT [Catalytic activity/Vol] 10 U/L Normal <=34 [facility] Comment on above: Performed By: #### L 500.3400, L501.2450, L100.0100, L500.2500 ####[facility] [address] [place], [address] AST [Catalytic activity/Vol] 19 U/L Normal <=31 [facility] Comment on above: Performed By: #### L 500.3400, L501.2450, L100.0100, L500.2500 ####[facility] [address] [place], [address] Bilirubin [Mass/Vol] 0.52 mg/dL Normal 0.00-1.30 [facility] Comment on above: Performed By: #### L 500.3400, L501.2450, L100.0100, L500.2500 ####[facility] [address] [place], [address] Bilirubin.direct [Mass/Vol] 0.26 mg/dL Normal 0.00-0.30 [facility] Comment on above: Performed By: #### L 500.3400, L501.2450, L100.0100, L500.2500 ####[facility] [address] [place], [address] Globulin (S) [Mass/Vol] 2.3 g/dL Normal 2.2-4.2 [facility] Comment on above: Performed By: #### L 500.3400, L501.2450, L100.0100, L500.2500 ####[facility] [address] [place], [address] T PROT 6.9 g/dL Normal 5.9-8.4 [facility] Comment on above: Performed By: #### L 500.3400, L501.2450, L100.0100, L500.2500 ####[facility] [address] [place], [address] Lymphocytes Auto (Unsp spec) [#/Vol]Ordered By: Theo Pozo on 12-12-2024 Lymphocytes (Bld) [#/Vol] 2.26 10*3/uL 0.83-4.51 [facility] Lymphocytes/100 WBC Auto (Un sp spec)Ordered By: Theo Pozo on 12-12-2024 Lymphocytes/100 WBC (Bld) 35.0 % 19-41 [facility] MCV (mean corpuscular volume ) determinationOrdered By: Theo Pozo on 12-12-2024 MCV (RBC) [Entitic vol] 89.1 fL 81-99 [facility] Mean corpuscular hemoglobin (MCH) determinationOrdered By: Theo oPzo on 12-12-2024 MCH (RBC) [Entitic mass] 30.1 pg 27.0-32.0 [facility] Mean corpuscular hemoglobin concentration (MCHC) determinationOrdered By: Theo Pozo on 12-12-2024 MCHC (RBC) [Mass/Vol] 33.8 g/dL 32-36 [facility] Mean platelet volume determi nationOrdered By: Theo Pozo on 12-12-2024 Platelet mean volume (Bld) [Entitic vol] 11.4 fL 6.2-12.0 [facility] Microscopic analysis of urin e for red blood cells (RBC)Ordered By: Theo Pozo on 12-12-2024 Microscopic analysis of urine for red blood cells (RBC) 0 SEEN /hpf 0-5 [facility] Urine RBC 0 SEEN /hpf 0-5 [facility] Monocyte percentageOrdered B y: Theo Pozo on 12-12-2024 Monocytes/100 WBC (Bld) 10.1 % High 0-10 [facility] Mucus LM Ql (Urine sed)Order ed By: Theo Pozo on 12-12-2024 Mucus Ql (Urine sed) 2+ /hpf [facility] Neutrophil percentageOrdered By: Theo Pozo on 12-12-2024 Neutrophils/100 WBC (Bld) 52.9 % 47-70 [facility] Nitrite Test strip Ql (U)Ord ered By: Theo Pozo on 12-12-2024 Nitrite Ql (U) Negative Negative [facility] Nucleated red blood cell per centageOrdered By: Theo Pozo on 12-12-2024 Nucleated RBC/100 WBC (Bld) [Ratio] 0 % 0-5 [facility] Platelet countOrdered By: Russ Pozo on 12-12-2024 Platelets (Bld) [#/Vol] 279 10*3/uL 150-450 [facility] Potassium (Unsp spec) [Mass/ Vol]Ordered By: Theo Pozo on 12-12-2024 Potassium [Moles/Vol] 3.7 mmol/L 3.3-5.1 [facility] Potassium measurement (mass/ volume)Ordered By: Theo Pozo on 12-12-2024 Potassium (Unsp spec) [Mass/Vol] 3.7 mmol/L 3.3-5.1 [facility] ,Urineon 12-12-2024 Beta HCG ( test) Ql (U) Negative Normal [facility] Comment on above: Result Comment: Very dilute urine specimens, as indicated by a low specific gravity, may not contain teleservices representative levels of hCG. If is still suspected, a first morning urine specimen should be collected 48 hours later and tested. Performed By: #### L 400.0001, L400.7600 ####[facility] [id number] [place], [address] Protein Test strip Ql (U)Ord ered By: Theo Pozo on 12-12-2024 Protein Ql (U) 30 mg/dl High Negative [facility] RBC Auto (Bld) [#/Vol]Ordere d By: Theo Pozo on 12-12-2024 RBC (Bld) [#/Vol] 4.48 10*6/uL 4.2-5.4 [facility] Serum creatinine measurement (mass/volume)Ordered By: Theo Pozo on 12-12-2024 Creatinine [Mass/Vol] 0.75 mg/dL 0.70-1.20 [facility] Serum globulin measurementOr dered By: Theo Pozo on 12-12-2024 Globulin (S) [Mass/Vol] 2.3 g/dL 2.2-4.2 [facility] Serum glucose measurement (m ass/volume)Ordered By: Theo Pozo on 12-12-2024 Glucose [Mass/Vol] 82 mg/dL 70-99 [facility] Serum or plasma alanine eli otransferase (ALT) measurementOrdered By: Theo Pozo on 12-12-2024 ALT [Catalytic activity/Vol] 10 U/L <35 [facility] Serum or plasma albumin guicho urement (mass/volume)Ordered By: Theo Pozo on 12-12-2024 Albumin [Mass/Vol] 4.6 g/dL 3.5-5.0 [facility] Serum or plasma alkaline krishan sphatase measurementOrdered By: Theo Pozo on 12-12-2024 ALP [Catalytic activity/Vol] 55 U/L 35-104 [facility] Serum or plasma calcium guicho urement (mass/volume)Ordered By: Theo Pozo on 12-12-2024 Calcium [Mass/Vol] 9.3 mg/dL 7.6-11.0 [facility] Serum or plasma urea nitroge n measurement (mass/volume)Ordered By: Theo Pozo on 12-12-2024 Urea nitrogen [Mass/Vol] 11 mg/dL 4-19 [facility] Sodium levelOrdered By: Malia Pozo on 12-12-2024 Sodium [Moles/Vol] 140 mmol/L 133-145 [facility] Squamous epithelial cells de tection in urine sediment by light microscopyOrdered By: Theo Pozo on 12-12-2024 Epithelial cells.squamous LM Ql (Urine sed) 0-5 SEEN /hpf 5-10 [facility] Total proteinOrdered By: Alyson Pozo on 12-12-2024 Protein [Mass/Vol] 6.9 g/dL 5.9-8.4 [facility] Urinalysis, Completeon 12-12 RBC 0 SEEN Normal 0-5 [facility] Comment on above: Order Comment: CLEAN CATCH Performed By: #### L 400.0001, L400.7600 ####[facility] [id number] [place], [address] Urine blood detectionOrdered By: Theo Pozo on 12-12-2024 Urine Occult Blood Negative Negative [facility] Urine clarityOrdered By: Alyson Pozo on 12-12-2024 Clarity (U) Clear Clear [facility] Urine color determinationOrd ered By: Theo Pozo on 12-12-2024 Color (U) Yellow Yellow [facility] Urine glucose detectionOrder ed By: Theo Pozo on 12-12-2024 Glucose Ql (U) Normal mg/dl Normal [facility] Urine leukocyte esterase det ection by dipstickOrdered By: Theo Pozo on 12-12-2024 Leukocyte esterase Test strip Ql (U) Negative Negative [facility] Urine pHOrdered By: Theo aguillon on 12-12-2024 pH (U) 5.0 [pH] 5.0 - 8.0 [facility] Urine testOrdered By: hTeo Pozo on 12-12-2024 HCG ( test) Ql (U) Negative [facility] Comment on above: Very dilute urine sp ecimens, as indicated by a low specificgravity, may not contain teleservices representative levels of hCG. If is still suspected, a first morning urinespecimen should be collected 48 hours later and tested. Urine sediment bacteria coun t by microscopy (number/high power field)Ordered By: Theo Pozo on 12-12-2024 Bacteria LM.HPF (Urine sed) [#/Area] 0 /[HPF] None Seen [facility] Urine specific gravity measu rementOrdered By: Theo Pozo on 12-12-2024 Specific gravity (U) [Rel density] 1.030 1.002-1.030 [facility] Urine urobilinogen measureme ntOrdered By: Theo Pozo on 12-12-2024 Urobilinogen Ql (U) Normal mg/dl Normal [facility] Urobilinogen Ql (U)Ordered B y: Theo Pozo on 12-12-2024 Urine Urobilinogen Normal mg/dl Normal [facility] White blood cell (WBC) count Ordered By: Theo Pozo on 12-12-2024 WBC (Bld) [#/Vol] 6.5 10*3/uL 4.4-11.0 [facility] White blood cell countOrdere d By: Theo Pozo on 12-12-2024 Urine WBC 0 SEEN /hpf 0-5 [facility] White blood cell count 0 SEEN /hpf 0-5 [facility] Chlamydia/GC CALLUM aptimaon CHLAMY,NUC ACID Negative Normal Negative [facility] Comment on above: Performed By: #### L 7000.1800 #### [facility] [address] [place], [address] GC BY NUC ACID Negative Normal Negative [facility] Comment on above: Result Comment: Perf ormed at: =G - [facility] [address] [id number] Lacrosse Player: Yi Pelletier MD, Phone: [phone] Performed By: #### L 7000.1800 #### [facility] [address] [place], [address] C. trachomatis rRNA CALLUM+prob e Ql (Unsp spec)Ordered By: Marixa Krueger on 08-19-2024 Chlamydia DNA (CALLUM) Negative Negative [facility] Neisseria gonorrhoeae nuclei c acid detection by amplified probe techniqueOrdered By: Marixa Krueger on 08-19-2024 N. gonorrhoeae DNA CALLUM+probe Ql (Unsp spec) Negative Negative [facility] Comment on above: Performed at: =[facility] [id number] Director: Yi Pelletier MD, Phone: [phone] No Panel Informationon 08-19 POC Trichomonas (Rapid) Negative [facility] Barrel Rifler Button Office Visit Reporton 08-19-2024 Barrel Rifler Button Office Visit Report [facility] [address], [address] [place] [address] OFFICE VISIT Date of Service: 08/19/24 MR#: [id number] Acct: [id number] Name: DUNG HULL Rep #: [id number] : 2000 Provider: CHRISTAL mohamud Age/Sex: 24/F [place] [facility] [place]: Signed Intake Vital Signs 08/15/23 08:59 06/11/24 13:16 08/19/24 09:40 08/19/24 09:44 Height 5 ft 2 in 5 ft 2 in 5 ft 2 in 5 ft 2 in Weight: 115 lb 6 oz BMI 21.1 BP 116/74 Intake Visit Reasons: Annual (CLASSROOM COORDINATOR) Chief Complaint: Annual Industry Segment Specialist Required: No Is patient in pain?: No Allergies latex Allergy (Verified 08/19/24 09:39) Rash Medications ???Medication ???Instructions ???Recorded ???Confirmed ???Type levonorgestrel 20.4 mcg/24 hr (up 1 device intrauterine ONCE 08/09/21 08/19/24 History to 8 yrs) 52 mg intrauterine device (Liletta) fluticasone propionate 50 1 spray intranasal DAILY #16 grams 09/16/22 08/19/24 Rx mcg/actuation nasal spray,suspension (Flonase Allergy Relief) estradiol 2 mg tablet 2 mg PO QDAY #30 tabs 06/11/24 08/19/24 Rx Is last menstrual period known: No Post menopausal: No Patient : No : No Control Method: Liletta Nurse's Note: No menses with IUD. PFSH Surgical History H/O section Family History Grandfather Heart disease Unknown Thyroid cancer Social History current occupational status: employed current occupation: [employer] Smoking Status: Current every day smoker tobacco type: e-cigarettes alcohol intake: never substance use type: does not use caffeine: No what type of physical activity do you participate in: walking frequency: 5-6 times per week seatbelt use: always History 1 Elective abortions Hx Para 1 Spontaneous abortions Hx # Term Pregnancies Ectopic pregnancies Hx # Pregnancies Multiple births # of living children 1 Past Pregnancies Del. Date Name GA/Weeks Outcome Route Bth Weight Infant Gen Labor Lgth Anesthesia Del [facility] Provider FOB 02/09/20 Willie 41 live - full term 8lbs 12oz Male epidural [facility] Delivery Date: 02/09/20 Last Updated by: Debby Adams [facility] HPI Encounter for routine gynecological examination Details: DUNG HULL is a 24 year old who presents for annual exam. Denies concerns. Same partner but consents to STD swabs. Declines serum STD testing. No menses with liletta Last PAP: 2022 History of abnormal PAP: no ROS Const Constitutional: Denies fatigue, weight gain or weight loss Cardio Card: Denies chest pain Resp Resp: Denies cough or dyspnea on exertion GI GI: Denies abdominal pain, bloating, change in stool character, constipation or vomiting : Reports as per HPI; Denies difficulty voiding, pelvic pain, urinary frequency, urinary incontinence, urinary urgency, vaginal discharge or vaginal pruritus Exam Const General: cooperative, healthy appearing, no acute distress and well developed Orientation: alert, oriented to person and oriented to place [facility] Head: normal to inspection Neck Neck: normal visual inspection Thyroid: thyroid normal Lymphatic: no lymphadenopathy noted Chest Breast inspection: normal inspection of the breasts and normal inspection of the axillae Breast palpation: normal palpation of the breasts, normal palpation of the axillae and no axillary lymphadenopathy Resp Effort Inspection: normal respiratory effort GI Palpation: soft, no masses and nontender Rectal Exam: deferred External Female Exam: normal external appearance and normal appearance of the urethra Urethra: normal appearance of the urethra and normal palpation Speculum Exam - Vagina: normal appearance of the vagina and normal vaginal discharge Speculum Exam - Cervix: normal appearance of the cervix Bimanual Exam- Vagina Uterus: normal bimanual exam, uterine size normal, uterine shape normal and non-tender Bimanual Exam- Adnexa, other: normal adnexae, no masses, normal and non-tender Pelvic Support: normal Neuro General: patient alert and patient oriented x3 Psych Affect: normal affect Coding Level of Care Code Off vis,est,prev 18-39yrs Diagnoses Encounter for gynecological examination without abnormal finding Z01.419 Gynecological examination findings: abnormal findings ABSENT Possible exposure to STD Z20.2 Ovarian cyst, left N83.202 Assessment and Plan Assessment and Plan (1) Encounter for routine gynecological examination: Qualifiers: Gynecological examination findings: abnormal findings ABSENT Qualified Code(s): Z01.419 - Enc (more content not included)... Normal [facility] Pelvic w/ Transvaginalon Pelvic w/ Transvaginal [facility] Imaging Services [address] [place] [id number] Pelvic w/ Transvaginal MR#: [id number] Acct: [id number] Name: DUNG HULL Rep #: [id number] : 2000 F 24 From: Arslan Catalan DO PCP: Dr. Jacey Domínguez MD Status: REG CLI Study: Pelvic w/ Transvaginal Date of Exam: 06/19/24 Exam# [id number] Ordering Dr: Marixa Krueger NP [employer]ATOR -C [id number] INDICATION: pain EXAMINATION: Ultrasound US Pelvis Non OB Complete With Transvaginal Imaging TECHNIQUE: Transabdominal and transvaginal pelvic ultrasound was performed. Grayscale, spectral waveform, and color flow Doppler evaluation of the adnexa. COMPARISON: FINDINGS: UTERUS: Retroverted. The uterus measures 7.6 x 3.1 x 6.6 cm. There is no uterine mass. The endometrial stripe measures 3 mm in AP diameter with an IUD in place RIGHT OVARY: 3.3 x 1.7 x 2.2 cm. Non-enlarged, normal echogenicity. There is normal arterial inflow and venous outflow present in the right ovary. LEFT OVARY: 3.2 x 3.0 x 1.9 cm. 1.5 cm complex cystic nodule. There is normal arterial inflow and venous outflow present in the left ovary. FREE FLUID: Mild. US/Pelvic w/ Transvaginal IMPRESSION: Complex left ovarian cystic nodule. Mild pelvic fluid. IUD in place. Electronically Signed: Arslan Catalan DO at 23:01 EDT Reading Location ID and State: [facility] / [place] Tel [phone], Service support , CC: CHRISTAL Krueger; Dr. Jacey Domínguez MD Sound Printer: Signed Normal [facility] Barrel Rifler Button Office Visit Reporton 06-11-2024 Barrel Rifler Button Office Visit Report [facility] [address], [address] [place] [address] OFFICE VISIT Date of Service: 06/11/24 MR#: [id number] Acct: [id number] Name: DUNG HULL Rep #: [id number] : 2000 Provider: CHRISTAL mohamud Age/Sex: 24/F [place] [facility] [place]: Signed Intake Vital Signs 11/03/23 13:06 06/11/24 13:11 06/11/24 13:16 Height 5 ft 2 in 5 ft 2 in 5 ft 2 in Weight: 119 lb 6 oz BMI 21.8 BP 102/68 Intake Visit Reasons: IUD CHECK/POSSIBLE CYST ON OVARY Chief Complaint: IUD check/poss ovarian cyst Industry Segment Specialist Required: No Is patient in pain?: No Allergies latex Allergy (Verified 06/11/24 13:09) Rash Medications ???Medication ???Instructions ???Recorded ???Confirmed ???Type levonorgestrel 20.4 mcg/24 hr (up 1 device intrauterine ONCE 08/09/21 06/11/24 History to 8 yrs) 52 mg intrauterine device (Liletta) fluticasone propionate 50 1 spray intranasal DAILY #16 grams 09/16/22 06/11/24 Rx mcg/actuation nasal spray,suspension (Flonase Allergy Relief) naproxen 500 mg tablet 500 mg PO Q12H #30 tabs 09/06/23 06/11/24 Rx estradiol 2 mg tablet 2 mg PO QDAY #30 tabs 06/11/24 06/11/24 Rx Is last menstrual period known: No Post menopausal: No Patient : No : No [facility] Surgical History H/O section Family History Grandfather Heart disease Unknown Thyroid cancer Social History current occupational status: employed current occupation: [employer] Smoking Status: Current every day smoker tobacco type: e-cigarettes alcohol intake: never substance use type: does not use caffeine: No what type of physical activity do you participate in: walking frequency: 5-6 times per week seatbelt use: always HPI IUD CHECK/POSSIBLE CYST ON OVARY Details: DUNG HULL is a 24 year old who presents for pelvic pain. States started just after liletta IUD replaced in Aug 2023. She had pelvic US in December that confirmed complex 3cm left ovarian cyst that was stable on repeat US in January 2024 and IUD properly placed. States that pain has significantly increased causes her to have nausea/vomiting. She has had same sexual partner X 4 years and negative STD testing Jul 2023. History 1 Elective abortions Hx Para 1 Spontaneous abortions Hx # Term Pregnancies Ectopic pregnancies Hx # Pregnancies Multiple births # of living children 1 Past Pregnancies Del. Date Name GA/Weeks Outcome Route Bth Weight Gen Labor Lgth Anesthesia Del Locatn Provider FOB 02/09/20 Willie 41 live - full term 8lbs 12oz Male epidural [facility] Delivery Date: 02/09/20 Last Updated by: Debby Adams Breech ROS Const Constitutional: Reports system reviewed and no additional complaints, except as documented Eyes Eyes: Reports system reviewed and no additional complaints, except as documented GI GI: Denies abdominal pain or change in bowel habits : Reports as per HPI Exam Const General: cooperative and no acute distress Orientation: oriented x3 General: bladder normal to palpation External Female Exam: normal external appearance and normal appearance of the urethra Urethra: normal appearance of the urethra Speculum Exam - Vagina: normal appearance of the vagina, normal vaginal discharge, no lesions and nontender Speculum Exam - Cervix: normal appearance of the cervix (IUD strings 2cm from OS) Bimanual Exam- Vagina Uterus: uterine size normal, bladder normal to palpation, uterine shape normal, uterine mobility normal and tender (slightly midline and to right) Bimanual Exam- Adnexa, other: normal adnexae, no masses and tender on the right Coding Level of Care Code Off vis,est,level 3 Diagnoses Pelvic pain R10.2 Ovarian cyst, left N83.202 Assessment and Plan Assessment and Plan (1) Pelvic pain: Status: Acute (2) Ovarian cyst, left: Status: Acute Orders: Orders Pelvic w/ Transvaginal Today N83.202 - Unspecified ovarian cyst, left side, R10.2 - Pelvic and perineal pain, Z30.431 - Encounter for routine checking of intrauterine contraceptive device Medications: New estradiol 2 mg PO QDAY 30 tabs 0RF Plan Pelvic US Cyst may have increased in size. 30 days add back estrogen for ovarian suppression RTO if symptoms persist, may need to try another form of contraception. 06/11/24 1343 Date Marixa Krueger NP [employer]-C Cosigner Signature: Date (if applicable) CC: Normal [facility] Cervical or vagninal specime n microscopic examination by cytology stain (reported asOrdered By: Marixa Krueger on 08-15-2023 Cytology report Cyto stain Doc (Cvx/Vag) Comment . [facility] Comment on above: The Pap smear is a s creening test designed to aid in thedetection of premalignant and malignant conditions of theuterine cervix. It is not a diagnostic procedure andshould not be used as the sole means of detecting cervicalcancer. Both false-positive and false-negative reports dooccur. Chlamydia trachomatis rRNA d etection by probe and target amplification methodOrdered By: Marixa Krueger on 08-15-2023 C. trachomatis rRNA CALLUM+probe Ql (Unsp spec) Negative Negative [facility] HIV 1 and HIV-2 antibody ass ay with HIV-1 p24 antigen detectionOrdered By: Marixa Krueger on 08-15-2023 HIV 1+2 Ab+HIV1 p24 Ag IA Ql Non-Reactive Nonreactive [facility] Laboratory - CytologyOrdered By: Marixa Krueger on 08-15-2023 Supervisor Nut Processing Cyto stain Nom (Cvx/Vag) [ID] Comment . [facility] Comment on above: Paige Shi, [facility] otechnologist (ASCP) Laboratory - Microbiology an d Antimicrobial susceptibilityOrdered By: Marixa Krueger on 08-15-2023 N. gonorrhoeae DNA CALLUM+probe Ql (Unsp spec) Negative Negative [facility] Comment on above: Performed at: =G - L [address] [id number] Director: Yi Pelletier MD, Phone: [phone] Laboratory - Miscellaneous t estsOrdered By: Marixa Krueger on 08-15-2023 Service comment (Unsp spec) [Interp] Comment . [facility] Comment on above: This liquid based Th inPrep(R) pap test was screened withthe use of an image guided system. Service comment (Unsp spec) [Interp] . . [facility] No Panel InformationOrdered By: Marixa Krueger on 08-15-2023 Human Papillomavirus Screen Comment . [facility] Comment on above: The HPV DNA reflex c riteria were not met with this specimenresult therefore, no HPV testing was performed.Performed at: [facility] [address] [place], [place] [id number] Director: Brandt Rich MD, Phone: [phone] at: WB - [facility] [id number] Director: Yi Pelletier MD, Phone: [phone] Pathology report final diagnosis Narrative Comment . [facility] Comment on above: NEGATIVE FOR INTRAEP ITHELIAL LESION OR MALIGNANCY.CELLULAR CHANGES ASSOCIATED WITH INFLAMMATION ARE PRESENT. Hepatitis C Antibody Non-Reactive Nonreactive [facility] Comment on above: Non Reactive: < 0.8 Equivocal: >/= 0.8 to < 1.0 Reactive: >/= 1.0The [facility] recommends that a reactive/equivocal HCV antibody result be followed up by the HCV Nucleic Acid Amplificationtest (607272) Herpes Simplex Virus I IgG Antibody < 0.91 index 0.00-0.90 [facility] Comment on above: Negative <0.91 Equiv ocal 0.91 - 1.09 Positive >1.09 Note: Negative indicates no antibodies detected to HSV-1. Equivocal may suggest early infection. If clinically appropriate, retest at later date. Positive indicates antibodies detected to HSV-1. No Panel Informationon 08-15 POC Trichomonas (Rapid) Negative [facility] Serum Treponema species anti body detectionOrdered By: Marixa Krueger on 08-15-2023 Treponema sp Ab Ql (S) Non-Reactive [facility] Serum herpes simplex virus 2 antibody assay by immunoassay (units/volume)Ordered By: Marixa Krueger on 08-15-2023 HSV 2 Ab IA Qn (S) < 0.91 index 0.00-0.90 [facility] Comment on above: Negative <0.91 Equiv ocal 0.91 - 1.09 Positive >1.09 HSV-2 Antibody Interpretation: Negative indicates no detectable antibodies to HSV-2 were found. If recent exposure is suspected, retest in 4-6 weeks. Equivocal samples should be retested in 4-6 weeks. Positive indicates the presence of detectable IgG antibody to HSV-2. False positive results may occur. Repeat testing, or testing by a different method, may be indicated in some settings (e.g. patients with low likelihood of HSV infection). If clinically appropriate, retest 4-6 weeks later.Performed at: [facility] [address] [id number] Director: Jersey La PhD, Phone: [phone] C-REACTIVE PROTEIN (CRP)on 0 02-11-2023 CRP [Mass/Vol] 0.5 mg/dL <0.9 mg/dL [facility] Comprehensive metabolic 2000 panelon 02-11-2023 Albumin [Mass/Vol] 4.7 g/dL 3.9 - 4.9 g/dL [facility] ALP [Catalytic activity/Vol] 54 U/L 34 - 123 U/L [facility] ALT [Catalytic activity/Vol] 15 U/L 7 - 38 U/L [facility] Anion gap [Moles/Vol] 13 mmol/L 9 - 18 mmol/L [facility] AST [Catalytic activity/Vol] 22 U/L 13 - 35 U/L [facility] Bilirubin [Mass/Vol] 0.4 mg/dL 0.2 - 1 .3 mg/dL [facility] Calcium [Mass/Vol] 9.9 mg/dL 8.5 - 10. 2 mg/dL [facility] Chloride [Moles/Vol] 103 mmol/L 97 - 10 5 mmol/L [facility] CO2 [Moles/Vol] 22 mmol/L 22 - 30 mmol/L [facility] Creatinine [Mass/Vol] 0.74 mg/dL 0.58 - 0.96 mg/dL [facility] Estimated Glomerular Filtration Rate 119 mL/min/1.73m >=60 mL/min/1.73m [facility] Glucose [Mass/Vol] 76 mg/dL 74 - 99 mg/dL [facility] Potassium [Moles/Vol] 4.1 mmol/L 3.7 - 5.1 mmol/L [facility] Protein [Mass/Vol] 7.2 g/dL 6.3 - 8.0 g/dL [facility] Sodium [Moles/Vol] 138 mmol/L 136 - 144 mmol/L [facility] Urea nitrogen [Mass/Vol] 11 mg/dL 7 - 21 mg/d L [facility] ESR Westergren method (Bld) [Velocity]on 02-11-2023 ESR (Bld) [Velocity] 5 mm/h 0 - 20 mm/hr Cl [facility] FERRITIN BLDon 02-11-2023 Ferritin [Mass/Vol] 64.9 ng/mL 14.7 - 2 05.1 ng/mL [facility] Iron and Iron binding capaci ty panelon 02-11-2023 Iron [Mass/Vol] 62 ug/dL 41 - 186 ug/dL [facility] Iron binding capacity [Mass/Vol] 337 ug/dL 232 - 386 ug/dL [facility] Iron/TIBC [Molar ratio] 18.4 % 15.0 - 57.0 % [facility] T4 FREE/FREE THYROXon 2022 Free T4 [Mass/Vol] 1.3 ng/dL 0.9 - 1.7 ng/dL [facility] TSH BLDon 02-11-2023 TSH Qn 0.691 m[IU]/L 0.510 - 4.300 mIU/L [facility] CBC W Auto Differential pane l (Bld)on 02-10-2023 Basophils (Bld) [#/Vol] 0.04 10*3/uL <0.11 k/uL [facility] Basophils/100 WBC (Bld) 0.6 % [facility] Differential cell count method Nom (Bld) Auto [facility] Eosinophils (Bld) [#/Vol] 0.09 10*3/uL <0.46 k/uL [facility] Eosinophils/100 WBC (Bld) 1.3 % [facility] Erythrocyte distribution width (RBC) [Ratio] 12.1 % 11.5 - 15.0 % [facility] Hematocrit (Bld) [Volume fraction] 39.5 % 36.0 - 46.0 % [facility] Hemoglobin (Bld) [Mass/Vol] 12.4 g/dL 11.5 - 15.5 g/dL [facility] Immature granulocytes (Bld) [#/Vol] <0.10 k/uL [facility] Immature granulocytes/100 WBC (Bld) 0.1 % [facility] Lymphocytes (Bld) [#/Vol] 2.25 10*3/uL 1.00 - 4.00 k/uL [facility] Lymphocytes/100 WBC (Bld) 31.9 % [facility] MCH (RBC) [Entitic mass] 28.5 pg 26. 0 - 34.0 pg [facility] MCHC (RBC) [Mass/Vol] 31.4 g/dL 30.5 - 36.0 g/dL [facility] MCV (RBC) [Entitic vol] 90.8 fL 80.0 - 100.0 fL [facility] Monocytes (Bld) [#/Vol] 0.72 10*3/uL <0.87 k/uL [facility] Monocytes/100 WBC (Bld) 10.2 % [facility] Neutrophils (Bld) [#/Vol] 3.95 10*3/uL 1.45 - 7.50 k/uL [facility] Neutrophils/100 WBC (Bld) 55.9 % [facility] Nucleated RBC (Bld) [#/Vol] <0.01 k/uL [facility] Nucleated RBC/100 WBC (Bld) [Ratio] 0.0 /100 WBC [facility] Platelet mean volume (Bld) [Entitic vol] 11.7 fL 9.0 - 12.7 fL [facility] Platelets (Bld) [#/Vol] 261 10*3/uL 150 - 400 k/uL [facility] RBC (Bld) [#/Vol] 4.35 10*6/uL 3.90 - 5.2 0 m/uL [facility] WBC (Bld) [#/Vol] 7.06 10*3/uL 3.70 - 11. 00 k/uL [facility] UA DIP, URINE (POC)on 2022 BILIRUBIN UA (POCT) Negative Negative [facility] CLARITY UA (POCT) Clear [facility] COLOR UA (POCT) Dark yellow [facility] GLUCOSE UA (POCT) Negative Negative mg/dL [facility] HEMOGLOBIN/BLOOD UA (POCT) Small Abnormal Negative [facility] KETONE UA (POCT) Negative Negative mg/dL [facility] LEUKOCYTES UA (POCT) Negative Negative [facility] NITRITE UA (POCT) Negative Negative [facility] PH UA (POCT) 5.0 4.5 - 8.0 [facility] Protein Ql (U) Negative Negative mg/dL [facility] SPECIFIC GRAVITY UA (POCT) >=1.030 1.005 - 1.030 [facility] UROBILINOGEN UA (POCT) 0.2 E.U./dL Dilma l E.U./dL [facility] Basophil percentageon 2021 C. trachomatis DNA CALLUM+probe Ql (Unsp spec) Negative Negative [facility] Work Phone: Neisseria gonorrhoeae detect ion by PCRon 08-10-2022 N. gonorrhoeae DNA CALLUM+probe Ql (Cervical mucus) Negative Negative [facility] Work Phone: Comprehensive metabolic 2000 panelon 02-28-2022 Albumin [Mass/Vol] 4.5 g/dL 3.9 - 4.9 g/dL [facility] ALP [Catalytic activity/Vol] 62 U/L 34 - 123 U/L [facility] ALT [Catalytic activity/Vol] 8 U/L 7 - 38 U/L [facility] Anion gap [Moles/Vol] 9 mmol/L 9 - 18 mmol/L [facility] AST [Catalytic activity/Vol] 14 U/L 13 - 35 U/L [facility] Bilirubin [Mass/Vol] 0.4 mg/dL 0.2 - 1 .3 mg/dL [facility] Calcium [Mass/Vol] 9.5 mg/dL 8.5 - 10. 2 mg/dL [facility] Chloride [Moles/Vol] 104 mmol/L 97 - 10 5 mmol/L [facility] CO2 [Moles/Vol] 24 mmol/L 22 - 30 mmol/L [facility] Creatinine [Mass/Vol] 0.68 mg/dL 0.58 - 0.96 mg/dL [facility] Estimated Glomerular Filtration Rate 129 mL/min/1.73m >=60 mL/min/1.73m [facility] Glucose [Mass/Vol] 90 mg/dL 74 - 99 mg/dL [facility] Potassium [Moles/Vol] 4.2 mmol/L 3.7 - 5.1 mmol/L [facility] Protein [Mass/Vol] 6.7 g/dL 6.3 - 8.0 g/dL [facility] Sodium [Moles/Vol] 137 mmol/L 136 - 144 mmol/L [facility] Urea nitrogen [Mass/Vol] 8 mg/dL 7 - 21 mg/d L [facility] No Panel Informationon 02-28 [facility] Vital Signs Date Time Vital Sign Value Performing Clinician Facility 04-30-2025 16:13-0400 Body temperature 98 [degF] No Primary Care Physician [facility] 04-30-2025 16:13-0400 Diastolic blood pressure 58 mm[Hg] No Primary Care Physician [facility] 04-30-2025 16:13-0400 Heart rate 71 /min No Primary Care Physician [facility] 04-30-2025 16:13-0400 Respiratory rate 16 /min No Primary Care Physician [facility] 04-30-2025 16:13-0400 SaO2% (BldA) [Mass fraction] 96 % No Primary Care Physician [facility] 04-30-2025 16:13-0400 Systolic blood pressure 98 mm[Hg] No Primary Care Physician [facility] 04-30-2025 10:40-0400 Body height 157.48 cm No Primary Care Physician [facility] 04-30-2025 10:40-0400 Body mass index (BMI) [Ratio] 23.3 kg/m2 No Primary Care Physician [facility] 04-30-2025 10:40-0400 Body weight 58 kg No Primary Care Physician [facility] 04-21-2025 09:53-0400 Body height 157.48 cm No Primary Care Physician [facility] 04-21-2025 09:53-0400 Body mass index (BMI) [Ratio] 23.6 kg/m2 No Primary Care Physician [facility] 04-21-2025 09:53-0400 Body temperature 97.2 [degF] No Primary Care Physician [facility] 04-21-2025 09:53-0400 Body weight 58.51 kg No Primary Care Physician [facility] 04-21-2025 09:53-0400 Diastolic blood pressure 75 mm[Hg] No Primary Care Physician [facility] 04-21-2025 09:53-0400 Heart rate 77 /min No Primary Care Physician [facility] 04-21-2025 09:53-0400 Respiratory rate 18 /min No Primary Care Physician [facility] 04-21-2025 09:53-0400 SaO2% (BldA) [Mass fraction] 99 % No Primary Care Physician [facility] 04-21-2025 09:53-0400 Systolic blood pressure 116 mm[Hg] No Primary Care Physician [facility] 04-10-2025 11:32-0400 Body temperature 99.1 [degF] No Primary Care Physician [facility] 04-10-2025 11:32-0400 Diastolic blood pressure 79 mm[Hg] No Primary Care Physician [facility] 04-10-2025 11:32-0400 Heart rate 68 /min No Primary Care Physician [facility] 04-10-2025 11:32-0400 Respiratory rate 16 /min No Primary Care Physician [facility] 04-10-2025 11:32-0400 SaO2% (BldA) [Mass fraction] 100 % No Primary Care Physician [facility] 04-10-2025 11:32-0400 Systolic blood pressure 117 mm[Hg] No Primary Care Physician [facility] 04-10-2025 09:03-0400 Body height 157.48 cm No Primary Care Physician [facility] 04-10-2025 09:03-0400 Body mass index (BMI) [Ratio] 23.4 kg/m2 No Primary Care Physician [facility] 04-10-2025 09:03-0400 Body weight 58.19 kg No Primary Care Physician [facility] 12-17-2024 09:42-0400 Body height 157.48 cm No Primary Care Physician [facility] 12-17-2024 09:42-0400 Body mass index (BMI) [Ratio] 23.1 kg/m2 No Primary Care Physician [facility] 12-17-2024 09:42-0400 Body weight 57.37 kg No Primary Care Physician [facility] 12-17-2024 09:42-0400 Diastolic blood pressure 68 mm[Hg] No Primary Care Physician [facility] 12-17-2024 09:42-0400 Heart rate 73 /min No Primary Care Physician [facility] 12-17-2024 09:42-0400 Respiratory rate 16 /min No Primary Care Physician [facility] 12-17-2024 09:42-0400 SaO2% (BldA) [Mass fraction] 98 % No Primary Care Physician [facility] 12-17-2024 09:42-0400 Systolic blood pressure 94 mm[Hg] No Primary Care Physician [facility] 12-12-2024 16:15-0400 Body temperature 98.6 [degF] Dr. Jacey Domínguez MD Work Phone: 8(140)068-272372 [place] [address] 12-12-2024 16:15-0400 Diastolic blood pressure 68 mm[Hg] Dr. Jacey Domínguez MD Work Phone: 2(018)461-386372 [place] [address] 12-12-2024 16:15-0400 Heart rate 67 /min Dr. Jacey Domínguez MD Work Phone: 5(128)703-966872 [place] [address] 12-12-2024 16:15-0400 Respiratory rate 15 /min Dr. Jacey Domínguez MD Work Phone: 5(162)218-585072 [place] [address] 12-12-2024 16:15-0400 SaO2% (BldA) [Mass fraction] 99 % Dr. Jacey Domínguez MD Work Phone: 5(472)669-536472 [place] [address] 12-12-2024 16:15-0400 Systolic blood pressure 108 mm[Hg] Dr. Jacey Domínguez MD Work Phone: 0(286)980-275372 [place] [address] 12-12-2024 13:31-0400 Body height 157.[address] Jacey Domínguez MD Work Phone: 8(602)689-726372 [place] [address] 12-12-2024 13:31-0400 Body mass index (BMI) [Ratio] 22.6 kg/m2 Dr. Jacey Domínguez MD Work Phone: 2(619)041-340772 [place] [address] 12-12-2024 13:31-0400 Body weight 56.[address] Jacey Domínguez MD Work Phone: 5(729)032-659172 [place] [address] 08-19-2024 09:40-0500 Body mass index (BMI) [Ratio] 21.1 kg/m2 Dr. Jacey Domínguez MD Work Phone: 4(741)050-548172 [place] [address] 08-19-2024 09:40-0500 Body weight 52.[address] Jacey Domínguez MD Work Phone: 7(718)652-943172 [place] [address] 08-19-2024 09:40-0500 Diastolic blood pressure 74 mm[Hg] Dr. Jacey Domínguez MD Work Phone: 5(254)043-569472 [place] [address] 08-19-2024 09:40-0500 Systolic blood pressure 116 mm[Hg] Dr. Jacey Domínguez MD Work Phone: 7(300)022-519672 [place] [address] 11-03-2023 13:06-0500 Body height 157.[address] Jacey Domínguez Work Phone: 4(194)573-724272 [place] [address] 11-03-2023 13:00-0500 Body mass index (BMI) [Ratio] 21.9 kg/m2 Dr. Jacey Domínguez Work Phone: 4(290)879-064272 [place] [address] 11-03-2023 13:00-0500 Body weight 56.[address] Jacey Domínguez Work Phone: 4(424)618-225272 [place] [address] 11-03-2023 13:00-0500 Diastolic blood pressure 71 mm[Hg] Dr. Jacey Domínguez Work Phone: 7(530)704-424672 [place] [address] 11-03-2023 13:00-0500 Systolic blood pressure 103 mm[Hg] Dr. Jacey Domínguez Work Phone: 3(226)318-324672 [place] [address] 08-15-2023 08:59-0500 Body height 157.[address] Jacey Domínguez Work Phone: 2(640)442-448472 [place] [address] 08-15-2023 08:54-0500 Body mass index (BMI) [Ratio] 21.7 kg/m2 Dr. Jacey Domínguez Work Phone: 4(523)667-692672 [place] [address] 08-15-2023 08:54-0500 Body weight 55.[address] Jacey Domínguez Work Phone: 4(150)913-121372 [place] [address] 08-15-2023 08:54-0500 Diastolic blood pressure 72 mm[Hg] Dr. Jacey Domínguez Work Phone: 2(369)106-939572 [place] [address] 08-15-2023 08:54-0500 Systolic blood pressure 110 mm[Hg] Dr. Jacey Domínguez Work Phone: [facility] 02-10-2023 14:51-0400 Body height 161 cm Kanchan Jones [employer] ENGINE[employer].INTERNATIONAL SOURCING MANAGER Work Phone: [facility] 02-10-2023 14:51-0400 Body temperature 98.71 [degF] Kanchan Jones [employer] ENGINEER.INTERNATIONAL SOURCING MANAGER Work Phone: [facility] 02-10-2023 14:51-0400 Body weight 57.04 kg Kanchan Jones [employer] ENGINEER.INTERNATIONAL SOURCING MANAGER Work Phone: [facility] 02-10-2023 14:51-0400 Diastolic blood pressure 60 mm[Hg] Kanchan Jones [employer] ENGINEER.INTERNATIONAL SOURCING MANAGER Work Phone: [facility] 02-10-2023 14:51-0400 Heart rate 92 /min Kanchan Jones [employer] ENGINEER.INTERNATIONAL SOURCING MANAGER Work Phone: [facility] 02-10-2023 14:51-0400 Respiratory rate 12 /min Kanchan Jones [employer] ENGINEER.INTERNATIONAL SOURCING MANAGER Work Phone: [facility] 02-10-2023 14:51-0400 Systolic blood pressure 102 mm[Hg] Kanchan Jones [employer] ENGINEER.INTERNATIONAL SOURCING MANAGER Work Phone: [facility] 09-16-2022 09:40-0500 Body height 160.[address] Jacey Domínguez Work Phone: [facility] Work Phone: 09-16-2022 09:40-0500 Body mass index (BMI) [Ratio] 23.9 kg/m2 Dr. Jacey Domínguez Work Phone: [facility] Work Phone: 09-16-2022 09:40-0500 Body temperature 98.4 [degF] Dr. Jacey Domínguez Work Phone: [facility] Work Phone: 09-16-2022 09:40-0500 Body weight 61.[address] Jacey Domínguez Work Phone: [facility] Work Phone: 09-16-2022 09:40-0500 Diastolic blood pressure 66 mm[Hg] Dr. Jacey Domínguez Work Phone: [facility] Work Phone: 09-16-2022 09:40-0500 Heart rate 70 /min Dr. Jacey Domínguez Work Phone: [facility] Work Phone: 09-16-2022 09:40-0500 Respiratory rate 18 /min Dr. Jacey Domínguez Work Phone: [facility] Work Phone: 09-16-2022 09:40-0500 SaO2% (BldA) [Mass fraction] 99 % Dr. Jacey Domínguez Work Phone: [facility] Work Phone: 09-16-2022 09:40-0500 Systolic blood pressure 106 mm[Hg] Dr. Jacey Domínguez Work Phone: [facility] Work Phone: 09-15-2022 14:57-0500 Body temperature 98.01 [degF] Eliseo Orion [employer] ENGINEER.INTERNATIONAL SOURCING MANAGER Work Phone: [facility] 09-15-2022 14:57-0500 Body weight 61.87 kg [facility] [employer] ENGINEER.INTERNATIONAL SOURCING MANAGER Work Phone: [facility] 09-15-2022 14:57-0500 Diastolic blood pressure 84 mm[Hg] Eliseo P[facility]bury [employer] ENGINEER.INTERNATIONAL SOURCING MANAGER Work Phone: [facility] 09-15-2022 14:57-0500 Heart rate 60 /min Eliseo P[facility]lebury [employer] ENGINEER.INTERNATIONAL SOURCING MANAGER Work Phone: [facility] 09-15-2022 14:57-0500 Respiratory rate 21 /min Eliseo Pendleada [employer] ENGINEER.INTERNATIONAL SOURCING MANAGER Work Phone: [facility] 09-15-2022 14:57-0500 SaO2% (BldA) [Mass fraction] 100 % Eliseo Sears [employer] ENGINEER.INTERNATIONAL SOURCING MANAGER Work Phone: [facility] 09-15-2022 14:57-0500 Systolic blood pressure 110 mm[Hg] Eliseo Sears [employer] ENGINEER.INTERNATIONAL SOURCING MANAGER Work Phone: [facility] 08-10-2022 08:12-0500 Body height 160.[address] Jacey Domínguez Work Phone: [facility] Work Phone: 08-10-2022 08:07-0500 Body mass index (BMI) [Ratio] 24.6 kg/m2 Dr. Jacey Domínguez Work Phone: [facility] Work Phone: 08-10-2022 08:07-0500 Body weight 63.[address] Jacey Domínguez Work Phone: [facility] Work Phone: 08-10-2022 08:07-0500 Diastolic blood pressure 68 mm[Hg] Dr. Jacey Domínguez Work Phone: [facility] Work Phone: 08-10-2022 08:07-0500 Systolic blood pressure 92 mm[Hg] Dr. Jacey Domígnuez Work Phone: [facility] Work Phone: 02-28-2022 10:37-0400 Body height 163 cm Lisa Britt [employer] ENGINEER.INTERNATIONAL SOURCING MANAGER Work Phone: [facility] 02-28-2022 10:37-0400 Body mass index (BMI) [Percentile] Per age and sex 74.9 % Lisa Britt [employer] ENGINEER.INTERNATIONAL SOURCING MANAGER Work Phone: [facility] 02-28-2022 10:37-0400 Body weight 64.86 kg Lisa Britt [employer] ENGINEER.INTERNATIONAL SOURCING MANAGER Work Phone: [facility] 02-28-2022 10:37-0400 Diastolic blood pressure 70 mm[Hg] Lisa Britt [employer] ENGINEER.INTERNATIONAL SOURCING MANAGER Work Phone: [facility] 02-28-2022 10:37-0400 Heart rate 68 /min Lisa Britt [employer] ENGINEER.INTERNATIONAL SOURCING MANAGER Work Phone: [facility] 02-28-2022 10:37-0400 SaO2% (BldA) [Mass fraction] 98 % Lisa Britt [employer] ENGINEER.INTERNATIONAL SOURCING MANAGER Work Phone: [facility] 02-28-2022 10:37-0400 Systolic blood pressure 106 mm[Hg] Lisa Britt [employer] ENGINEER.INTERNATIONAL SOURCING MANAGER Work Phone: [facility] 02-24-2022 13:27-0400 Body temperature 98.4 [degF] Kanchan Jones [employer] ENGINEER.INTERNATIONAL SOURCING MANAGER Work Phone: [facility] 02-24-2022 13:27-0400 Body weight 65.77 kg Kanchan Jones [employer] ENGINEER.INTERNATIONAL SOURCING MANAGER Work Phone: [facility] 02-24-2022 13:27-0400 Diastolic blood pressure 68 mm[Hg] Kanchan Jones [employer] ENGINEER.INTERNATIONAL SOURCING MANAGER Work Phone: [facility] 02-24-2022 13:27-0400 Heart rate 84 /min Kanchan Jones [employer] ENGINEER.INTERNATIONAL SOURCING MANAGER Work Phone: [facility] 02-24-2022 13:27-0400 Respiratory rate 12 /min Kanchan Jones [employer] ENGINEER.INTERNATIONAL SOURCING MANAGER Work Phone: [facility] 02-24-2022 13:27-0400 Systolic blood pressure 110 mm[Hg] Kanchan Jones [employer] ENGINEER.INTERNATIONAL SOURCING MANAGER Work Phone: [facility] Encounters Encounter Date Encounter Type Care Provider Facility Start: 04-30-2025 Non-patient / Non-visit Dr. Angélica ROSA -[facility] Start: 04-30-2025 ambulatory Jose Baron Facility:[facility] Start: 04-30-2025 End: 04-30-2025 Admission to same day surgery center Dr. Dmitry Nunn MD -[facility] Start: 04-30-2025 End: 04-30-2025 ambulatory No Primary Care Physician -[facility] Start: 04-23-2025 Encounter for other preprocedural examination Dmitry Nunn [facility] Start: 04-21-2025 End: 04-21-[address] Dmitry Nunn MD -[facility] Work Phone: Start: 04-21-2025 End: 04-21-2025 ambulatory No Primary Care Physician -[facility] Start: 04-10-2025 End: 04-10-2025 Emergency department patient visit No Primary Care Physician -Emergency Department Work Phone: Start: 2025 End: 2025 Patient encounter procedure Marc Maynard DO -[facility] Work Phone: Start: 2025 End: 2025 ambulatory No Primary Care Physician -[facility] Start: 02-20-2025 End: 02-20-2025 ambulatory No Primary Care Physician [facility] Work Phone: Start: 02-20-2025 End: 02-20-2025 Patient encounter procedure Marc Maynard DO -Cat Scan [facility] Work Phone: Start: 02-20-2025 End: 02-20-2025 ambulatory No Primary Care Physician Facility:[facility] Start: 02-17-2025 ambulatory No Primary Car e Physician Facility:[facility] Start: 02-11-2025 End: 02-11-2025 ambulatory No Primary Care Physician [facility] Work Phone: Start: 02-11-2025 End: 02-11-2025 Patient encounter procedure Marc Maynard DO -Nuclear Medicine [facility] Work Phone: Start: 02-11-2025 End: 02-11-2025 ambulatory Marc Maynard Facility:[facility] Start: 01-17-2025 End: 01-17-2025 Patient encounter procedure Marc Maynard DO -[facility] Work Phone: Start: 01-17-2025 End: 01-17-2025 ambulatory No Primary Care Physician [facility] Work Phone: Start: 01-17-2025 End: 01-17-2025 ambulatory Marc Friend Facility:[facility] Start: 01-10-2025 End: 01-10-2025 Patient encounter procedure Oneyda SIEGEL -Nuclear Medicine, [facility] Work Phone: Start: 01-10-2025 End: 01-10-2025 ambulatory No Primary Care Physician Facility:[facility] Start: 12-17-2024 End: 12-17-2024 Patient encounter procedure Oneyda SIEGEL -[facility] Work Phone: Start: 12-17-2024 End: 12-17-2024 ambulatory No Primary Care Physician Facility:[facility] Start: 12-16-2024 End: 12-16-2024 Telephone encounter No Pcp (Hist) [facility] Comment on above: No Show Letter #1 Start: 12-12-2024 End: 12-12-2024 Emergency department patient visit Dr. Jacey Domínguez MD Work Phone: -Emergency Department Work Phone: Start: 12-12-2024 End: 12-12-2024 ambulatory Facility:[facility] Start: 12-12-2024 End: 12-12-2024 Patient encounter procedure Raul WHITE Work Phone: [facility] Comment on above: RUQ pain (Primary Dx ) Start: 08-19-2024 End: 08-19-2024 Patient encounter procedure Marixa SIEGEL -Laboratory, Specimen Work Phone: Start: 08-19-2024 Encounter for gynecological examination (general) (routine) without abnormal findings Marixa Krueger NP [facility] Start: 08-19-2024 End: 08-19-2024 Patient encounter procedure Marixa SIEGEL -[facility] Work Phone: Start: 08-19-2024 End: 08-19-2024 Patient encounter status Marixa SIEGEL [facility] Start: 08-19-2024 End: 08-19-2024 ambulatory Jacey Seaman Facility:[facility] Start: 08-19-2024 End: 08-19-2024 ambulatory Marixa Krueger NP Facility:[facility] Start: 06-19-2024 End: 06-19-2024 ambulatory Jacey Domínguez Facility:[facility] Start: 06-11-2024 End: 06-11-2024 ambulatory Jaceyky Domínguez Facility:[facility] Start: 01-08-2024 End: 01-08-[address] Jacey Domínguez Work Phone: [facility] Work Phone: Start: 01-08-2024 End: 01-08-[address] Jacey Domínguez Work Phone: [facility]-Ultrasound, [facility] Work Phone: Start: 11-03-2023 End: 11-03-[address] Jacey Domínguez Work Phone: [facility] Work Phone: Start: 09-04-2023 End: 09-04-[address] Jacey Domínguez Work Phone: [facility] Work Phone: Start: 09-04-2023 End: 09-04-[address] Jacey Domínguez Work Phone: [facility] Ultrasound Work Phone: Start: 08-15-2023 End: 08-15-[address] Jacey Domínguez Work Phone: [facility] Work Phone: Start: 08-15-2023 End: 08-15-[address] Jacey Domínguez Work Phone: [facility] Work Phone: Start: 02-10-2023 End: 02-10-2023 Patient encounter procedure Kanchan Jones APRN.INTERNATIONAL SOURCING MANAGER Work Phone: [facility] Comment on above: Hair loss (Primary D x); Unexplained weight loss Start: 09-16-2022 End: 09-16-2022 Emergency department patient visit Dr. Jacey Domínguez Work Phone: [facility]-Emergency Department Start: 09-15-2022 End: 09-15-2022 Office outpatient visit 15 minutes Eliseo Sears APRN.INTERNATIONAL SOURCING MANAGER Work Phone: [facility] Comment on above: Headache, unspecifie d headache type (Primary Dx) Start: 08-10-2022 End: 08-10-[address] Jacey Domínguez Work Phone: [facility] Work Phone: Start: 08-10-2022 End: 08-10-[address] Jacey Domínguez Work Phone: [facility]-Laboratory, Specimen Start: 08-10-2022 End: 08-10-[address] Jacey Domínguez Work Phone: [facility] Start: 02-28-2022 End: 02-28-2022 Subsequent hospital visit by physician [facility] Work Phone: Radiology Comment on above: Nausea and vomiting, unspecified vomiting type [R11.2] Start: 02-28-2022 End: 02-28-2022 Patient encounter procedure Lisa Britt APRN.INTERNATIONAL SOURCING MANAGER Work Phone: Gastroenterology Comment on above: RUQ pain (Primary Dx ); Nausea and vomiting, unspecified vomiting type Start: 02-24-2022 End: 02-24-2022 Patient encounter procedure Kanchan Jones APRN.INTERNATIONAL SOURCING MANAGER Work Phone: [facility] [place] Comment on above: Nausea and vomiting, unspecified vomiting type (Primary Dx); Hematemesis with nausea Procedures Date Procedure Procedure Detail Performing Clinician Start: 04-30-2025 Total cholecystectom y and exploration of common bile duct No Primary Care Physician Start: 04-10-2025 Urnls dip stick/tabl et reagent auto microscopy No Primary Care Physician Start: 04-10-2025 Plain X-ray abdomen No Primary Care Physician Start: 04-10-2025 Estimated creatinine clearance No Primary Care Physician Start: 02-20-2025 Computed tomography of abdomen and pelvis with contrast No Primary Care Physician Start: 02-11-2025 Radionuclide gastric emptying study No Primary Care Physician Start: 01-17-2025 Antibody measurement No Primary Care Physician Comment on above: *Additional results available. Contact laboratory/see report*The atypical pANCA pattern has been observed in asignificant percentage of patients with ulcerative colitis,primary sclerosing cholangitis and autoimmune hepatitis. Start: 01-17-2025 Antibody to centrome re measurement No Primary Care Physician Start: 01-17-2025 Antibody to extracta ble nuclear antigen measurement No Primary Care Physician Comment on above: Test not performed Previous reported re sult: TNP AIEdited by: LAZARA on 01/22/25:2007 AMENDED REPORT 01/22/252007 CURTIS Ab previously reported as: Test not performed Start: 01-17-2025 Antibody to NINO-1 measurement No Primary Care Physician Comment on above: Test not performed Previous reported re sult: TNP AIEdited by: LAZARA on 01/22/25:2007 AMENDED REPORT 01/22/252007 ANTI-NINO previously reported as: Test not performed Start: 01-17-2025 Antibody to lupus La protein measurement No Primary Care Physician Comment on above: Test not performed Previous reported re sult: TNP AIEdited by: LAZARA on 01/22/25:2007 AMENDED REPORT 01/22/252007 Anti-SS-B previously reported as: Test not performed Start: 01-17-2025 Antibody to SS-A measurement No Primary Care Physician Comment on above: Test not performed Previous reported re sult: TNP AIEdited by: LAZARA on 01/22/25:2007 AMENDED REPORT 01/22/252007 Anti-SS-A previously reported as: Test not performed Start: 01-17-2025 Autoantibody measurement No Primary Care Physician Comment on above: Test not performed Previous reported re sult: TNP AIEdited by: LAZARA on 01/22/25:2007 AMENDED REPORT 01/22/252007 ANTICHROMATIN previously reported as: Test not performed Start: 01-17-2025 Chocolate RAST No Prima ry Care Physician Start: 01-17-2025 Endomysial antibody IgA level No Primary Care Physician Start: 01-17-2025 Food RAST No Primary Care Physician Start: 01-17-2025 Gliadin antibody, Ig A measurement No Primary Care Physician Comment on above: Negative 0 - 19 Weak Positive 20 - 30 Moderate to Strong Positive >30 Start: 01-17-2025 Gliadin antibody, Ig G measurement No Primary Care Physician Comment on above: Negative 0 - 19 Weak Positive 20 - 30 Moderate to Strong Positive >30 Start: 01-17-2025 Measurement of funga l antibody No Primary Care Physician Comment on above: Negative: <45 Equivo natacha: 45-50 Positive: >50 Start: 01-17-2025 Measurement of immunoglobulin A in serum specimen No Primary Care Physician Start: 01-17-2025 TRANSIT OPERATIONS SUPERVISOR antibody measurement No Primary Care Physician Comment on above: Test not performed Previous reported re sult: TNP AIEdited by: LAZARA on 01/22/25:2007 AMENDED REPORT 01/22/252007 TRANSIT OPERATIONS SUPERVISOR Ab previously reported as: Test not performed Start: 01-17-2025 Shrimp RAST No Primary Care Physician Start: 01-10-2025 Radionuclide study o f abdomen No Primary Care Physician Start: 12-12-2024 Urnls dip stick/tabl et reagent auto microscopy No Primary Care Physician Start: 12-12-2024 US scan of gallbladder Dr. Jacey Domínguez MD Work Phone: Start: 12-12-2024 Estimated creatinine clearance No Primary Care Physician Start: 01-08-[address] Jacey Domínguez Work Phone: Start: 09-04-[address] Reggie Domínguez Work Phone: Start: 09-04-[address] Jacey Domínguez Work Phone: Start: 02-10-2023 Urnls dip stick/tabl et rgnt auto w/o microscopy Kanchan Jones [employer]PER[employer] ENGINEER.INTERNATIONAL SOURCING MANAGER Work Phone: Start: 09-16-2022 CT of head without contrast Dr. Jacey Domínguez Work Phone: Start: 02-28-2022 Us abdominal real ti me w/image limited Lisa Britt [employer]PER[employer] ENGINEER.INTERNATIONAL SOURCING MANAGER Work Phone: Start: 10-31-2019 Adult depression scr eening assessment Kanchan Jones [employer]PER[employer] ENGINEER.INTERNATIONAL SOURCING MANAGER Work Phone: Plan of Treatment Date Care Activity Detail Author Start: 11-04-2029 Urine microalbumin profile DTaP,Tdap,Td Vaccine (9 - Td or Tdap) [facility] Start: 05-31-2029 Urine microalbumin profile [facility] Start: 04-30-2025 [facility] Start: 04-10-2025 [facility] Start: 01-17-2025 [facility] Start: 12-16-2024 End: 12-16-2024 Patient encounter procedure 12/16/2024 2:00 PM EDT Office Visit [facility] [place] [address], [place] [id number] Shakira Ocampo [employer]PER[employer] ENGINEER.INTERNATIONAL SOURCING MANAGER [address] [place] [address] Establish Care Peds Transfer [facility] [place] Comment on above: Establish Care Peds Transfer Start: 12-12-2024 [facility] Start: 05-19-2024 Covid-19 Vaccine ( season) Covid-19 Vaccine ( season) [facility] Start: 05-19-2024 Influenza vaccination Influenza Vacc ine (#1) [facility] Start: 05-19-2023 Influenza vaccination INFLUENZ A (Season Ended) [facility] Start: 2023 Screening for malign ant neoplasm of cervix Cervical Cancer Screening [facility] Start: 09-18-2022 DEPRESSION ASSESSMENT DEPRESSION ASS ESSMENT [facility] Start: 05-19-2022 Influenza vaccination [facility] Start: 02-28-2022 End: 04-30-2022 Lipase [Enzymatic activity/volume] in Serum or Plasma [facility] Work Phone: Comment on above: Expected: 02/28/2022 , Expires: 04/30/2022 Start: 2021 Pneumococcal vaccination Pneum ococcal Vaccine (1 of 2 - PCV) [facility] Start: 10-31-2020 Adult depression screening assessment DEPRESSION SCREENING [facility] Start: 2020 Anxiety Screening Anxiety Screening [facility] Start: 2020 CHLAMYDIA SCREENING (18-24) CHLAMYDIA SCREENING (18-24) [facility] Start: 2020 Depression Screening Depression Scre ening [facility] Start: 2020 GC (GONORRHEA) SCREE RONAL (18-24) GC (GONORRHEA) SCREENING (18-24) [facility] Start: 2020 HEPATITIS C SCREENING HEPATITIS C [facility] Start: 2020 Hepatitis C screening Hepatitis C Sc [facility] Start: 2020 HIV SCREENING HIV SCREENING [facility] Start: 2020 HIV screening HIV Screening [facility] Start: 2020 Screening for Chlamy rae trachomatis Chlamydia Screening (18) [facility] Start: 2018 Meningococcal B Vacc ine (1 of 2 - Standard) Meningococcal B Vaccine (1 of 2 - Standard) [facility] Start: 2016 PEDS TO ADULT TRANSI TION ANNUAL ASSESSMENT PEDS TO ADULT TRANSITION ANNUAL ASSESSMENT [facility] Start: 2014 PEDS TO ADULT TRANSI TION INITIAL DISCUSSION PEDS TO ADULT TRANSITION INITIAL DISCUSSION [facility] Start: 2012 MENINGOCOCCAL B: Consider based on risk (1 of 2 - Risk Bexsero 2-dose series) MENINGOCOCCAL B: Consider based on risk (1 of 2 - Risk Bexsero 2-dose series) [facility] Start: 2008 PNEUMOCOCCAL (1 - PCV) PNEUMOCOCCAL (1 - PCV) [facility] Start: 2007 COVID-19 VACCINE (#1) COVID-19 VACCI NE (#1) [facility] Start: 2002 COVID-19 VACCINE (#1) COVID-19 VACCI NE (#1) [facility] Beef IgE Ab [Units/volume] in Serum [facility] Chocolate IgE Ab [Units/volume] in Serum [facility] Codfish IgE Ab [Units/volume] in Serum [facility] [place] IgE Ab [Units/volume] in Serum [facility] Cow milk IgE Ab [Units/volume] in Serum [facility] CT Abdomen and Pelvi s W contrast IV [facility] DNA double strand Ab [Units/volume] in Serum [facility] Folate [Moles/volume ] in Serum or Plasma [facility] Food RAST [facility] Patient Education [facility] Work Phone: Patient referral [facility] Work Phone: Peanut IgE Ab [Units/volume] in Serum [facility] Pork IgE Ab [Units/volume] in Serum [facility] Radionuclide gastric emptying study [facility] [place] IgE Ab [Units/volume] in Serum [facility] Shrimp IgE Ab [Units/volume] in Serum [facility] Soybean IgE Ab [Units/volume] in Serum [facility] Tuna IgE Ab [Units/volume] in Serum [facility] US Pelvis [facility] US Pelvis transvaginal [facility] Wheat IgE Ab [Units/volume] in Serum [facility] Whole Egg IgE Ab [Units/volume] in [facility] Immunizations Immunization Date Immunization Notes Care Provider [facility] 11-04-2019 tetanus toxoid, redu rosalinda diphtheria toxoid, and acellular pertussis vaccine, adsorbed Dr. Jacey Domínguez Work Phone: [facility] 05-31-2019 tetanus toxoid, redu rosalinda diphtheria toxoid, and acellular pertussis vaccine, adsorbed Kanchan Jones APRN.INTERNATIONAL SOURCING MANAGER Work Phone: [facility] 08-02-2018 meningococcal polysaccharide (groups A, C, Y and W-135) diphtheria toxoid conjugate vaccine (MCV4P) Kanchan Jones APRN.INTERNATIONAL SOURCING MANAGER Work Phone: [facility] 03-23-2015 human papilloma viru s vaccine, quadrivalent Kanchan Jones [employer]PERATIONS ENGINEER.INTERNATIONAL SOURCING MANAGER Work Phone: [facility] 05-20-2014 human papilloma viru s vaccine, quadrivalent Kanchan Jones [employer] OPERATIONS ENGINEER.INTERNATIONAL SOURCING MANAGER Work Phone: [facility] Work Phone: 05-03-2013 human papilloma viru s vaccine, quadrivalent Kanchan Jones [employer] OPERATIONS ENGINEER.INTERNATIONAL SOURCING MANAGER Work Phone: [facility] 05-03-2013 Meningococcal, MCV4, unspecified conjugate formulation(groups A, C, Y and W-135) Kanchan Jones [employer] OPERATIONS ENGINEER.INTERNATIONAL SOURCING MANAGER Work Phone: [facility] 05-03-2013 tetanus toxoid, redu rosalinda diphtheria toxoid, and acellular pertussis vaccine, adsorbed Kanchan Jones BIOFU[employer] PLANT OPERATIONS ENGINEER.[facility] Work Phone: [facility] 08-01-2006 diphtheria, tetanus toxoids and acellular pertussis vaccine Kanchan Jones BIOFU[employer] PLANT OPERATIONS ENGINEER.[facility] Work Phone: [facility] Work Phone: 08-01-2006 measles, mumps and rubella virus vaccine Kanchan Jones [employer] OPERATIONS ENGINEER.INTERNATIONAL SOURCING MANAGER Work Phone: [facility] Work Phone: 08-01-2006 poliovirus vaccine, inactivated Kanchan Jones [employer]ANT OPERATIONS ENGINEER.[facility] Work Phone: [facility] Work Phone: 08-01-2006 varicella virus vaccine Rosa Jones [employer]ANT OPERATIONS ENGINEER.[facility] Work Phone: [facility] Work Phone: 10-22-2003 varicella virus vaccine Rosa Jones [employer] OPERATIONS ENGINEER.INTERNATIONAL SOURCING MANAGER Work Phone: [facility] Work Phone: 03-24-2003 diphtheria, tetanus toxoids and acellular pertussis vaccine Kanchan Jones B[employer]ANT OPERATIONS ENGINEER.[facility] Work Phone: [facility] Work Phone: 03-24-2003 haemophilus influenz ae type b vaccine, HbOC conjugate Kanchan Jones [employer] OPERATIONS ENGINEER.INTERNATIONAL SOURCING MANAGER Work Phone: [facility] Work Phone: 03-24-2003 measles, mumps and rubella virus vaccine Kanchan Jones B[employer] OPERATIONS ENGINEER.[facility] Work Phone: [facility] Work Phone: 03-24-2003 pneumococcal conjuga te vaccine, 7 valent Kanchan Jones [employer] OPERATIONS ENGINEER.[facility] Work Phone: [facility] Work Phone: 01-23-2003 poliovirus vaccine, inactivated Kanchan Jones BIOFU[employer] PLANT OPERATIONS ENGINEER.[facility] Work Phone: [facility] Work Phone: 2002 diphtheria, tetanus toxoids and acellular pertussis vaccine Kanchan Jones BIOFUEL[employer] PLANT OPERATIONS ENGINEER.[facility] Work Phone: [facility] Work Phone: 2002 haemophilus influenz ae type b vaccine, HbOC conjugate Kanchan Jones B[employer] PLANT OPERATIONS ENGINEER.[facility] Work Phone: [facility] Work Phone: 2002 hepatitis B vaccine, pediatric or pediatric/adolescent dosage Kanchan Jones B[employer]ANT OPERATIONS ENGINEER.[facility] Work Phone: [facility] Work Phone: 2002 pneumococcal conjuga te vaccine, 7 valent Kanchan Jones B[employer] PLANT OPERATIONS ENGINEER.[facility] Work Phone: [facility] Work Phone: 2002 diphtheria, tetanus toxoids and acellular pertussis vaccine Kanchan Jones B[employer] OPERATIONS ENGINEER.[facility] Work Phone: [facility] Work Phone: 2002 haemophilus influenz ae type b vaccine, HbOC conjugate Kanchan Jones B[employer] PLANT OPERATIONS ENGINEER.[facility] Work Phone: [facility] Work Phone: 2002 pneumococcal conjuga te vaccine, 7 valent Kanchan Jones BIOFU[employer] PLANT OPERATIONS ENGINEER.[facility] Work Phone: [facility] Work Phone: 2002 poliovirus vaccine, inactivated Kanchan Jones B[employer]FU[employer] PLANT OPERATIONS ENGINEER.[facility] Work Phone: [facility] Work Phone: 2002 diphtheria, tetanus toxoids and acellular pertussis vaccine Kanchan Jones [employer] OPERATIONS ENGINEER.INTERNATIONAL SOURCING MANAGER Work Phone: [facility] Work Phone: 2002 haemophilus influenz ae type b vaccine, HbOC conjugate Kanchan Jones [employer] OPERATIONS ENGINEER.INTERNATIONAL SOURCING MANAGER Work Phone: [facility] Work Phone: 2002 pneumococcal conjuga te vaccine, 7 valent Kanchan Jones [employer] OPERATIONS ENGINEER.INTERNATIONAL SOURCING MANAGER Work Phone: [facility] Work Phone: 2002 poliovirus vaccine, inactivated Kanchan Jones BIO[employer] PLANT OPERATIONS ENGINEER.[facility] Work Phone: [facility] Work Phone: 2002 hepatitis B vaccine, pediatric or pediatric/adolescent dosage Kanchan Jones [employer] OPERATIONS ENGINEER.INTERNATIONAL SOURCING MANAGER Work Phone: [facility] Work Phone: 2002 hepatitis B vaccine, pediatric or pediatric/adolescent dosage Kanchan Jones B[employer] PL[employer] OPERATIONS ENGINEER.[facility] Work Phone: [facility] Work Phone: Payers Date Payer Category Payer Self-pay [id number] 2022 Medicaid [id number] 2021 Medicaid [employer] [id number] 2021-Present [phone] [address] [place] [address] Medicaid [id number] 2021 Medicaid [id number] Unknown [id number] Unknown [facility] [id number] Unknown [id number] Unknown [id number] Unknown [id number] Unknown [id number] Unknown [id number] Unknown [id number] Unknown [id number] Unknown [id number] Unknown [id number] Unknown [id number] Unknown [id number] Unknown [id number] Unknown [id number] Unknown [id number] Unknown [id number] Unknown [id number] Unknown [id number] Social History Date Type Detail Facility Start: 02-24-2022 End: 02-10-2023 Tobacco smoking status NHIS Occasional tobacco smoker [facility] Start: 02-24-2022 End: 02-10-2023 Tobacco use and exposure Smokeless tobacco non-user [facility] Start: 02-24-2022 End: 02-10-2023 Alcohol intake Current non-drinker of alcohol (finding) [facility] Start: 04-09-2012 Tobacco Comment moms smokes [facility] Start: 2002 Sex Assigned At Female [facility] Start: 02-14-2022 End: 02-24-2022 Exposure to SARS-CoV-2 (event) Not sure [facility] Start: 08-10-2022 End: 11-03-2023 Tobacco smoking status NHIS Unknown if ever smoked [facility] Start: 08-05-2020 With Family [facility] History of tobacco use Passive smoker [facility] Start: 02-10-2023 End: 12-16-2024 History of Social function [facility] Start: 02-10-2023 End: 12-16-2024 Tobacco use panel [facility] National Score (1-10 0), lower number is lower risk 87 [facility] Start: 02-23-2022 Gender identity Identifies as female gender (finding) [facility] Start: 02-23-2022 Sexual orientation Heterosexual (fin ding) [facility] Start: 12-12-2024 End: 04-23-2025 Tobacco smoking status NHIS Smokes tobacco daily (finding) [facility] Start: 12-12-2024 Sex Female (finding) [facility] Goals Date Patient Goal Desired Activity /State Functional Status Date Assessment Result Facility 04-30-2025 Functional status Ambulates [facility] Work Phone: 03-23-2015 Are you deaf, or do you have serious difficulty hearing No 03/23/2015 11:33 AM Pam Catnu Ma No [facility] 03-23-2015 Are you blind, or do you have serious difficulty seeing, even when wearing glasses No 03/23/2015 11:33 AM Pam Cantu Ma No [facility] 03-23-2015 Do you have serious difficulty walking or climbing stairs No 03/23/2015 11:33 AM EDT Pam Alonso Ma No [facility] 03-23-2015 Do you have difficul ty dressing or bathing No 03/23/2015 11:33 AM EDT Pam Alonso Ma No [facility] Mental Status Date Assessment Result Facility 04-30-2025 Cognitive function Voice/Name [facility] Work Phone: 09-16-2022 Cognitive function Level Of Cons ciousness Awake;Alert;Appropriate;Fol lows Commands [facility] Work Phone: 03-23-2015 Because of a physica l, mental, or emotional condition, do you have serious difficulty concentrating, remembering, or making decisions No 03/23/2015 11:33 AM EDT Pam Alonso Ma No [facility] Clinical Notes 02-24-2022 to 04-30-2025 Note Date & Type Note Facility 04-30-2025 Consult note [facility] 04-30-2025 Consult note Note Date/Time April 30, 2025 3:00pm [facility] Medical Records Department [address] [place] [address] Anesthesia Postop Eval I 04/30/25 1459 MR#: [id number] Acct: [id number] Name: DUNG HULL Rep #:[id number] : 2000 25 From: Radha Arceo CRNA PCP: Care Physician,No Primary Status :REG SDC Y Race: C Location: [place] [address] Anesthesia: Postop Eval I Current Vital Signs Temperature: 97.3 F Pulse Rate: 97 Blood Pressure: 119/75 Respiratory Rate: 20 Pulse Ox: 98 Oxygen Delivery Method: Room Air Assessment Airway patent: Yes Spontaneous unlabored respirations: Yes Mental status: Awake nausea: No Vomiting: No Anesthesia Complication: No Fluid Hydration Crystalloid volume administer (ml): 1,000 Total IV fluid infused: 1,000 Progress Note Anesthesia document: Postop Eval 1 completed: Yes 04/30/25 1500 <Electronically signed by Radha murillo CRNA> Date _ Radha Arceo SOLUTION CONSULTANT Cosigner Signature: Date CC: ~ Signed [facility] Work Phone: 1(524) 820-391508-13-2025 Discharge summary Author Dmitry Nunn [facility] Note Date/Time April 30, 2025 2: 36pm [facility] Medical Records Department [address] [place] [address] Instructions for Home/Discharge Instructions 04/30/25 1433 MR#: [id number] Acct: [id number] Name: DUNG HULL Rep #:[id number] : 2000 25 From: Dmitry Nunn MD PCP: Care Physician,No Primary Status :REG [facility] Discharge Instructions Diet Discharge Diet: Light diet - advance as tolerated Activity Discharge Activity: Return to Normal Activity and May Shower May shower in (days): 1 Ice area for (Minutes): 30 Lifting Restrictions: No lifting pushing or pulling more than 20 pounds for 4 weeks Dressing / Incision Call your doctor if your incision/area has: Continuous Slow Oozing, Sudden Increased Bleeding, Increased Pain/ Swelling, Increased Redness, Foul Smelling Discharge and Swelling at the incision site Call your doctor if you observe: Fever of 101 or Higher Cleanse incision/area with: Soap & Water Additional Dressing/Incision Instructions:: Wear abdominal binder for comfort Follow Up Care Please Follow Up With: Dmitry Nunn MD When: 2 weeks. Please call office to schedule appointment Test Results: Test results from this visit will be discussed in further detail at your follow- up appointment, if applicable. Discharge Plan Admission Primary Reason for Your Visit: Laparoscopic cholecystectomy Attending Provider: Dmitry Nunn Primary Care Provider: Care Physician,No Primary Instructions Print Language: [place] Discharge Orders/Prescriptions Prescriptions: New oxycodone-acetaminophen [Percocet] 5-325 mg tablet 1 tab PO TID PRN (Reason: pain) 3 Days Qty: 10 0RF Continued polyethylene glycol 3350 [Miralax] 17 gram/dose powder 4 g PO QDAY Qty: 238 0RF Linzess 145 mcg capsule 145 mcg PO QAM Qty: 30 2RF Rx Instructions: take 30 minutes prior to first meal of the day ondansetron 4 mg tablet,disintegrating 4 mg PO Q8H PRN PRN (Reason: Nausea) Qty: 30 2RF Referrals / Follow Up: Care Physician,No Primary [Primary Care Provider] - Disposition Disposition (needs filled in before D/C Order can be placed): Home, Self Care 04/30/25 1436<Electronically signed by Dmitry Nunn MD>Dmitry Nunn MD CC: No Primary Care Physician ~ Signed [facility] Work Phone: 1(768) 818-252908-13-2025 History and physical note Author Dmitry Nunn [facility] Note Date/Time April 30, 2025 1: 08pm [facility] Medical Records Department [address] [place] [address] History & Physical Exam 04/30/25 1305 MR#: [id number] Acct: [id number] Name: DUNG HULL Rep #:[id number] : 2000 25 From: Dmitry Nunn MD PCP: Care Physician,No Primary Status :[facility] Location: [place] [address] HPI - General General Date of Admission: 04/30/25 Date of Service: 04/30/25 Chief Complaint: Right upper quadrant pain HPI Narrative DUNG HULL, is a 25 F who presents for elective laparoscopic cholecystectomy with cholangiograms. Patient has multiple GI issues and complaints. She has undergone extensive workup. HIDA scan showed a low ejection fraction concerningfor biliary dyskinesia. Some of her symptoms seem consistent with biliary colicalthough some symptoms do not. I did offer her the option of a laparoscopic cholecystectomy as treatment with the understanding that this may not relieve all of her GI symptoms. She is understanding of this and wishes to proceed [facility] Medical History Anxiety Marijuana use Alcohol use Low iron Anemia Easy bruising Dietary restriction Heartburn Smoker Biliary dyskinesia Gallbladder problem Abdominal pain Generalized headaches Gastrointestinal problem UTI (urinary tract infection) Home Medications ?Medication ?Instructions ?Recorded ?Last Taken ?Type polyethylene glycol 3350 17 4 g PO QDAY #238 grams 07/12 Unknown Rx gram/dose oral powder (Miralax) linaclotide 145 mcg capsule 145 mcg PO QAM #30 caps Unknown Rx (Linzess) ondansetron 4 mg disintegrating 4 mg PO Q8H PRN PRN Na usea #30 tabs 04/25/25 Unknown Rx tablet Allergy/AdvReac Type Severity Reaction Status Date / Time latex Allergy Rash Verified 04/30/25 10:32 Family History Grandfather Heart disease Unknown Thyroid cancer Other Anxiety Bone cancer Cancer Liver disease Pancreatic cancer Surgical History H/O section Social History current occupational status: employed current occupation: [employer] Smoking Status: Current every day smoker tobacco type: e-cigarettes alcohol intake: never substance use type: marijuana caffeine: No what type of physical activity do you participate in: walking frequency: 5-6 times per week seatbelt use: always Vital Signs Vital Signs Vital Signs: 04/30/25 10:40 04/30/25 10:40 04/30/25 11:32 Temperature 98 F 98 F Temperature Source Temporal Pulse Rate 77 77 Respiratory Rate 16 16 Respiratory Pattern Normal Blood Pressure 99/76 99/76 Blood Pressure Mean 83 Blood Pressure Source Monitor Blood Pressure Position Semi-Fowlers Blood Pressure Location Left Arm Pulse Ox 100 100 Oxygen Delivery Method Room Air Room Air Weight Weight: 127 lb 13.89 oz Body Mass Index (BMI) 23.3 Physical Exam Const alert, oriented x3 and no apparent distress Results Lab / Micro Data Labs: Laboratory Results - last 24 hr 04/30/25 10:22: Urine Test Negative Assessment & Plan Assessment/Plan (1) RUQ pain: PLAN: Plan The patient is a 25-year-old female in need of a laparoscopic cholecystectomy. We discussed the details of the planned procedure and she wishes to proceed. This began momentarily 04/30/25 4701 <Electronically signed by Dmitry Nunn MD> Cosigner Signature (if applicable): CC: Dr. Dmitry Nunn MD; No Primary Care Physician~ Signed [facility] Work Phone: 1(458) 364-744608-13-2025 Consult note [facility] Medical Records Department [address] [place] [address] Anesthesia Postop Eval I 04/30/25 1459 MR#: [id number] Acct: [id number] Name: DUNG HULL Rep #:[id number] : 2000 25 From: Radha Arceo CRNA PCP: Care Physician,No Primary Status :REG SD Y Race: C Location: [place] [address] Anesthesia: Postop Eval I Current Vital Signs Temperature: 97.3 F Pulse Rate: 97 Blood Pressure: 119/75 Respiratory Rate: 20 Pulse Ox: 98 Oxygen Delivery Method: Room Air Assessment Airway patent: Yes Spontaneous unlabored respirations: Yes Mental status: Awake nausea: No Vomiting: No Anesthesia Complication: No Fluid Hydration Crystalloid volume administer (ml): 1,000 Total IV fluid infused: 1,000 Progress Note Anesthesia document: Postop Eval 1 completed: Yes 04/30/[address] SOLUTION CONSULTANT> Date _ Radha Arceo SOLUTION CONSULTANT Cosigner Signature: Date CC: ~ Signed [facility]08-13-2025 Procedure note [facility] Medical Records Department [address] [place] [address] Operative Report 04/30/25 1436 MR#: [id number] Acct: [id number] Name: DUNG HULL Rep #:[id number] : 2000 25 From: Dmitry Nunn MD PCP: Care Physician,No Primary Status :REG SDC Location: [place] [address] Procedures Digestive 40xxx-49xxx: 29571 Laparoscopic cholecystectomy Operative Report (Standard) Operative Information Date of Procedure: 04/30/25 Pre-Operative Diagnosis: Biliary dyskinesia Post-Operative Diagnosis: Same Surgery/Procedure Performed: Laparoscopic cholecystectomy with attempted cholangiograms manager shell: Yes Calender Wind Up Tender: Alessandra Schwartz Tasks completed by early childhood assistant: Closing, Trocar, Retracting and Other Additional executive assistant to president?: No Type of Anesthesia: General and Local RN Documented Start/Stop Times: Operation Date: 04/30/25 12:00 Case Time Into Pre-Op 04/30/25 10:18 Out of Pre-Op 04/30/25 13:19 Anesthesia Start 04/30/25 13:23 Into Room 04/30/25 13:23 Procedure Start 04/30/25 13:46 Procedure Start Time: 13:46 Procedure Stop Time: 14:40 Select all DRAINS/GRAFTS/IMPLANTS that apply: None Estimated Blood Loss: Minimal Specimen collected: Yes Description of specimen(s) removed: Gallbladder Description of surgery: The patient is a 25-year-old female recently seen through the office with multiple GI issues and complaints. She has undergone a pretty extensive workup. Part of this workup she underwent an ultrasound of the right upper quadrant which was unremarkable however she underwent a HIDA scan that showed a below normal ejection fraction consistent with biliary dyskinesia. I felt that at least some of her symptoms were consistent with biliary colic although she had some symptoms that were probably independent of her gallbladder. We had a lengthy discussion regarding possible cholecystectomy. I statedthat we could certainly proceed with cholecystectomy in hopes that this may improve much of her symptoms however I could not guarantee that this would resolve all of her GIissues and complaints. She was agreeable to this and understood this and wishedto proceed with cholecystectomy. We discussed the details of the planned procedure including the risks benefits and alternatives. She wished to proceed. The patient was brought to the operating today following informed consent. She was placed supine onthe operative table with arms outstretched on arm boards. The abdomen is then prepped and draped inthe usual sterile manner. A 5 mm incision was made just below the umbilicus which a 5 mm trocar wasplaced optically. This was placed without incident. Once in place the abdomen is thenfully insufflated with CO2 gas. A 5 mm 0 degree scope was inserted there were no signs of bowel or vascular injury. Next two 5 mm trocars were placed under direct visualization in the right upper quadrant. These were placed without incident. Also a 10 mm trocar was placed under direct visualization in the epigastric area. The patient was then positioned with some head up and rolled to the left to improve exposure to the gallbladder. The gallbladder was identified it was grasped and reflected in a cephalad direction. The peritoneumon either side of the gallbladder was then incised using electrocautery this improved mobility of the gallbladder infundibulum. The cystic duct and cystic artery were then dissected out circumferentially. The lower aspect of the gallbladder was dissected off of the cystic platewhich allowed a critical view of safety to be obtained in which 2 and only 2 structures were going to and fromthe gallbladder. There is 2 structures being the cystic duct and cystic artery. The duct was addressed first by placing a 10 mm clip on the gallbladder side ofthe duct. A small ductotomy was made using curved scissors. There was positivereturn of small amount of bile. The duct was very small in caliber. Numerous attempts were made to insert the cholangiogram catheter into the cystic duct. The guidewire was able to be passed easily however the cholangiogram catheter itself was too large to fit into the opening. The opening was also enlarged andstill could not accommodate the cholangiogram catheter. At this point we decided to forego further attempts of cholangiograms. Patient had no stones on ultrasound and the anatomy seem to be clearly understood and interpreted. At this point,10 mm clips x 3 were applied to the cystic duct stump and this was then transected. The cystic artery was clipped and transected in a similar manner. The gallbladder was then easily removed from the liver bed using electrocautery. Once freed was placed into a bag and brought out through the 10mm trocar site. The trocar was replaced. The right upper quadrant is then copiously irrigated. Hemostasiswas excellent. The fascia at the 10 mm trocar site was closed using 0 PDS with the aid of the fascial closure device. Local anesthetic was injected into each of the incisions. The trocars were removed and insufflation was allowed to escape. The incision was then closed with 4-0 Vicryl and skin gluewas applied as dressing. She was awakened from anesthesia and taken to recovery in good condition. An abdominal binder was also placed per patient request Surgical Findings: Unable to perform cholangiograms due to small caliber cystic duct Complications Complications: No Admit VTE Documentation VTE Present on Admission: No VTE Mechan Device Prophylaxis: SCD's VTE Pharm Prophylaxis ordered?: No Reason prophylaxis not ordered: Treatment Not Indicated 04/30/25 1447 Cosigner Signature (if applicable): CC: Dr. Dmitry Nunn MD; No Primary Care Physician~ Signed [facility]08-13-2025 Discharge summary [facility] Medical Records Department [address] [place] [address] Instructions for Home/Discharge Instructions 04/30/25 1433 MR#: [id number] Acct: [id number] Name: DUNG HULL Rep #:[id number] : 2000 25 From: Dmitry Nunn MD PCP: Care Physician,No Primary Status :REG [facility] Discharge Instructions Diet Discharge Diet: Light diet - advance as tolerated Activity Discharge Activity: Return to Normal Activity and May Shower May shower in (days): 1 Ice area for (Minutes): 30 Lifting Restrictions: No lifting pushing or pulling more than 20 pounds for 4 weeks Dressing / Incision Call your doctor if your incision/area has: Continuous Slow Oozing, Sudden Increased Bleeding, Increased Pain/ Swelling, Increased Redness, Foul Smelling Discharge and Swelling at the incision site Call your doctor if you observe: Fever of 101 or Higher Cleanse incision/area with: Soap & Water Additional Dressing/Incision Instructions:: Wear abdominal binder for comfort Follow Up Care Please Follow Up With: Dmitry Nunn MD When: 2 weeks. Please call office to schedule appointment Test Results: Test results from this visit will be discussed in further detail at your follow- up appointment, if applicable. Discharge Plan Admission Primary Reason for Your Visit: Laparoscopic cholecystectomy Attending Provider: Dmitry Nunn Primary Care Provider: Care Physician,No Primary Instructions Print Language: South African Discharge Orders/Prescriptions Prescriptions: New oxycodone-acetaminophen [Percocet] 5-325 mg tablet 1 tab PO TID PRN (Reason: pain) 3 Days Qty: 10 0RF Continued polyethylene glycol 3350 [Miralax] 17 gram/dose powder 4 g PO QDAY Qty: 238 0RF Linzess 145 mcg capsule 145 mcg PO QAM Qty: 30 2RF Rx Instructions: take 30 minutes prior to first meal of the day ondansetron 4 mg tablet,disintegrating 4 mg PO Q8H PRN PRN (Reason: Nausea) Qty: 30 2RF Referrals / Follow Up: Care Physician,No Primary [Primary Care Provider] - Disposition Disposition (needs filled in before D/C Order can be placed): Home, Self Care 04/30/25 1436Dmitry Nunn MD CC: No Primary Care Physician ~ Signed [facility]08-13-2025 Consult note Author Emerson Ferris [facility] Note Date/Time April 30, 2025 11 :36am [facility] Medical Records Department [address] [place] [address] Pre-Anesthesia Evaluation 04/30/25 1131 MR#: [id number] Acct: [id number] Name: DUNG HULL Rep #:[id number] : 2000 25 From: Emerson Bhatia PCP: Care Physician,No Primary Status :REG SDC Y Race: C Location: [place] [address] ASA Classification* ASA Classification ASA Classification: 2 Assessment & Plan Anesthesia* Anesthesia Assessment Anesthesia Assessment: Discussed sedation and/or anesthesia options, risks, benefits, and alternatives with patient/parents/legal guardian/POA. Questions invited. The patient/parents/legal guardian/POA seems to understand and agrees to proceedwith anesthesia plan. Reviewed the physical assessment, medical history, allergy history and patient home medications list prior to surgery/procedure/anesthetic and documented any changes. Performed airway and anesthesia risk assessments. Anesthesia Type Anesthesia Type: General History Source History Obtained from:: Patient and Chart Anesthesia Focused Assessment* Temperature: 98 F Pulse Rate: 77 Blood Pressure: 99/76 Respiratory Rate: 16 Pulse Ox: 100 Oxygen Delivery Method: Room Air Airway Assessment Mouth opens: >3 cm Mallampati Score: II Teeth Condition: Intact Neck Range of motion (ROM): Full ROM Labs Anesthesia Preop lab: CBC WBC 4.4 K/mm3 (4.4-11.0) 04/10/25 09:15 04/10/25 RBC 4.23 M/mm3 (4.2-5.4) 04/10/25 09:15 04/10/25 Hgb 12.6 g/dL (12.0-15.0) 04/10/25 09:15 04/10/25 Hct 37.7 % (37-47) 04/10/25 09:15 04/10/25 Plt Count 182 K/mm3 (150-450) 04/10/25 09:15 04/10/25 CHEMISTRY Potassium 3.6 mmol/L (3.3-5.1) 04/10/25 09:15 04/10/25 Sodium 139 mmol/L (133-145) 04/10/25 09:15 04/10/25 BUN 7 mg/dL (4-19) 04/10/25 09:15 04/10/25 Creatinine 0.78 mg/dL (0.70-1.20) 04/10/25 09:15 04/10/25 Glucose 99 mg/dL (70-99) 04/10/25 09:15 04/10/25 TSH 1.100 uIU/mL (0.300-4.200) 01/17/25 13:37 05/0 11/12 COAG HCG, Quant 21353 mIU/mL (1-3) H 06/17/19 15:49 06/17/19 Urine Test Negative Negative 04/30/25 10:22 04/30/25 Tst Clinic Negative 09/12/23 15:37 09/12/23 Pre-Assessment Diagnosis/Proposed Procedure Planned Operative Procedure(s): Laparoscopic, Cholecystectomy with IOC Anesthesia History 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 When Was Last Pacemaker Check QUESTION #4 FULL TEXT: You/Your Family Experience fever (hyperthermia) with Anesthesia Last Oral Intake Last Oral intake: Last Oral Intake NPO since 21:00 04/30/25 10:40 Meds taken in AM with sips of Yes 04/30/25 10:40 water? Meds patient instructed to take am of surgery PONV PONV - business systems manager: PONV - business systems manager Female Yes 04/23/25 13:04 HX of Motion Sickness Yes 04/23/25 13:04 HX of N/V After Surgery Yes 04/23/25 13:04 Non-Smoker No 04/23/25 13:04 Duration of Surgery greater Yes 04/23/25 13:04 than 60 minutes Number of Risk Factors 4 04/23/25 13:04 PONV Score Severe Risk 04/23/25 13:04 Height & Weight Height & Weight: Anesthesia: Height & Weight Height 5 ft 2 in 04/30/25 10:40 Weight: 58 kg 04/30/25 10:40 Body Mass Index (BMI) 23.3 04/30/25 10:40 Respiratory Assessment Respiratory Assessment - business systems manager: Respiratory Tract Infection Hx - business systems manager Hx Respiratory Tract Infection No 04/23/25 13:04 STOP Sleep Apnea STOP Sleep Apnea - business systems manager: STOP Sleep Apnea - business systems manager Hx Hypertension No 04/23/25 13:04 Hx Sleep Apnea No 04/23/25 13:04 CPAP BIPAP Do you snore loudly (louder Yes 04/23/25 13:04 than talking or can be heard Do you often feel tired/ No 04/23/25 13:04 fatigued/ sleepy during daytime? Has anyone observed you stop No 04/23/25 13:04 breathing during sleep? STOP Results Negative 04/23/25 13:04 QUESTION #5 FULL TEXT : Do you snore loudly (louder than talking or can be heard through closed doors)? Tobacco Use History Tobacco Use History - business systems manager: Tobacco Use History - business systems manager Tobacco Use Smoking Status Current every day smoker 04/23/25 13:04 Hx Tobacco Use Yes 04/23/25 13:04 Years Smoking Packs Smoked per Day Smoking Cessation Date was within the last 15 years Hx Smoking Cessation Date Hx Smoking Cessation No 04/23/25 13:04 Counseling Hematologic Medial History Hematologic Hx - business systems manager: Hematologic Medical Hx - documentation liaison Hx of Blood Transfusion No 04/23/25 13:04 Hx of Transfusion in last 3 No 04/23/25 13:04 Months Date of Last Transfusion (if within last 3 months) Ever experience any problems No 04/23/25 13:04 with transfusion(s)? Specify any problems Hx of Preganancy in last 3 No 04/23/25 13:04 Months Nurse Filling Out Transfusion JAYLA 04/23/25 13:04 & Questions: Date: 04/23/25 04/23/25 13:04 Time: 13:05 04/23/25 13:04 Patient unable to answer at this time (ie. confused, unrespo /Reproduction History /Reproductive History - business systems manager: /Reproductive Hx- business systems manager Hx Now No 04/23/25 13:04 Gestational Age (in weeks): EDC: Hx Hx Para Hx Section SAB No 04/23/25 13:04 Active Medications Active Medications: Current Medications Generic Name Dose Route Start Last Admin Trade Name Freq PRN Reason Stop Dose Admin Lactated Ringer's 1,000 mls @ 15 mls/hr 04/30/25 10:30 04/30/25 10:44 IV 15 mls/hr .Q48H ARTEMIO Administration PFSH Medical History Anxiety Marijuana use Alcohol use Low iron Anemia Easy bruising Dietary restriction Heartburn Smoker Biliary dyskinesia Gallbladder problem Abdominal pain Generalized headaches Gastrointestinal problem UTI (urinary tract infection) Home Medications ?Medication ?Instructions ?Recorded ?Last Taken ?Type polyethylene glycol 3350 17 4 g PO QDAY #238 grams 07/12 Unknown Rx gram/dose oral powder (Miralax) linaclotide 145 mcg capsule 145 mcg PO QAM #30 caps Unknown Rx (Linzess) ondansetron 4 mg disintegrating 4 mg PO Q8H PRN PRN Na usea #30 tabs 04/25/25 Unknown Rx tablet Allergy/AdvReac Type Severity Reaction Status Date / Time latex Allergy Rash Verified 04/30/25 10:32 Family History Grandfather Heart disease Unknown Thyroid cancer Other Anxiety Bone cancer Cancer Liver disease Pancreatic cancer Surgical History H/O section Social History current occupational status: employed current occupation: [employer] Smoking Status: Current every day smoker tobacco type: e-cigarettes alcohol intake: never substance use type: marijuana caffeine: No what type of physical activity do you participate in: walking frequency: 5-6 times per week seatbelt use: always Review of Systems (Anesthesia) ROS Narrative System reviewed and no additional complaints, except as documented. 04/30/25 1136 <Electronically signed by Emerson Ferris MD> Date _ Emerson Ferris MD Cosigner Signature: Date CC: ~ Signed [facility] Work Phone: 1(653) 386-157608-13-2025 History and physical note [facility] Medical Records Department [address] [place] [address] History & Physical Exam 04/30/25 1305 MR#: [id number] Acct: [id number] Name: DUNG HULL Rep #:[id number] : 2000 25 From: Dmitry Nunn MD PCP: Care Physician,No Primary Status :[facility] Location: [place] [address] HPI - General General Date of Admission: 04/30/25 Date of Service: 04/30/25 Chief Complaint: Right upper quadrant pain HPI Narrative DUNG HULL, is a 25 F who presents for elective laparoscopic cholecystectomy with cholangiograms. Patient has multiple GI issues and complaints. She has undergone extensive workup. HIDA scan showed a low ejection fraction concerningfor biliary dyskinesia. Some of her symptoms seem consistent with b iliary colicalthough some symptoms do not. I did offer her the option of a laparoscopic cholecystectomy as treatment with the understanding that this may not relieve all of her GI symptoms. She is understanding of this and wishes to proceed [facility] Medical History Anxiety Marijuana use Alcohol use Low iron Anemia Easy bruising Dietary restriction Heartburn Smoker Biliary dyskinesia Gallbladder problem Abdominal pain Generalized headaches Gastrointestinal problem UTI (urinary tract infection) Home Medications ?Medication ?Instructions ?Recorded ?Last Taken ?Type polyethylene glycol 3350 17 4 g PO QDAY #238 grams 07/12 Unknown Rx gram/dose oral powder (Miralax) linaclotide 145 mcg capsule 145 mcg PO QAM #30 caps Unknown Rx (Linzess) ondansetron 4 mg disintegrating 4 mg PO Q8H PRN PRN Na usea #30 tabs 04/25/25 Unknown Rx tablet Allergy/AdvReac Type Severity Reaction Status Date / Time latex Allergy Rash Verified 04/30/25 10:32 Family History Grandfather Heart disease Unknown Thyroid cancer Other Anxiety Bone cancer Cancer Liver disease Pancreatic cancer Surgical History H/O section Social History current occupational status: employed current occupation: [employer] Smoking Status: Current every day smoker tobacco type: e-cigarettes alcohol intake: never substance use type: marijuana caffeine: No what type of physical activity do you participate in: walking frequency: 5-6 times per week seatbelt use: always Vital Signs Vital Signs Vital Signs: 04/30/25 10:40 04/30/25 10:40 04/30/25 11:32 Temperature 98 F 98 F Temperature Source Temporal Pulse Rate 77 77 Respiratory Rate 16 16 Respiratory Pattern Normal Blood Pressure 99/76 99/76 Blood Pressure Mean 83 Blood Pressure Source Monitor Blood Pressure Position Semi-Fowlers Blood Pressure Location Left Arm Pulse Ox 100 100 Oxygen Delivery Method Room Air Room Air Weight Weight: 127 lb 13.89 oz Body Mass Index (BMI) 23.3 Physical Exam Const alert, oriented x3 and no apparent distress Results Lab / Micro Data Labs: Laboratory Results - last 24 hr 04/30/25 10:22: Urine Test Negative Assessment & Plan Assessment/Plan (1) RUQ pain: PLAN: Plan The patient is a 25-year-old female in need of a laparoscopic cholecystectomy. We discussed the details of the planned procedure and she wishes to proceed. This began momentarily 04/30/25 1308 Cosigner Signature (if applicable): CC: Dr. Dmitry Nunn MD; No Primary Care Physician~ Signed [facility]08-13-2025 Consult note [facility] Medical Records Department [address] [place] [address] Pre-Anesthesia Evaluation 04/30/25 1131 MR#: [id number] Acct: [id number] Name: DUNG HULL Rep #:[id number] : 2000 25 From: Emerson Bhatia PCP: Care Physician,No Primary Status :REG SDC Y Race: C Location: [place] [address] ASA Classification* ASA Classification ASA Classification: 2 Assessment & Plan Anesthesia* Anesthesia Assessment Anesthesia Assessment: Discussed sedation and/or anesthesia options, risks, benefits, and alternatives with patient/parents/legal guardian/POA. Questions invited. The patient/parents/legal guardian/POA seems to understand and agrees to proceedwith anesthesia plan. Reviewed the physical assessment, medical history, allergy history and patient home medications list prior to surgery/procedure/anesthetic and documented any changes. Performed airway and anesthesia risk assessments. Anesthesia Type Anesthesia Type: General History Source History Obtained from:: Patient and Chart Anesthesia Focused Assessment* Temperature: 98 F Pulse Rate: 77 Blood Pressure: 99/76 Respiratory Rate: 16 Pulse Ox: 100 Oxygen Delivery Method: Room Air Airway Assessment Mouth opens: >3 cm Mallampati Score: II Teeth Condition: Intact Neck Range of motion (ROM): Full ROM Labs Anesthesia Preop lab: CBC WBC 4.4 K/mm3 (4.4-11.0) 04/10/25 09:15 04/10/25 RBC 4.23 M/mm3 (4.2-5.4) 04/10/25 09:15 04/10/25 Hgb 12.6 g/dL (12.0-15.0) 04/10/25 09:15 04/10/25 Hct 37.7 % (37-47) 04/10/25 09:15 04/10/25 Plt Count 182 K/mm3 (150-450) 04/10/25 09:15 04/10/25 CHEMISTRY Potassium 3.6 mmol/L (3.3-5.1) 04/10/25 09:15 04/10/25 Sodium 139 mmol/L (133-145) 04/10/25 09:15 04/10/25 BUN 7 mg/dL (4-19) 04/10/25 09:15 04/10/25 Creatinine 0.78 mg/dL (0.70-1.20) 04/10/25 09:15 04/10/25 Glucose 99 mg/dL (70-99) 04/10/25 09:15 04/10/25 TSH 1.100 uIU/mL (0.300-4.200) 01/17/25 13:37 05/0 11/12 COAG HCG, Quant 65667 mIU/mL (1-3) H 06/17/19 15:49 06/17/19 Urine Test Negative Negative 04/30/25 10:22 04/30/25 Tst Clinic Negative 09/12/23 15:37 09/12/23 Pre-Assessment Diagnosis/Proposed Procedure Planned Operative Procedure(s): Laparoscopic, Cholecystectomy with IOC Anesthesia History 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 When Was Last Pacemaker Check QUESTION #4 FULL TEXT: You/Your Family Experience fever (hyperthermia) with Anesthesia Last Oral Intake Last Oral intake: Last Oral Intake NPO since 21:00 04/30/25 10:40 Meds taken in AM with sips of Yes 04/30/25 10:40 water? Meds patient instructed to take am of surgery PONV PONV - business systems manager: PONV - business systems manager Female Yes 04/23/25 13:04 HX of Motion Sickness Yes 04/23/25 13:04 HX of N/V After Surgery Yes 04/23/25 13:04 Non-Smoker No 04/23/25 13:04 Duration of Surgery greater Yes 04/23/25 13:04 than 60 minutes Number of Risk Factors 4 04/23/25 13:04 PONV Score Severe Risk 04/23/25 13:04 Height & Weight Height & Weight: Anesthesia: Height & Weight Height 5 ft 2 in 04/30/25 10:40 Weight: 58 kg 04/30/25 10:40 Body Mass Index (BMI) 23.3 04/30/25 10:40 Respiratory Assessment Respiratory Assessment - business systems manager: Respiratory Tract Infection Hx - business systems manager Hx Respiratory Tract Infection No 04/23/25 13:04 STOP Sleep Apnea STOP Sleep Apnea - business systems manager: STOP Sleep Apnea - business systems manager Hx Hypertension No 04/23/25 13:04 Hx Sleep Apnea No 04/23/25 13:04 CPAP BIPAP Do you snore loudly (louder Yes 04/23/25 13:04 than talking or can be heard Do you often feel tired/ No 04/23/25 13:04 fatigued/ sleepy during daytime? Has anyone observed you stop No 04/23/25 13:04 breathing during sleep? STOP Results Negative 04/23/25 13:04 QUESTION #5 FULL TEXT : Do you snore loudly (louder than talking or can be heard through closeddoors)? Tobacco Use History Tobacco Use History - business systems manager: Tobacco Use History - business systems manager Tobacco Use Smoking Status Current every day smoker 04/23/25 13:04 Hx Tobacco Use Yes 04/23/25 13:04 Years Smoking Packs Smoked per Day Smoking Cessation Date was within the last 15 years Hx Smoking Cessation Date Hx Smoking Cessation No 04/23/25 13:04 Counseling Hematologic Medial History Hematologic Hx - business systems manager: Hematologic Medical Hx - documentation liaison Hx of Blood Transfusion No 04/23/25 13:04 Hx of Transfusion in last 3 No 04/23/25 13:04 Months Date of Last Transfusion (if within last 3 months) Ever experience any problems No 04/23/25 13:04 with transfusion(s)? Specify any problems Hx of Preganancy in last 3 No 04/23/25 13:04 Months Nurse Filling Out Transfusion JZOLLINGE 04/23/25 13:04 & Questions: Date: 04/23/25 04/23/25 13:04 Time: 13:04/23/25 13:04 Patient unable to answer at this time (ie. confused, unrespo /Reproduction History /Reproductive History - business systems manager: /Reproductive Hx- business systems manager Hx Now No 04/23/25 13:04 Gestational Age (in weeks): EDC: Hx Hx Para Hx Section SAB No 04/23/25 13:04 Active Medications Active Medications: Current Medications Generic Name Dose Route Start Last Admin Trade Name Freq PRN Reason Stop Dose Admin Lactated Ringer's 1,000 mls @ 15 mls/hr 04/30/25 10:30 04/30/25 10:44 IV 15 mls/hr .Q48H ARTEMIO Administration PFSH Medical History Anxiety Marijuana use Alcohol use Low iron Anemia Easy bruising Dietary restriction Heartburn Smoker Biliary dyskinesia Gallbladder problem Abdominal pain Generalized headaches Gastrointestinal problem UTI (urinary tract infection) Home Medications ?Medication ?Instructions ?Recorded ?Last Taken ?Type polyethylene glycol 3350 17 4 g PO QDAY #238 grams 07/12 Unknown Rx gram/dose oral powder (Miralax) linaclotide 145 mcg capsule 145 mcg PO QAM #30 caps Unknown Rx (Linzess) ondansetron 4 mg disintegrating 4 mg PO Q8H PRN PRN Na usea #30 tabs 04/25/25 Unknown Rx tablet Allergy/AdvReac Type Severity Reaction Status Date / Time latex Allergy Rash Verified 04/30/25 10:32 Family History Grandfather Heart disease Unknown Thyroid cancer Other Anxiety Bone cancer Cancer Liver disease Pancreatic cancer Surgical History H/O section Social History current occupational status: employed current occupation: [employer] Smoking Status: Current every day smoker tobacco type: e-cigarettes alcohol intake: never substance use type: marijuana caffeine: No what type of physical activity do you participate in: walking frequency: 5-6 times per week seatbelt use: always Review of Systems (Anesthesia) ROS Narrative System reviewed and no additional complaints, except as documented. 04/30/25 1136 MD> Date _ Emerson Ferris MD Cosigner Signature: Date CC: ~ Signed [facility]07-24-2025 Radiology Diagnostic study note [facility] Imaging Services [address] [place] [address] Abd Inc Decub and/or Erect MR#: [id number] Acct: [id number] Name: DUNG HULL Rep #: [id number] : 2000 F 25 From: Paulo Kessler MD PCP: Care Physician,No Primary Status: REG ER Study:Abd Inc Decub and/or Erect Date of Exam : 04/10/25 Exam# [id number] Ordering Dr: Storm Estrada DO PROCEDURE: ABD INC DECUB AND/OR ERECT 04/10/2025 REASON FOR EXAM: ABD PAIN TECHNIQUE: ABD INC DECUB AND/OR ERECT COMPARISON: February 20, 2025 CT FINDINGS: There is a nonobstructive bowel gas pattern. There is no air-fluid levels or distended small bowel loops. Gas and stool is noted in the descending colon and rectum. An IUD is present in the mid pelvis. There is no acute bony abnormality. RAD/Abd Inc Decub and/or Erect IMPRESSION: Nonobstructive bowel gas pattern. Reading Location: [facility] CC: Dr. Anya Estrada DO; No Primary Care Physician ~ Sound Printer: Signed [facility]06-06-2025 Radiology Diagnostic study note [facility] Imaging Services [address] [place], [place] [id number] Abdomen/Pelvis WITH Contrast MR#: [id number] Acct: [id number] Name: DUNG HULL Rep #: [id number] : 2000 F 24 From: Flor Gallagher MD PCP: Care Physician,No Primary Status: REG CLI Study:Abdomen/Pelvis WITH Contrast Date of Ex am: 02/20/25 Exam# [id number] Ordering Dr: Piyush Maynard DO PROCEDURE: ABDOMEN/PELVIS WITH CONTRAST 02/20/2025 REASON FOR EXAM: ABDOMINAL PAIN TECHNIQUE: Abdomen and pelvis CT with oral and intravenous contrast. Coronal and Sagittal reconstruction series were provided. PATIENT PREPARATION: Per protocol CONTRAST: 98 mL Isovue 370 One or more dose reduction techniques were used (e.g., Automated exposure control, adjustment of the mA and/or kV according to patient size, use of iterative reconstruction technique. RADIATION DOSE SUMMARY: CTDlvol: 13.3 mGy DLP: 349 mGycm COMPARISON: Abdominal ultrasound 12/12/2024 FINDINGS: Lung bases: Unremarkable Liver: Normal size. No mass. Gallbladder: Unremarkable Spleen: Normal size. Pancreas: Normal size without evidence of mass surrounding inflammation or ductal dilation. Adrenals: Unremarkable Kidneys: No hydronephrosis or stones. Bladder: Unremarkable Reproductive Organs: Intrauterine device. Corpus luteum in the right ovary. Bowel: No obstruction or inflammation. Normal appendix. Lymph nodes: Unremarkable Vasculature: Borderline narrowing of the aortomesenteric angle which measures 23degrees. 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 Correlate withsymptoms. Otherwise unremarkable exam. Reading Location: [id number] CC: No Primary Care Physician; DO Alexa Jeffrey Sound Printer: Signed [facility]05-27-2025 Nuclear medicine Diagnostic study note [facility] Imaging Services [address] [place] [address] Gastric Emptying Study MR#: [id number] Acct: [id number] Name: DUNG HULL Rep #: [id number] : 2000 F 24 From: Ebenezer Kim MD PCP: Care Physician,No Primary Status: REG CLI Study:Gastric Emptying Study Date of Exam: 02/11/25 Exam# [id number] Ordering Dr: Piyush Maynard DO PROCEDURE: GASTRIC EMPTYING STUDY 02/11/2025 REASON FOR EXAM: ABDOMINAL PAIN COMPARISON: None TECHNIQUE: The patient ingested a standard meal of oatmeal as well as sulfur colloid, and water. There was no vomiting postprandially. Anterior and posterior planar images of the upper abdomen were obtained for 1 minute immediately following the meal at 1h, 2h and 4h if more than 10% of the activity persisted within the stomach. Regions of interest were drawn, and a geometric mean was used to calculate a [id number]. RADIOPHARMACEUTICAL: Sulfur colloid DOSE 1.1mCi FINDINGS: Percent activity remaining in stomach: 1 hour 48 % (normal 37-90%) NM/Gastric Emptying Study IMPRESSION: Normal gastric emptying examination. Reading Location: [place] [address] CC: No Primary Care Physician; Marc Maynard DO ~ Sound Printer: Signed [facility]05-02-2025 Evaluation note* Diagnosis Onset Date Resolution Status Admit Date Diarrhea acute January 17, 2025 12:29pm Nausea & vomiting acute January 12:29pm RUQ pain acute January 17, 2025 12:29pm Diarrhea acute 2025 3:37pm Nausea & vomiting acute March 3:37pm RUQ pain acute 2025 3:37pm [facility] Work Phone: 1(223) 602-943505-02-2025 Evaluation note* Diagnosis Onset Date Resolution Status Admit Date Diarrhea acute January 17, 2025 12:29pm Nausea & vomiting acute January 12:29pm RUQ pain acute January 17, 2025 12:29pm Diarrhea acute 2025 3:37pm Nausea & vomiting acute March 3:37pm RUQ pain acute 2025 3:37pm Biliary dyskinesia acute April 21, 2025 9:35am RUQ pain acute April 30, 2 025 10:12[facility] Work Phone: 1(861) 477-335704-01-2025 Evaluation note* Diagnosis Onset Date Resolution Status Admit Date Diarrhea acute December 17 9:24am Nausea & vomiting acute December 172024 9:24am RUQ pain acute December 17 9:24am Diarrhea acute January 17, 2025 12:29pm Nausea & vomiting acute January 12:29pm RUQ pain acute January 17, 2025 12:29pm [facility] Work Phone: 1(361) 553-943204-01-2025 Evaluation note* Diagnosis Onset Date Resolution Status Admit Date Diarrhea acute December 17 9:24am Nausea & vomiting acute December 172024 9:24am RUQ pain acute December 17 9:24am Diarrhea acute January 17, 2025 12:29pm Nausea & vomiting acute January 12:29pm RUQ pain acute January 17, 2025 12:29pm Diarrhea acute 2025 3:37pm Nausea & vomiting acute March 3:37pm RUQ pain acute 2025 3:37pm [facility] Work Phone: 1(282) 954-214903-31-2025 Telephone encounter Note* Telephone Encounter - Kenny Coto LPN - 12/16/2024 2:24 PM EDT No Show letter #1 sent to pt. Kenny Coto LPN [facility]03-31-2025 Miscellaneous Notes* Telephone Encounter - Kenny Coto LPN - 12/16/2024 2:24 PM EDT No Show letter #1 sent to pt. Kenny Coto LPN [facility] Medical Records Department [address] [place] [address] Emergency Department Summary 12/12/24 MR#: [id number] Acct: [id number] Name: DUNG HULL Rep #:[id number] : 2000 24 From: Theo Joseph PCP: Care Physician,No Primary Status :REG ER Location: ED HPI History of Present Illness Chief Complaint: Abd Pain PFSH PFSH Home Medications ?Medication ?Instructions ?Recorded ?Last Taken ?Type NK 12/12/24 Unknown History Allergy/AdvReac Type Severity Reaction Status Date / Time latex Allergy Rash Verified 12/12/24 13:33 Family History Grandfather Heart disease Unknown Thyroid cancer Surgical History H/O section Social History current occupational status: employed current occupation: [employer] Smoking Status: Current every day smoker tobacco type: e-cigarettes alcohol intake: never substance use type: does not use caffeine: No what type of physical activity do you participate in: walking frequency: 5-6 times per week seatbelt use: always EXAM Physical Exam Const Vital Signs: 12/12/24 13:31 Temperature 97 F L Temperature Source Temporal Pulse Rate 74 Respiratory Rate 15 Blood Pressure 106/74 Blood Pressure Mean 84 Pulse Ox 100 Oxygen Delivery Method Room Air MDM MDM MDM Narrative Medical decision making narrative: HISTORY OF PRESENT ILLNESS: 24-year-old female presents with concern for abdominal pain. She states she hashad 10 days of abdominal pain. Notes nausea vomiting diarrhea as well. No blood in her vomit. No blood in her stool. No melena. Notes history of otherwise no abdominal surgeries. Denies any urinary complaints. No fever REVIEW OF SYSTEMS: Pertinent positives: Right upper quadrant abdominal pain, nausea vomiting diarrhea Pertinent negatives: Fever, chest pain, urinary complaints, vaginal bleeding or discharge. PHYSICAL EXAM: Nursing triage notes reviewed, Vital signs reviewed Constitutional: please see mdm HENT: MMM Eyes: Pupils equal round and reactive to light, Extraocular muscles intact Neck: No stridor, no JVD, full neck ROM Lungs: Clear to auscultation, No wheezing or rales. No increased work of breathing, no conversational dyspnea, no accessory muscle use, no nasal flaring. No respiratory distress noted Heart: Regular rate and rhythm, No murmurs, No rubs and No gallops, 2+ distal pulses (radial, femoral, posterior tibial) in all extremities Abdomen: Lateral quad TTP, positive Bermudez sign, rigidity, rebound or guarding, no obvious peritoneal signs, no palpable pulsatile abdominal masses, no auscultated abdominal bruit : No CVAT Extremities: No edema Neuro: No new focal neurological deficits, cranial nerves II through XII intact,5/5 strength in allpresent extremities. Intact sensation to light touch in all present extremities, 2+ reflexes bilateral patella tendons. Skin: No rash or lesions noted MEDICAL DECISION MAKING: Chief Complaint: Abdominal pain External records reviewed: Reviewed prior imaging studies Social determinants of health: Denies alcohol History obtained from others: none Consults: none [facility] Narrative: The patient was initially hemodynamically stable, afebrile and nontoxic- appearing. Exam with right upper quadrant TTP, positive Bermudez sign. I considered the following differential diagnosis: AAA, small bowel obstruction, abdominal perforation, appendicitis, pancreatitis, hepatobiliary pathology (acute cholecystitis), mesenteric ischemia, pathology (ie nephrolithiasis, pyelonephritis). I obtained a broad lab and imaging workup to further elucidate etiology of the patient's complaints I initially treated the patient with 1 L normal saline and 4 mg IV Zofran ALL IMAGES (IF OBTAINED) HAVE BEEN PERSONALLY REVIEWED AND INTERPRETED BY MYSELF. CBC without leukocytosis, severe anemia, no thrombocytopenia. Urine test is negative Urinalysis shows no evidence of urinary inflammation suggestive of UTI BMP without evidence of significant electrolyte abnormalities, no acute kidney injury. LFTs show no evidence of hepatobiliary pathology. Right quad ultrasound shows evidence of acute gallbladder pathology The synthesis of the patient's history, physical exam, labs images suggest no acute life-threatening surgical abnormality. I suspect there could be a GI related component including gastritis, esophagitis or peptic ulcer disease. Will encourage close outpatient GI follow-up. Return precautions were discussed The patient and/or family, caregivers express understanding. The patient and/orfamily, caregivers agrees with the plan. Shared decision making: I will have a discussion with the patient and or visitors regarding risk/benefits of further testing or admission. They will be made aware of of the risk/benefits inherent in this decision they will be given the opportunity to voice understanding. Total critical care time today provided was at least 0 minutes. This excludes separately billable procedures. Critical care time (if documented) is secondary to the patient having high probability ofclinically significant/life threatening deterioration in the patient's condition which required my urgent intervention. Impression: 1. Acute abdominal pain Dispo: Discharge home This note was generated with [employer] dictation software. It may contain incorrectwords, spelling, and punctuation that were not noted in review of the chart prior to signing. Lab Data Labs: Laboratory Results - last 24 hr 12/12/24 12/12/24 13:45 14:25 WBC 6.5 RBC 4.48 Hgb 13.5 Hct 39.9 MCV 89.1 MCH 30.1 MCHC 33.8 RDW Std Deviation 39.6 RDW Coeff of Ahsan 12.1 Plt Count 279 MPV 11.4 Immature Gran % (Auto) 0.300 Neut % (Auto) 52.9 Lymph % (Auto) 35.0 [place] % (Auto) 10.1 H Eos % (Auto) 0.8 Baso % (Auto) 0.9 Absolute Neuts (auto) 3.4 Absolute Lymphs (auto) 2.26 Nucleated RBC % 0 Sodium 140 Potassium 3.7 Chloride 104 Carbon Dioxide 17.6 L Anion Gap 19 H BUN 11 Creatinine 0.75 Estim Creat Clear Calc 93.06 Est GFR (MDRD) Non-Af 115 BUN/Creatinine Ratio 14.9 Glucose 82 Calcium 9.3 Total Bilirubin 0.52 Direct Bilirubin 0.26 AST 19 ALT 10 Alkaline Phosphatase 55 Total Protein 6.9 Albumin 4.6 Globulin 2.3 Lipase 24 Urine Color Yellow Urine Clarity Clear Urine pH 5.0 Ur Specific Allons 1.030 Urine Protein 30 H Urine Glucose (UA) Normal Urine Ketones 5 H Urine Occult Blood Negative Urine Nitrite Negative Urine Bilirubin Negative Urine Urobilinogen Normal Ur Leukocyte Esterase Negative Urine RBC 0 SEEN Urine WBC 0 SEEN Ur Squamous Epith Cells 0-5 SEEN Urine Bacteria 0 SEEN Urine Mucus 2+ Urine Test Negative Radiography Diagnostic Testing: Clinical Impression(s) from Imaging Studies Gallbladder Ultrasound 12/12/24 14:19 IMPRESSION: 1. No acute abnormality. Reading [facility] Triage Chief Complaint: Abd Pain ED Provider: Theo Pozo Dx/Rx/DC Orders Prescriptions: No Action NK Primary Care Provider: Care Physician,No Primary Referrals: Care Physician,No Primary [Primary Care Provider] - Print Language: South African What to do if you have Problems For any increased pain, shortness of breath, bleeding, nausea or vomiting, chestpain, or any unexpected problems, contact your Primary Care Provider. Call [facility] ([phone]) or report tothe closest Emergency Room. Call 911 if necessary. 12/12/24 1608 Cosigner Signature (if applicable): CC: No Primary Care Physician ~ Signed [facility]03-27-2025 Radiology Diagnostic study note [facility] Imaging Services [address] [place] [address] Gallbladder MR#: [id number] Acct: [id number] Name: DUNG HULL Rep #: [id number] : 2000 F 24 From: Maricruz Don MD PCP: Care Physician,No Primary Status: REG ER Study:Gallbladder Date of Exam: 12/12/24 Exam# [id number] Ordering Dr: Abhinav Pozo DO PROCEDURE: GALLBLADDER 12/12/2024 REASON FOR EXAM: RUQ TTP COMPARISON: None FINDINGS: Liver: Normal echogenicity and contour.No hepatic lesions identified.The portal vein is patent withhepatopetal flow. Size: 12.1 cm Gallbladder/biliary: No gallstones or gallbladder wall thickening.The common bile duct is normal incaliber. Pancreas: Visualized portions are unremarkable. Right kidney: Normal echogenicity and vascularity. Size: 10.3 cm US/Gallbladder IMPRESSION: 1. No acute abnormality. Reading Location: [facility] CC: Dr. Theo Pozo DO; No Primary Care Physician ~ Sound Printer: Signed [facility]03-27-2025 Discharge summary Author Theo Pozo [facility] Note Date/Time December 12, 2024 4:0 8pm [facility] Medical Records Department [address] [place] [address] Emergency Department Summary 12/12/24 MR#: [id number] Acct: [id number] Name: DUNG HULL Rep #:[id number] : 2000 24 From: Theo Joseph PCP: Care Physician,No Primary Status :REG ER Location: ED HPI History of Present Illness Chief Complaint: Abd Pain PFSH PFSH Home Medications ?Medication ?Instructions ?Recorded ?Last Taken ?Type NK 12/12/24 Unknown History Allergy/AdvReac Type Severity Reaction Status Date / Time latex Allergy Rash Verified 12/12/24 13:33 Family History Grandfather Heart disease Unknown Thyroid cancer Surgical History H/O section Social History current occupational status: employed current occupation: [employer] Smoking Status: Current every day smoker tobacco type: e-cigarettes alcohol intake: never substance use type: does not use caffeine: No what type of physical activity do you participate in: walking frequency: 5-6 times per week seatbelt use: always EXAM Physical Exam Const Vital Signs: 12/12/24 13:31 Temperature 97 F L Temperature Source Temporal Pulse Rate 74 Respiratory Rate 15 Blood Pressure 106/74 Blood Pressure Mean 84 Pulse Ox 100 Oxygen Delivery Method Room Air MDM MDM MDM Narrative Medical decision making narrative: HISTORY OF PRESENT ILLNESS: 24-year-old female presents with concern for abdominal pain. She states she hashad 10 days of abdominal pain. Notes nausea vomiting diarrhea as well. No blood in her vomit. No blood in her stool. No melena. Notes history of otherwise no abdominal surgeries. Denies any urinary complaints. No fever REVIEW OF SYSTEMS: Pertinent positives: Right upper quadrant abdominal pain, nausea vomiting diarrhea Pertinent negatives: Fever, chest pain, urinary complaints, vaginal bleeding or discharge. PHYSICAL EXAM: Nursing triage notes reviewed, Vital signs reviewed Constitutional: please see mdm HENT: MMM Eyes: Pupils equal round and reactive to light, Extraocular muscles intact Neck: No stridor, no JVD, full neck ROM Lungs: Clear to auscultation, No wheezing or rales. No increased work of breathing, no conversational dyspnea, no accessory muscle use, no nasal flaring. No respiratory distress noted Heart: Regular rate and rhythm, No murmurs, No rubs and No gallops, 2+ distal pulses (radial, femoral, posterior tibial) in all extremities Abdomen: Lateral quad TTP, positive Bermudez sign, rigidity, rebound or guarding, no obvious peritoneal signs, no palpable pulsatile abdominal masses, no auscultated abdominal bruit : No CVAT Extremities: No edema Neuro: No new focal neurological deficits, cranial nerves II through XII intact,5/5 strength in all present extremities. Intact sensation to light touch in all present extremities, 2+ reflexes bilateral patella tendons. Skin: No rash or lesions noted MEDICAL DECISION MAKING: Chief Complaint: Abdominal pain External records reviewed: Reviewed prior imaging studies Social determinants of health: Denies alcohol History obtained from others: none Consults: none MDM Narrative: The patient was initially hemodynamically stable, afebrile and nontoxic- appearing. Exam with right upper quadrant TTP, positive Bermudez sign. I considered the following differential diagnosis: AAA, small bowel obstruction, abdominal perforation, appendicitis, pancreatitis, hepatobiliary pathology (acute cholecystitis), mesenteric ischemia, pathology (ie nephrolithiasis, pyelonephritis). I obtained a broad lab and imaging workup to further elucidate etiology of the patient's complaints I initially treated the patient with 1 L normal saline and 4 mg IV Zofran ALL IMAGES (IF OBTAINED) HAVE BEEN PERSONALLY REVIEWED AND INTERPRETED BY MYSELF. CBC without leukocytosis, severe anemia, no thrombocytopenia. Urine test is negative Urinalysis shows no evidence of urinary inflammation suggestive of UTI BMP without evidence of significant electrolyte abnormalities, no acute kidney injury. LFTs show no evidence of hepatobiliary pathology. Right quad ultrasound shows evidence of acute gallbladder pathology The synthesis of the patient's history, physical exam, labs images suggest no acute life-threatening surgical abnormality. I suspect there could be a GI related component including gastritis, esophagitis or peptic ulcer disease. Will encourage close outpatient GI follow-up. Return precautions were discussed The patient and/or family, caregivers express understanding. The patient and/orfamily, caregivers agrees with the plan. Shared decision making: I will have a discussion with the patient and or visitors regarding risk/benefits of further testing or admission. They will be made aware of of the risk/benefits inherent in this decision they will be given the opportunity to voice understanding. Total critical care time today provided was at least 0 minutes. This excludes separately billable procedures. Critical care time (if documented) is secondary to the patient having high probability of clinically significant/life threatening deterioration in the patient's condition which required my urgent intervention. Impression: 1. Acute abdominal pain Dispo: Discharge home This note was generated with [employer] dictation software. It may contain incorrectwords, spelling, and punctuation that were not noted in review of the chart prior to signing. Lab Data Labs: Laboratory Results - last 24 hr 12/12/24 12/12/24 13:45 14:25 WBC 6.5 RBC 4.48 Hgb 13.5 Hct 39.9 MCV 89.1 MCH 30.1 MCHC 33.8 RDW Std Deviation 39.6 RDW Coeff of Ahsan 12.1 Plt Count 279 MPV 11.4 Immature Gran % (Auto) 0.300 Neut % (Auto) 52.9 Lymph % (Auto) 35.0 [place] % (Auto) 10.1 H Eos % (Auto) 0.8 Baso % (Auto) 0.9 Absolute Neuts (auto) 3.4 Absolute Lymphs (auto) 2.26 Nucleated RBC % 0 Sodium 140 Potassium 3.7 Chloride 104 Carbon Dioxide 17.6 L Anion Gap 19 H BUN 11 Creatinine 0.75 Estim Creat Clear Calc 93.06 Est GFR (MDRD) Non-Af 115 BUN/Creatinine Ratio 14.9 Glucose 82 Calcium 9.3 Total Bilirubin 0.52 Direct Bilirubin 0.26 AST 19 ALT 10 Alkaline Phosphatase 55 Total Protein 6.9 Albumin 4.6 Globulin 2.3 Lipase 24 Urine Color Yellow Urine Clarity Clear Urine pH 5.0 Ur Specific Allons 1.030 Urine Protein 30 H Urine Glucose (UA) Normal Urine Ketones 5 H Urine Occult Blood Negative Urine Nitrite Negative Urine Bilirubin Negative Urine Urobilinogen Normal Ur Leukocyte Esterase Negative Urine RBC 0 SEEN Urine WBC 0 SEEN Ur Squamous Epith Cells 0-5 SEEN Urine Bacteria 0 SEEN Urine Mucus 2+ Urine Test Negative Radiography Diagnostic Testing: Clinical Impression(s) from Imaging Studies Gallbladder Ultrasound 12/12/24 14:19 IMPRESSION: 1. No acute abnormality. [facility] T[facility] Chief Complaint: Abd Pain ED Provider: Theo Pozo Dx/Rx/DC Orders Prescriptions: No Action NK Primary Care Provider: Care Physician,No Primary Referrals: Care Physician,No Primary [Primary Care Provider] - Print Language: South African What to do if you have Problems For any increased pain, shortness of breath, bleeding, nausea or vomiting, chestpain, or any unexpected problems, contact your Primary Care Provider. Call [facility] ([phone]) or report to the closest Emergency Room. Call 911 if necessary. 12/12/24 1608 <Electronically signed by Theo Pozo DO> Cosigner Signature (if applicable): CC: No Primary Care Physician ~ Signed [facility] Work Phone: [phone]) 424-815703-27-2025 NoteHNO ID: [id number] Author: RAUL MACKENZIE PA Service: ? Author Type: Physician Special Diet Cook Type: Progress Notes Filed: 12/12/2024 13:23 Note Text: 24-year-old female presents for right upper quadrant abdominal pain. Patient states pain has been present on and off for the past couple weeks, worse recently. She states now pain is constant. She states that she had vomiting yesterday. She has had hot flashes. She does still have her gallbladder. Patient states pain is getting worse and is severe all day long. At this time, patient being referred to ER for abdominal pain workup. Patient agreeable to plan. Will go to ER now.[facility]03-27-2025 History of Present illness Narrative* Raul Mackenzie PA - 12/12/2024 1:22 PM EDT 24-year-old female presents for right upper quadrant abdominal pain. Patient states pain has been present on and off for the past couple weeks, worse recently. She states now pain is constant. She states that she had vomiting yesterday. She has had hot flashes. She does still have her gallbladder. Patient states pain is getting worse and is severe all day long. At this time, patient being referred to ER for abdominal pain workup. Patient agreeable to plan. Will go to ER now. documented in this [facility]12-[facility] Evaluation note* Diagnosis Onset Date Resolution Status Admit Date Ovarian cyst, left acute Decemb er 2023 9:35am Possible exposure to STD noneactive August 19, 2024 9:35am Encounter for routine gynecological examination noneactive [facility] 2023 9:35am [facility] Work Phone: [phone]) 845-266911-28-2023 NotePap Smear Specimen AdequacyNov2022 12:15pmComment.Satisfactory for evaluation. Endocervical and/or squamous metaplasticcells (endocervical component)are present.[facility] INTER[facility]ACED A#[id number] Health Montpelier HospitalComment on above:Satisfactory for evaluation. Endocervical and/or squamous metaplasticcells (endocervical component)are present.08-15-2023 NotePap Smear Specimen AdequacyNov2022 12:15pmComment.Satisfactory for evaluation. Endocervical and/or squamous metaplasticcells (endocervical component)are present.[facility] INTER[facility]ACED A#[id number] Health Montpelier HospitalComment on above:Satisfactory for evaluation. Endocervical and/or squamous metaplasticcells (endocervical component)are present.02-10-2023 History of Present illness Narrative* Kanchan Jones APRN.INTERNATIONAL SOURCING MANAGER - 02/10/2023 2:59 PM EDT PEDIATRIC SICK VISIT SUBJECTIVE: Dung Hull is a 22 year old presents to clinic; concern for hair loss. Patient presents with: Hair Loss: Has been noting increase in hair loss x 1.5 months. Mother has thyroid issues. Was anemic when and was taking iron at that time. Not taking iron now Has 3yo child Has mirena IUD (since of son) Having periods every month Currently on her menses No change in eating habits. No loss of appetite History was obtained from: patient Current symptoms: FEVER: not present at this time EYE SYMPTOMS: not present at this time NASAL CONGESTION: for 5 day(s) EAR SYMPTOMS: not present at this time COUGH: present for 5 day(s) SORE THROAT: not present at this time; hx of sore throat 4 days ago, improving HEADACHE: not present at this time VOMITING: not present at this time NAUSEA: not present at this time DIARRHEA: not present at this time ABDOMINAL PAIN: not present at this time RASH: not present at this time GENERAL: Activity level at child's baseline Appetite: no significant change Sick contacts: No known sick contacts HISTORY: There is no problem list on file for this patient. PAST MEDICAL HISTORY Diagnosis Date Arm fracture, left x2; ~ age 9 yrs History of heavy periods 03/2016 NEGATIVE MEDICAL HISTORY normal color vision PAST SURGICAL HISTORY Procedure Laterality Date NONE Allergies: ALLERGIES Allergen Reactions Latex Rash Medications: levonorgestrel (MIRENA INTRAUTERINE) by INTRAUTERINE route. omeprazole (PRILOSEC) 20 mg capsule Take 1 capsule by mouth once daily. OBJECTIVE: BP 102/60 Pulse 92 Temp 37.1 C (98.7 F) (Temporal Artery) Resp 12 Ht 161 cm (5' 3.39) Wt57 kg (125 lb 12 oz) LMP 02/04/2022 BMI 22.01 kg/m General: alert and active in no apparent distress Head: no patches of hair loss, no rashes or lesions Eyes: conjunctiva clear, PERRL Ears: TMs translucent bilaterally, normal landmarks noted Nose: no rhinorrhea, no mucosal edema OP: no lesions, no erythema Neck: supple, no adenopathy Lymph: no supraclavicular adenopathy, no axillary adenopathy Lungs: clear to auscultation bilaterally, good air exchange, no retractions, no wheezes or crackles CVS: Normal rate, regular rhythm, no murmur Abdomen: soft, nondistended, nontender, no hepatosplenomegaly or masses, and no rebound or guarding Skin: No rashes, lesions or skin changes ASSESSMENT/PLAN: Encounter Diagnosis ICD-10-CM 1. Hair loss L65.9 CBC + DIFF C-REACTIVE PROTEIN (CRP) SED RATE WESTERGREN COMP METABOLIC PANEL TSH BLD T4 FREE/FREE THYROX FERRITIN BLD IRON + TIBC 2. Unexplained weight loss R63.4 UA DIP, URINE (POC) - This provider notes unexplained weight loss. Patient denies calorie restriction or purposeful changes to diet. - Normal urine dip in office - Labs ordered and results pending - Return to clinic as needed based on lab results and report of symptoms Kanchan Jones APRN.INTERNATIONAL SOURCING MANAGER Medical Decision Making: Problems: Moderate: New problem with uncertain prognosis Data: Unique test(s) ordered: 3+ Risk: Low: Low risk from testing/treatment Medical Decision Making Level: 4 - Moderate documented in this encounterPark[facility] Health12-29-2022 History of Present illness Narrative* Eliseo Sears APRN.EDA - 09/15/2022 2:59 PM EST Subjective HPI Nontoxic-appearing female presents urgent care chief plaint headache. Duration of symptoms greater than 2 weeks associated symptoms headache. Did have 1 episode of vomiting. Has not had any nausea orvomiting since. Has tried OTC medications this is helped some for headache management. Denies history of headaches in the past. Denies any acute onset. The pain with movement of neck. Denies any fever body aches chills cough chest pain shortness of breath dizziness visual changes change in bowel orbladder habits. Past medical history prescription medications allergies reviewed. .Patient presents with: Vomiting: [place] x 2 weeks PAST MEDICAL HISTORY Diagnosis Date Arm fracture, left x2; ~ age 9 yrs History of heavy periods 03/2016 NEGATIVE MEDICAL HISTORY normal color vision PAST SURGICAL HISTORY Procedure Laterality Date NONE ALLERGIES Latex MEDICATIONS levonorgestrel (MIRENA INTRAUTERINE) by INTRAUTERINE route. omeprazole (PRILOSEC) 20 mg capsule Take 1 capsule by mouth once daily. FAMILY HISTORY Problem Relation Age of Onset None Mother None Father None Brother None Brother Social History Tobacco Use Smoking status: Some Days Smokeless tobacco: Never Vaping Use Vaping Use: current everyday user Substances: Nicotine, Flavoring Devices: Disposable Substance Use Topics Alcohol use: No Drug use: No BP 110/84 Pulse 60 Temp 36.7 C (98 F) Resp 21 Wt 61.9 kg (136 lb 6.4 oz) LMP 05/13/2022 (Exact Date) SpO2 100% BMI 23.29 kg/m Review of Systems Constitutional: Negative for chills, fever and malaise/fatigue. HENT: Negative for congestion, ear discharge, ear pain, sinus pain and sore throat. Eyes: Negative for blurred vision, pain, discharge and redness. Respiratory: Negative for cough, hemoptysis, sputum production, shortness of breath, wheezing and stridor. Cardiovascular: Negative for chest pain. Gastrointestinal: Negative for abdominal pain, diarrhea, nausea and vomiting. Musculoskeletal: Negative for myalgias. Skin: Negative for itching and rash. Neurological: Positive for headaches. Negative for dizziness. Objective Physical Exam Constitutional: General: She is not in acute distress. Appearance: She is not diaphoretic. HENT: Head: Normocephalic. Mouth/Throat: Mouth: Mucous membranes are moist. Pharynx: Oropharynx is clear. No oropharyngeal exudate or posterior oropharyngeal erythema. Eyes: Conjunctiva/sclera: Conjunctivae normal. Pupils: Pupils are equal, round, and reactive to light. Cardiovascular: Rate and Rhythm: Normal rate and regular rhythm. Heart sounds: Normal heart sounds. Pulmonary: Effort: Pulmonary effort is normal. No tachypnea, accessory muscle usage or respiratory distress. Breath sounds: Normal breath sounds. No stridor. No wheezing, rhonchi or rales. Abdominal: Palpations: Abdomen is soft. Tenderness: There is no abdominal tenderness. Musculoskeletal: Cervical back: Normal range of motion and neck supple. No rigidity or tenderness. Lymphadenopathy: Cervical: No cervical adenopathy. Skin: General: Skin is warm and dry. Neurological: General: No focal deficit present. Mental Status: She is alert and oriented to person, place, and time. Mental status is at baseline. ASSESSMENT/PLAN: 1. Headache, unspecified headache type - ICD9: 784.0, ICD10: R51.9 Patient rating pain 9-10 out of 10 at times. Has on successfully been able to break headache cycle.Headache has been present for greater than 2 weeks. Recommended patient follow-up with the ED for further evaluation care for possible IV medication and fluids to break headache cycle. We will follow-up with PCP 2 to 3 days for reevaluation. Eliseo Sears APRN.EDA documented in this encounterParkview Health06-13-2022 History of Present illness Narrative* Blanche Marshall RDMS - 02/28/2022 11:30 AM EDT Radiology Service Progress Note PATIENT NAME: Dung Hull DATE OF SERVICE: February 28, 2022 TIME: 11:56 AM PATIENT IDENTITY VERIFICATION COMPLETED USING TWO (2) IDENTIFIERS: Name and Date of confirmedby patient verbally. FALL SCREENING: Has the patient had 2 falls in the last year or 1 fall with injury or currently using an Ambulatory Assistive Device (Walker, Cane, Wheelchair, Crutches, etc.)? No PATIENT GENDER DATA: Female. status: : No status: N/A PATIENT RELEVANT IMPLANT DATA REVIEWED: Not Applicable RADIOLOGY DEPARTMENT: Ultrasound PERIPHERAL IV DATA: Not applicable SIGNED BY: Blanche Marshall RDMS RVT February 28, 2022 11:56 AM documented in this encounterParkview Health06-13-2022 Instructions* Patient Instructions* Lisa Britt APRN.CNP - 02/28/2022 11:08 AM EDT Blood work US - RUQ Start omeprazole 20mg empty stomach and wait 30 min before eating Avoid NSAIDs (such as Advil, Ibuprofen, Excedrin, Mobic), tobacco, alcohol, carbonated beverages, caffeine, chocolate, tomato based sauces, spicy/fatty foods, and peppermint Avoid eating large meals. Avoid eating less than 3 hours before bed. Weight loss. Elevate the head of the bed 6 inches, or at least invest in a wedge pillow. Can f/u through - for updates Follow up 3 months documented in this encounterParkview Health06-13-2022 History of Present illness Narrative* Lisa Britt APRN.CNP - 02/28/2022 10:27 AM EDT CHIEF COMPLAINT: No chief complaint on file. This consult was requested by Kanchan Jones APR* for an opinion regarding Abdominal pain . Myfinal recommendations will be communicated to the requesting health care provider by way of the shared medical record for internal providers or letter via the [employer] for external providers. Dung Hull is a 21 year old female who presents for nausea, vomiting and loose stools. HPI: PAtient reports having 2 episodes of blood in her vomit. She reports times she wakes up feels sharppain and then will vomit. Symptoms of having been occurring off and on for a few months now. She reports at night will have stomach pains and this will happen off and on - She denies coughing at night, denies heartburn or regurgitation. She reports having a BM once or twice daily she reports stools are loose usually in the mornings. She reports when her stomach starts to hurt she will have loose BM. She episodes only happen in the morning only and followed by loose stools. Denies black stools or blood in stools. DEnies unintentional weight loss She reports she is taking pepcid 10mg in the morning and this has been helping the pain in her stomach go away. She reports taking ibuprofen 2-3 times during the day for a couple months- she reports she was taking this for abdominal pain. She also reports history of acid reflux when she was . Record Review: [facility] / Outside records reviewed. PAST MEDICAL HISTORY Diagnosis Date Arm fracture, left x2; ~ age 9 yrs History of heavy periods 03/2016 NEGATIVE MEDICAL HISTORY normal color vision PAST SURGICAL HISTORY Procedure Laterality Date NONE Allergies: ALLERGIES Allergen Reactions Latex Rash Medications: famotidine (PEPCID AC) 10 mg tablet Take 10 mg by mouth once daily as needed. FAMILY HISTORY Problem Relation Age of Onset None Mother None Father None Brother None Brother Employer And Job Title: None on file Years Of Education Completed: Not specified Marital Status: Single Social History Tobacco Use Smoking status: Current Some Day Smoker Smokeless tobacco: Never Used Vaping Use Vaping Use: current everyday user Substances: Nicotine, Flavoring Devices: Disposable Substance Use Topics Alcohol use: No Drug use: No Review of Systems: Review of Systems Gastrointestinal: Positive for abdominal distention, abdominal pain, constipation, diarrhea and nausea. All other systems reviewed and are negative. Are you taking any blood thinners? No Physical Examination: LMP 02/18/2021 Physical Exam Constitutional: Appearance: Normal appearance. She is normal weight. HENT: Head: Normocephalic and atraumatic. Eyes: Extraocular Movements: Extraocular movements intact. Pupils: Pupils are equal, round, and reactive to light. Cardiovascular: Rate and Rhythm: Normal rate and regular rhythm. Pulses: Normal pulses. Heart sounds: Normal heart sounds. Pulmonary: Effort: Pulmonary effort is normal. Breath sounds: Normal breath sounds. Abdominal: General: Abdomen is flat. Bowel sounds are normal. Palpations: Abdomen is soft. Tenderness: There is abdominal tenderness in the right upper quadrant. Musculoskeletal: General: Normal range of motion. Cervical back: Normal range of motion and neck supple. Skin: General: Skin is warm and dry. Neurological: General: No focal deficit present. Mental Status: She is alert and oriented to person, place, and time. Psychiatric: Mood and Affect: Mood normal. Behavior: Behavior normal. ASSESSMENT: Nausea and vomiting, unspecified vomiting type PLAN: Assessment/Plan (R10.11) RUQ pain (primary encounter diagnosis) (R11.2) Nausea and vomiting, unspecified vomiting type 1. Nausea and vomiting, unspecified vomiting type - CONSULT TO GASTROENTEROLOGY - omeprazole (PRILOSEC) 20 mg capsule; Take 1 capsule by mouth once daily. Dispense: 30 capsule; Refill: 1 - US ABD RT UPPER QUADRANT; Future - LIPASE BLD; Future - COMP METABOLIC PANEL; Future 2. RUQ pain - omeprazole (PRILOSEC) 20 mg capsule; Take 1 capsule by mouth once daily. Dispense: 30 capsule; Refill: 1 - US ABD RT UPPER QUADRANT; Future - LIPASE BLD; Future - COMP METABOLIC PANEL; Future Follow up in office 3 months/PRN. Recommended to please call office/go to ER if fever, chills, chest pain, SOB, diarrhea, nausea, emesis, worsening abdominal pain, dehydration occurs I spent a total of 30 minutes on the date of the service which included preparing to see the patient, [id number] patient care, completing clinical documentation, obtaining and/or reviewing separately obtained history, performing a medically appropriate examination, counseling and educating the pat ient/family/caregiver, ordering medications, tests, or procedures, communicating with other HCPs (not separately reported), independently interpreting results (not separately reported), communicatingresults to the patient/family/caregiver, and care coordination (not separately reported). Lisa Britt APRN.CNP DATE: 02/28/22 TIME: 10:27 AM documented in this encounterParkview Health06-09-2022 Instructions* Patient Instructions* Kanchan Jones APRN.CNP - 02/24/2022 1:44 PM EDT 5 to Go!TM Healthy Kids Inside & Out 5 Eat FIVE fruits and veggies a day 4 Give and get FOUR compliments a day 3 Consume THREE calcium products a day 2 Limit media time to TWO hours a day 1 Get at least ONE hour of exercise a day 0 Consume ZERO sugar-sweetened drinks Go! Be healthy, inside and out! [email or web address] documented in this encounterParkview Health06-09-2022 History of Present illness Narrative* Kanchan Jones APRN.EDA - 02/24/2022 1:40 PM EDT PEDIATRIC SICK VISIT SERVICE DATE: 02/24/2022 SUBJECTIVE: Dung Hull is a 21 year old female presenting to clinic for evaluation of vomiting and abdominalpain. Patient has history of bloody emesis twice. The first episode occurred about 2-3 months ago. She vomited blood again yesterday morning--luke sized. Was having stomach pain at that time and then threw up. Mom gave her pepcid which she took yesterday and this morning with some relief. Mom with hx of ulcers Recent history of vomiting, about 3-4 times monthly along with stomach pain. Only occasional heartburn, reflux symptoms abd pain can be very severe and sharp pain making it difficult to walk, usually below umbilicus butsometimes shoots up towards ribs Upon first episode of bloody emesis, evaluated at [facility] ED. Patient reports a scope was recommended without sedation, and patient refused. History was obtained from: patient HISTORY: There is no problem list on file for this patient. PAST MEDICAL HISTORY Diagnosis Date Arm fracture, left x2; ~ age 9 yrs History of heavy periods 03/2016 NEGATIVE MEDICAL HISTORY normal color vision PAST SURGICAL HISTORY Procedure Laterality Date NONE Allergies: ALLERGIES Allergen Reactions Latex Rash Medications: famotidine (PEPCID AC) 10 mg tablet Take 10 mg by mouth once daily as needed. REVIEW OF SYSTEMS: GENERAL: Negative for fevers or recent illness, negative for weight loss HEENT: Negative for congestion or rhinorrhea. RESPIRATORY: Negative for cough, wheezing or respiratory distress GI: Positive for vomiting and abdominal pain, also hx of intermittent diarrhea SKIN: Negative for lesions, rash, and itching. OBJECTIVE: BP 110/68 Pulse 84 Temp 36.9 C (98.4 F) (Temporal Artery) Resp 12 Wt 65.8 kg (145 lb) LMP02/18/2021 (Exact Date) No General: alert and active in no apparent distress Eyes: conjunctiva clear, PERRL Ears: TMs translucent: bilaterally TMs clear: bilaterally Nose: no erythema or exudate OP: moist without lesions Neck: supple, no adenopathy Lungs: clear to auscultation bilaterally, good air exchange, no retractions CVS: Normal rate, regular rhythm, no murmur Abdomen: soft, nondistended, nontender, no hepatosplenomegaly or masses, no rebound or guarding Skin: No rashes, lesions or skin changes ASSESSMENT/PLAN: Encounter Diagnosis ICD-10-CM 1. Nausea and vomiting, unspecified vomiting type R11.2 CONSULT TO GASTROENTEROLOGY 2. Hematemesis with nausea K92.0 - Recommend further evaluation by gastroenterology. Consult order entered. Appt scheduled for 03/01/22. - May continue pepcid if offering relief - Return to clinic for persistent or worsening symptoms, or other concerns. SIGNATURE: Kanchan Jones APRN.CNP PATIENT NAME: Dung Hull DATE: February 24, 2022 TIME: 1:40 PM documented in this encounterUniversity [facility] note Author Nicole Caal [facility] Note Date/Time April 30, 2025 5: 10pm [facility] Medical Records Department [address] [place] [id number] Anesthesia Postop Eval II 04/30/25 1636 MR#: [id number] Acct: [id number] Name: DUNG HULL Rep #:[id number] : 2000 25 From: Nicole Caal CRNA PCP: Care Physician,No Primary Status :REG SDC Y Race: C Location: [place] [address] Anesthesia Postop Eval I Sum Postop Eval Completion status Anesthesia document: Postop Eval 1 completed: Yes Anesthesia Postop Eval I Summary Anesthesia Postop Eval I Summary: Anesthesia Postop Eval I: Assessment Summary Airway patent Yes 04/30/25 15:00 SOLUTION CONSULTANT.JDEF Spontaneous unlabored Yes 04/30/25 15:00 SOLUTION CONSULTANT.JDEF respirations Mental status Awake 04/30/25 15:00 SOLUTION CONSULTANT.JDEF nausea No 04/30/25 15:00 SOLUTION CONSULTANT.JDEF Vomiting No 04/30/25 15:00 SOLUTION CONSULTANT.JDEF Anesthesia Postop Eval I: Fluid Summary Crystalloid volume administer 1,000 04/30/25 15:00 SOLUTION CONSULTANT.JDEF (ml) Colloids volume administered ( ml) Blood Product volume administered (ml) Total IV fluid infused 1,000 04/30/25 15:00 SOLUTION CONSULTANT.JDEF Anesthesia Postop Eval I: Summary Notes Anesthesia Complication No 04/30/25 15:00 SOLUTION CONSULTANT.JDEF Anesthesia Complication Comment: Post-operative progress note Anesthesia: Postop Eval II Evaluation Mental status: Awake Pain Level: 2 nausea: No Vomiting: No 04/30/25 1636 <Electronically signed by Nicole whitehead SOLUTION CONSULTANT> Date _ Nicole Caal CRNA Cosigner Signature: Date CC: ~ Signed [facility] Work Phone: Evaluation note* Diagnosis Nausea and vomiting, unspecified vomiting type- Primary Hematemesis with nausea documented in this encounter [facility]* Diagnosis RUQ pain- Primary Abdominal pain, right upper quadrant Nausea and vomiting, unspecified vomiting type documented in this encounter [facility]* Diagnosis Nausea and vomiting, unspecified vomiting type RUQ pain Abdominal pain, right upper quadrant documented [facility]* Diagnosis Onset Date Resolution Status Encounter for routine gynecological examination noneactive [facility] Work Phone: Evaluation note* Diagnosis Headache, unspecified headache type- Primary [facility] Diagnosis Hair loss- Primary Alopecia, unspecified Unexplained weight loss Loss of weight [facility] Diagnosis Onset Date Resolution Status Pelvic pain acute Possible exposure to STD non eactive IUD check up noneactive Encounter for routine gynecological examination noneactive [facility] Work Phone: Evaluation note* Diagnosis Onset Date Resolution Status Pelvic pain acute [facility] Work Phone: Evaluation note* Diagnosis RUQ pain- Primary Abdominal pain, right upper quadrant [facility] Additional Instructions Thank you for trusting us with your care today! Your labs and images were reassuring. Specifically has no sign of acute gallbladder abnormalities. Please take Tylenol (2 pills, 650 mg), ibuprofen (2 pills, 400 mg) every 6 hours as needed for pain and fever control. Please return to the emergency department if your symptoms change or worsen. Please follow with your Gastroenterology for further outpatient evaluation and management.[facility] Work Phone: Hospital Discharge instructionsAdditional Instructions Your workup today was not consistent with acute cholecystitis or inflammation/blockage of the gallbladder. Please continue to push fluids as you did have some findings of dehydration in your urine but they were only mild. You did not have any abnormalities of your liver/kidneys/electrolytes. I spoke with the general surgery who recommend calling the office to see if you get your appointment moved up. In the meantime as we discussed try to drink protein drinks if you can tolerate them. You been given 2 different nausea medications to use as needed. Return if you develop fever, worsening pain or progression of [facility] Work Phone: Reason for referral (narrative)* Diagnostic Procedure Only (Routine) - Closed Specialty Diagnoses / Procedures Referred By Contac t Referred To Contact US IMAGING Diagnoses Nausea and vomiting, unspecified vomiting type RUQ pain Procedures US ABD RT UPPER QUADRANT US ABDOMINAL REAL TIME W/IMAGE LIMITED Lisa Britt APRN.INTERNATIONAL SOURCING MANAGER [address] [place] [address] Us Imaging Referral ID Status Reason Start Date Expiration Date V isits Requested Visits Authorized [id number] Closed Auto-Generate d Referral 02/28/2022 03/30/2023 1 1 [facility] for referral (narrative)* Diagnostic Procedure Only (Routine) - Closed Specialty Diagnoses / Procedures Referred By Kaci singh Referred To Contact US IMAGING Diagnoses Nausea and vomiting, unspecified vomiting type RUQ pain Procedures US ABD RT UPPER QUADRANT US ABDOMINAL REAL TIME W/IMAGE LIMITED Lisa Britt APRN.INTERNATIONAL SOURCING MANAGER [address] [place] [address] Us Imaging Referral ID Status Reason Start Date Expiration Date V isits Requested Visits Authorized [id number] Closed Auto-Generate d Referral 02/28/2022 03/30/2023 1 1 [facility] for referral (narrative)No reason for referral information [facility] Work Phone: Reason for Referral Specialty Diagnoses / Procedures Referred By Kaci singh Referred To Contact Gastroenterology Diagnoses Nausea and vomiting, unspecified vomiting type Procedures CONSULT TO GASTROENTEROLOGY OFFICE/OUTPATIENT [facility] 60-74 MINUTES Kanchan Jones APRN.INTERNATIONAL SOURCING MANAGER [address] [place] [address] Referral ID Status Reason Start Date Expiration Date Visits Requested Visits Authorized [id number] Authorized PCP Requested Referral 02/24/2022 02/24/2023 1 1 Chief Complaint and Reason for Visit Chief Complaint Annual (CLASSROOM COORDINATOR) Reason for Visit Encounter for routin e gynecological examination Chief Complaint Annual (CLASSROOM COORDINATOR) MIGRAINE Reason for Visit Encounter for routin e gynecological examination Chief Complaint Annual (CLASSROOM COORDINATOR) Reason for Visit Pelvic pain Possible exposure to STD IUD check up Encounter for routine gynecological examination Chief Complaint Annual (CLASSROOM COORDINATOR) PELVIC AND PERINEAL PAIN Reason for Visit Pelvic pain Possible exposure to STD IUD check up Encounter for routine gynecological examination Chief Complaint IUD CHK, POSSIBLE DC SS PLACED IUD PLACEMENT Reason for Visit Pelvic pain Chief Complaint Admit Date Annual (CLASSROOM COORDINATOR) August 19, 2024 9 :35am abd pain December 12, 2024 1:3 1pm Reason for Visit Admit Date Ovarian cyst, left August 19, 2024 9 :35am Possible exposure to STD August 19 024 9:35am Encounter for routine gynecological exam ination August 19, 2024 9:35am Chief Complaint Admit Date abd pain December 12, 2024 1:3 1pm ED follow up December 17, 2024 9:24 am Right upper quadrant pain January 10 10:37am Discuss HiDA Scan. January 17, 2025 12:29p m Reason for Visit Admit Date Diarrhea December 17, 2024 9:24 am Nausea & vomiting December 17, 2024 9:24 am RUQ pain December 17, 2024 9:24 am Diarrhea January 17, 2025 12:29p m Nausea & vomiting January 17, 2025 12:29p m RUQ pain January 17, 2025 12:29p m Chief Complaint Admit Date abd pain December 12, 2024 1:3 1pm ED follow up December 17, 2024 9:24 am Right upper quadrant pain January 10 10:37am Discuss HiDA Scan. January 17, 2025 12:29p m Diarrhea February 11, 2025 12:53 pm Chief Complaint Admit Date abd pain December 12, 2024 1:3 1pm ED follow up December 17, 2024 9:24 am Right upper quadrant pain January 10 10:37am Discuss HiDA Scan. January 17, 2025 12:29p m Diarrhea February 11, 2025 12:53 pm DIARREA February 20, 2025 7:46a m Chief Complaint Admit Date abd pain December 12, 2024 1:3 1pm ED follow up December 17, 2024 9:24 am Right upper quadrant pain January 10 10:37am Discuss HiDA Scan. January 17, 2025 12:29p m Diarrhea February 11, 2025 12:53 pm DIARREA February 20, 2025 7:46a m DISCUSS OPTIONS 2025 3:37p m Chief Complaint Admit Date abd pain December 12, 2024 1:3 1pm ED follow up December 17, 2024 9:24 am Right upper quadrant pain January 10 10:37am Discuss HiDA Scan. January 17, 2025 12:29p m Diarrhea February 11, 2025 12:53 pm DIARREA February 20, 2025 7:46a m DISCUSS OPTIONS 2025 3:37p m ABDOMINAL PAIN April 10, 2025 9:03 am Reason for Visit Admit Date Diarrhea December 17, 2024 9:24 am Nausea & vomiting December 17, 2024 9:24 am RUQ pain December 17, 2024 9:24 am Diarrhea January 17, 2025 12:29p m Nausea & vomiting January 17, 2025 12:29p m RUQ pain January 17, 2025 12:29p m Diarrhea 2025 3:37p m Nausea & vomiting 2025 3:37p m RUQ pain 2025 3:37p m Chief Complaint Admit Date Right upper quadrant pain January 10 10:37am Discuss HiDA Scan. January 17, 2025 12:29p m Diarrhea February 11, 2025 12:53 pm DIARREA February 20, 2025 7:46a m DISCUSS OPTIONS 2025 3:37p m ABDOMINAL PAIN April 10, 2025 9:03 am GALLBLADDER April 21, 2025 9:3 5am Reason for Visit Admit Date Diarrhea January 17, 2025 12:29p m Nausea & vomiting January 17, 2025 12:29p m RUQ pain January 17, 2025 12:29p m Diarrhea 2025 3:37p m Nausea & vomiting 2025 3:37p m RUQ pain 2025 3:37p m Chief Complaint Admit Date Right upper quadrant pain January 10 10:37am Discuss HiDA Scan. January 17, 2025 12:29p m Diarrhea February 11, 2025 12:53 pm DIARREA February 20, 2025 7:46a m DISCUSS OPTIONS 2025 3:37p m ABDOMINAL PAIN April 10, 2025 9:03 am GALLBLADDER April 21, 2025 9:3 5am Laparoscopic, Cholecystectomy with IOC A ugust 2024 10:12am Laparoscopic, Cholecystectomy with IOC A ugust 2024 1:05pm Reason for Visit Admit Date Diarrhea January 17, 2025 12:29p m Nausea & vomiting January 17, 2025 12:29p m RUQ pain January 17, 2025 12:29p m Diarrhea 2025 3:37p m Nausea & vomiting 2025 3:37p m RUQ pain 2025 3:37p m Biliary dyskinesia April 21, 2025 9:3 5am RUQ pain April 30, 2025 10 :12am Family History Relationship Condition Age at Onset Recorded Date/T verenice grandfather Cardiac disease Unknown Not Specified Malignant neoplasm of thyroid gland Unkn own Relationship Condition Age at Onset Recorded Date/T verenice grandfather Cardiac disease Unknown unrelated friend Malignant neoplasm of thyroid gland U nknown Relationship Condition Age at Onset Recorded Date/T verenice Not Specified Disorder of liver Unknown Malignant neoplasm of pancreas Unknown Malignant neoplasm of bone Unknown Anxiety Unknown Malignant neoplasm Unknown grandfather Cardiac disease Unknown unrelated friend Malignant neoplasm of thyroid gland U nknown Advance Directives Advance Directive Response Recorded Date/ Time Living Will No August 03 9:31am Power of Carburetor Mechanic No August 03, 2021 9:31am Advance Directive Response Recorded Date/ Time Living Will No September 16 10:21am Power of Carburetor Mechanic No September 16, 2022 10:21am Advance Directive Response Recorded Date/ Time Living Will No April 15, 2023 11:34am Power of Carburetor Mechanic No April 15 11:34am Advance Directive Response Recorded Date/ Time Living Will No April 15, 2023 12:34pm Power of Carburetor Mechanic No April 15 12:34pm Advance Directive Response Recorded Date/ Time Living Will No April 15, 2023 12:34pm Do you have a Healthcare Power of Carburetor Mechanic? No April 15, 2023 12:34pm Living Will No December 12, 2024 1:47pm Do you have a Healthcare Power of Carburetor Mechanic? No December 12, 2024 1:47pm Advance Directive Response Recorded Date/ Time Living Will No December 12, 2024 1:47pm Do you have a Healthcare Power of Carburetor Mechanic? No December 12, 2024 1:47pm Advance Directive Response Recorded Date/ Time Living Will No December 12, 2024 1:47pm Do you have a Healthcare Power of Carburetor Mechanic? No December 12, 2024 1:47pm Do you have a Healthcare Power of Carburetor Mechanic? No April 10, 2025 9:18am Advance Directive Response Recorded Date/ Time Do you have a Healthcare Power of Carburetor Mechanic? No April 10, 2025 9:18am Advance Directive Response Recorded Date/ Time Do you have a Healthcare Power of Carburetor Mechanic? No April 10, 2025 9:18am Do you have a Healthcare Power of Carburetor Mechanic? No April 23, 2025 1:04pm Summary Purpose Additional Source Comments Source Comments (unrecognize d section and content) In the event this informatio n is protected by the Federal Confidentiality of Alcohol and Drug Abuse Patient Records regulations: The Federal rules restrict any use of the information to criminally investigate or prosecute any alcohol or drug abuse patient.[facility] the event this information is protected by the Federal Confidentiality of Alcohol and Drug Abuse Patient Records regulations: The Federal rules restrict any use of the information to criminally investigate or prosecute any alcohol or drug abuse patient.[facility] the event this information is protected by the Federal Confidentiality of Alcohol and Drug Abuse Patient Records regulations: The Federal rules restrict any use of the information to criminally investigate or prosecute any alcohol or drug abuse patient.[facility] the event this information is protected by the Federal Confidentiality of Alcohol and Drug Abuse Patient Records regulations: The Federal rules restrict any use of the information to criminally investigate or prosecute any alcohol or drug abuse patient.[facility] the event this information is protected by the Federal Confidentiality of Alcohol and Drug Abuse Patient Records regulations: The Federal rules restrict any use of the information to criminally investigate or prosecute any alcohol or drug abuse patient.[facility] the event this information is protected by the Federal Confidentiality of Alcohol and Drug Abuse Patient Records regulations: The Federal rules restrict any use of the information to criminally investigate or prosecute any alcohol or drug abuse patient.[facility] the event this information is protected by the Federal Confidentiality of Alcohol and Drug Abuse Patient Records regulations: The Federal rules restrict any use of the information to criminally investigate or prosecute any alcohol or drug abuse patient.[facility] Reason for Visit (unrecogniz ed section and content) Reason Comments Bloody emesis Noted one episode 2- 3 months ago, and then again yesterday morning Vomiting Having 3-4 episodes monthly, random times- this has been ongoing since September. Abdominal Pain Frequent burning sandi n at stomach. Tried OTC pepcid with relief noted. Reason Comments Abdominal Pain sharp and burning 7: 10 on pain scale off and on treating with pepcid Vomiting 'luke size blood cl ots 2 and described it as a pink/red in color Diarrhea 2 times a week. shemar g 2-3 times an episodes, very loose stools Constipation 2-3 times a week Specialty Diagnoses / Procedures Referred By Kaci singh Referred To Contact Gastroenterology Diagnoses Nausea and vomiting, unspecified vomiting type Procedures CONSULT TO GASTROENTEROLOGY OFFICE/OUTPATIENT [facility] 60-74 MINUTES Kanchan Jones APRN.INTERNATIONAL SOURCING MANAGER [address] [place] [address] Referral ID Status Reason Start Date Expiration Date V isits Requested Visits Authorized [id number] Closed PCP Requested Referral 02/24/2022 02/24/2023 1 1 Reason Comments Radiology US Specialty Diagnoses / Procedures Referred By Kaci singh Referred To Contact US IMAGING Diagnoses Nausea and vomiting, unspecified vomiting type RUQ pain Procedures US ABD RT UPPER QUADRANT US ABDOMINAL REAL TIME W/IMAGE LIMITED Lisa Britt APRN.INTERNATIONAL SOURCING MANAGER [address] [place] [address] Us Imaging Referral ID Status Reason Start Date Expiration Date V isits Requested Visits Authorized [id number] Closed Auto-Generate d Referral 02/28/2022 03/30/2023 1 1 Reason Comments Vomiting [place] x 2 weeks Reason Comments Hair Loss Has been noting incr ease in hair loss x 1.5 months. Mother has thyroid issues. Reason Comments No Show Letter #1 Care Teams (unrecognized sec tion and content) In School Suspension Aide Relationship Specialty Start Date End Date Jacey Domínguez MD [address] [place] [address] PCP - General Pediatrics 07/18/18 In School Suspension Aide Relationship Specialty Start Date End Date Jacey Domínguez MD [address] [place] [address] PCP - General Pediatrics 07/18/18 In School Suspension Aide Relationship Specialty Start Date End Date Jacey Domínguez MD [address] [facility] [place], [place] [id number] PCP - General Pediatrics 07/18/18 In School Suspension Aide Relationship Specialty Start Date End Date Jacey Domínguez MD [address] [place], [place] [id number] PCP - General Pediatrics 07/18/18 In School Suspension Aide Relationship Specialty Start Date End Date Jacey Domínguez MD [address] [facility], [place] [id number] PCP - General Pediatrics 07/18/18 Team Status: Active Member Role Status Dates Dr. Jacey Domínguez MD Family Provider Active Dr. Jacey Domínguez MD Primary Care Provider Active Team Status: Inactive Member Role Status Dates Dr. Jacey Domínguez MD Primary Care Provider, Refer ring Provider Active Mairxa Krueger [employer], [employer] HOME [employer]ONSTRATOR-C Attending Provider Active Team Status: Inactive Member Role Status Dates Dr. Jacey Domínguez MD Primary Care Provider Active Marixa Krueger [employer], [employer] HOME DEMONSTRATOR-C Attending Provider, Referring Provider Active Team Status: Inactive Member Role Status Dates Dr. Jacey Domínguez MD Primary Care Provider, Refer ring Provider Active Mayda Santoro CNM Attending Provider Active Team Status: Inactive Member Role Status Dates Dr. Jacey Domíngeuz MD Primary Care Provider Active Mayda Santoro CNM Attending Provider, Referring Pro vider Active Team Status: Active Member Role Status Dates No Primary Care Physician Primary Care Provider Active Team Status: Inactive Member Role Status Dates Dr. Jacey Domínguez MD Primary Care Provider Active Start: August 19, 2024 End: August 19, 2024 Dr. Jacey Domínguez MD Referring Provider Active Start: August 19, 2024 End: August 19, 2024 Marixa Krueger [employer]ATOR, [employer] HOME DEMONSTRATOR-C Attending Provider Active Start: August 19, 2024 End: August 19, 2024 Team Status: Inactive Member Role Status Dates Dr. Jacey Domínguez MD Primary Care Provider Active Start: August 19, 2024 End: August 19, 2024 Marixa Krueger [employer]ATOR, COUNTY HOME DEMONSTRATOR-C Attending Provider Active Start: August 19, 2024 End: August 19, 2024 Marixa Krueger [employer] HOME [employer]ONSTRATOR, COUNTY HOME DEMONSTRATOR-C Referring Provider Active Start: August 19, 2024 End: August 19, 2024 Team Status: Inactive Member Role Status Dates No Primary Care Physician Primary Care Provider Active Start: December 12, 2024 End: December 12, 2024 Dr. Theo Pozo DO Emergency Provider Active Start: December 12, 2024 End: December 12, 2024 Team Status: Inactive Member Role Status Dates No Primary Care Physician Primary Care Provider Active Start: December 12, 2024 End: December 12, 2024 Dr. Theo Pozo DO Attending Provider Active Start: December 12, 2024 End: December 12, 2024 Dr. Theo Pozo DO Emergency Provider Active Start: December 12, 2024 End: December 12, 2024 Team Status: Inactive Member Role Status Dates No Primary Care Physician Primary Care Provider Active Start: December 17, 2024 End: December 17, 2024 No Primary Care Physician Referring Provider Active Start: December 17, 2024 End: December 17, 2024 Oneyda Bustamante NP-C Attending Provider Active Start: December 17, 2024 End: December 17, 2024 Team Status: Inactive Member Role Status Dates No Primary Care Physician Primary Care Provider Active Start: January 10, 2025 End: January 10, 2025 Oneyda Bustamante [employer]ON[employer]ATOR-C Attending Provider Active Start: January 10, 2025 End: January 10, 2025 Oneyda Bustamante [employer] HOME [employer]ON[employer]ATOR-C Referring Provider Active Start: January 10, 2025 End: January 10, 2025 Team Status: Inactive Member Role Status Dates No Primary Care Physician Primary Care Provider Active Start: January 17, 2025 End: January 17, 2025 No Primary Care Physician Referring Provider Active Start: January 17, 2025 End: January 17, 2025 Dr. Marc Maynard DO Attending Provider Active Start: January 17, 2025 End: January 17, 2025 Team Status: Inactive Member Role Status Dates No Primary Care Physician Primary Care Provider Active Start: January 17, 2025 End: January 17, 2025 Dr. Marc Maynard DO Attending Provider Active Start: January 17, 2025 End: January 17, 2025 Dr. Marc Maynard DO Referring Provider Active Start: January 17, 2025 End: January 17, 2025 Team Status: Inactive Member Role Status Dates No Primary Care Physician Primary Care Provider Active Start: February 11, 2025 End: February 11, 2025 Dr. Marc Maynard DO Attending Provider Active Start: February 11, 2025 End: February 11, 2025 Dr. Marc Maynard DO Referring Provider Active Start: February 11, 2025 End: February 11, 2025 Team Status: Inactive Member Role Status Dates No Primary Care Physician Primary Care Provider Active Start: February 20, 2025 End: February 20, 2025 Dr. Marc Maynard DO Attending Provider Active Start: February 20, 2025 End: February 20, 2025 Dr. Marc Maynard DO Referring Provider Active Start: February 20, 2025 End: February 20, 2025 Team Status: Active Member Role/Relationship Status Dates No Primary Care Physician Primary Care Provider Active Team Status: Inactive Member Role/Relationship Status Dates No Primary Care Physician Primary Care Provider Active Start: December 12, 2024 End: December 12, 2024 Dr. Theo Pozo DO Attending Provider Active Start: December 12, 2024 End: December 12, 2024 Dr. Theo Pozo DO Emergency Provider Active Start: December 12, 2024 End: December 12, 2024 Team Status: Inactive Member Role/Relationship Status Dates No Primary Care Physician Primary Care Provider Active Start: December 17, 2024 End: December 17, 2024 No Primary Care Physician Referring Provider Active Start: December 17, 2024 End: December 17, 2024 CHRISTAL Krishnamurthy Attending Provider Active Start: December 17, 2024 End: December 17, 2024 Team Status: Inactive Member Role/Relationship Status Dates No Primary Care Physician Primary Care Provider Active Start: January 10, 2025 End: January 10, 2025 CHRISTAL Krishnamurthy Attending Provider Active Start: January 10, 2025 End: January 10, 2025 CHRISTAL Krishnamurthy Referring Provider Active Start: January 10, 2025 End: January 10, 2025 Team Status: Inactive Member Role/Relationship Status Dates No Primary Care Physician Primary Care Provider Active Start: January 17, 2025 End: January 17, 2025 No Primary Care Physician Referring Provider Active Start: January 17, 2025 End: January 17, 2025 Dr. Marc Maynard DO Attending Provider Active Start: January 17, 2025 End: January 17, 2025 Team Status: Inactive Member Role/Relationship Status Dates No Primary Care Physician Primary Care Provider Active Start: January 17, 2025 End: January 17, 2025 Dr. Marc Maynard DO Attending Provider Active Start: January 17, 2025 End: January 17, 2025 Dr. Marc Maynard DO Referring Provider Active Start: January 17, 2025 End: January 17, 2025 Team Status: Inactive Member Role/Relationship Status Dates No Primary Care Physician Primary Care Provider Active Start: February 11, 2025 End: February 11, 2025 Dr. Marc Maynard DO Attending Provider Active Start: February 11, 2025 End: February 11, 2025 Dr. Marc Maynard DO Referring Provider Active Start: February 11, 2025 End: February 11, 2025 Team Status: Inactive Member Role/Relationship Status Dates No Primary Care Physician Primary Care Provider Active Start: February 20, 2025 End: February 20, 2025 Dr. Marc Maynard DO Attending Provider Active Start: February 20, 2025 End: February 20, 2025 Dr. Marc Maynard DO Referring Provider Active Start: February 20, 2025 End: February 20, 2025 Team Status: Inactive Member Role/Relationship Status Dates No Primary Care Physician Primary Care Provider Active Start: 2025 End: 2025 No Primary Care Physician Referring Provider Active Start: 2025 End: 2025 Dr. Marc Maynard DO Attending Provider Active Start: 2025 End: 2025 Team Status: Inactive Member Role/Relationship Status Dates No Primary Care Physician Primary Care Provider Active Start: April 10, 2025 End: April 10, 2025 Dr. Anya Estrada DO Emergency Provider Active Start: April 10, 2025 End: April 10, 2025 Team Status: Inactive Member Role/Relationship Status Dates No Primary Care Physician Primary Care Provider Active Start: January 10, 2025 End: January 10, 2025 CHRISTAL Krishnamurthy Attending Provider Active Start: January 10, 2025 End: January 10, 2025 CHRISTAL Krishnamurthy Referring Provider Active Start: January 10, 2025 End: January 10, 2025 Team Status: Inactive Member Role/Relationship Status Dates No Primary Care Physician Primary Care Provider Active Start: January 17, 2025 End: January 17, 2025 No Primary Care Physician Referring Provider Active Start: January 17, 2025 End: January 17, 2025 Dr. Marc Maynard DO Attending Provider Active Start: January 17, 2025 End: January 17, 2025 Team Status: Inactive Member Role/Relationship Status Dates No Primary Care Physician Primary Care Provider Active Start: January 17, 2025 End: January 17, 2025 Dr. Marc Maynard DO Attending Provider Active Start: January 17, 2025 End: January 17, 2025 Dr. Marc Maynard DO Referring Provider Active Start: January 17, 2025 End: January 17, 2025 Team Status: Inactive Member Role/Relationship Status Dates No Primary Care Physician Primary Care Provider Active Start: February 11, 2025 End: February 11, 2025 Dr. Marc Maynard DO Attending Provider Active Start: February 11, 2025 End: February 11, 2025 Dr. Marc Maynard DO Referring Provider Active Start: February 11, 2025 End: February 11, 2025 Team Status: Inactive Member Role/Relationship Status Dates No Primary Care Physician Primary Care Provider Active Start: February 20, 2025 End: February 20, 2025 Dr. Marc Maynard DO Attending Provider Active Start: February 20, 2025 End: February 20, 2025 Dr. Marc Maynard DO Referring Provider Active Start: February 20, 2025 End: February 20, 2025 Team Status: Inactive Member Role/Relationship Status Dates No Primary Care Physician Primary Care Provider Active Start: 2025 End: 2025 No Primary Care Physician Referring Provider Active Start: 2025 End: 2025 Dr. Marc Maynard DO Attending Provider Active Start: 2025 End: 2025 Team Status: Inactive Member Role/Relationship Status Dates No Primary Care Physician Primary Care Provider Active Start: April 10, 2025 End: April 10, 2025 Dr. Anya Estrada DO Attending Provider Active Start: April 10, 2025 End: April 10, 2025 Dr. Anya Estrada DO Emergency Provider Active Start: April 10, 2025 End: April 10, 2025 Team Status: Inactive Member Role/Relationship Status Dates No Primary Care Physician Primary Care Provider Active Start: April 21, 2025 End: April 21, 2025 Dr. Dmitry Nunn MD Attending Provider Active Start: April 21, 2025 End: April 21, 2025 Dr. Marc Maynard DO Referring Provider Active Start: April 21, 2025 End: April 21, 2025 Team Status: Inactive Member Role/Relationship Status Dates No Primary Care Physician Primary Care Provider Active Start: April 30, 2025 End: April 30, 2025 Dr. Dmitry Nunn MD Attending Provider Active Start: April 30, 2025 End: April 30, 2025 Dr. Dmitry Nunn MD Referring Provider Active Start: April 30, 2025 End: April 30, 2025 Team Status: Active Member Role/Relationship Status Dates No Primary Care Physician Primary Care Provider Active Start: April 30, 2025 Dr. Dmitry Nunn MD Attending Provider Active Start: April 30, 2025 Dr. Dmitry Nunn MD Referring Provider Active Start: April 30, 2025 Dr. Dmitry Nunn MD Other Provider Active St art: April 30, 2025 Goals (unrecognized section and content) Goals may be documented in a n alternate sectionGoals may be documented in an alternate sectionGoals may be documented in an alternate sectionGoals may be documented in an alternate sectionGoals may be documented in an alternate sectionGoals may be documented in an alternate sectionGoals may be documented in an alternate sectionGoals may be documented in an alternate sectionGoals may be documented in an alternate sectionGoals may be documented in an alternate sectionGoals may be documented in an alternate sectionGoals may be documented in an alternate section INFORMATION SOURCE (unrecogn ized section and content) DATE CREATED AUTHOR 12/17/2024 [facility] DATE CREATED AUTHOR 'S MAI VILLASEÑOR 04/25/2025 [facility] FOR RECORDS PERTAINING TO PATIENTS WHO ARE OR HAVE BEEN ENROLLED IN A CHEMICAL DEPENDENCY/SUBSTANCEABUSE PROGRAM, SOME INFORMATION MAY BE OMITTED. This clinical summary was aggregated from multiple sources. Caution should be exercised in using it in the provision of clinical care. This summary normalizes information from multiple sources, and as a consequence, information in this document may materially change the coding, format and clinical context of patient data. In addition, data may be omitted in some cases. CLINICAL DECISIONS SHOULD BE BASED ON THE PRIMARY CLINICAL RECORDS. [facility] [employer] [facility]. provides no warranty or guarantee of the accuracy or completeness of information in this document.
== END 2025-04-30 17:10 | disposition home or self-care (01) ==
LOC: SDC 10:13 → AC 10:15
PROVIDERS: Anesthesiology; Referring Provider Surgery; Visit Provider Surgery
PROC: (CPT 47610; principal; 2025-04-30 11:40)
DX: K92.9 Disease of digestive system, unspecified (principal); F17.290 Nicotine dependence, other tobacco product, uncomplicated
CPT/HCPCS: 47562; 00790; 81025; 88304; 93005; C1769; J2405

== ENCOUNTER → 2025-08-25 | Outpatient (CLI) | payer MEDICAID, SELFPAY ==
[2025-08-25 12:35] LABS: Hematocrit 40.7 % (37-47); Hemoglobin 13.1 g/dL (12.0-15.0); Immature Granulocytes Count 0.010 X10^3/uL (0.0-0.0); Mean Corp Hgb Conc 32.2 g/dL (32-36); Mean Corpuscular Volume 90.2 fL (81-99); Mean Platelet Vol. 11.8 fl (6.2-12.0); NRBC Flagged by Analyzer 0 % (0-5); Platelet Count 238 K/mm3 (150-450); RBC Distribution Width CV 11.9 % (11.6-14.6); RBC Distribution Width SD 39.6 fl (35.1-43.9); Red Blood Count 4.51 M/mm3 (4.2-5.4); White Blood Count 5.9 K/mm3 (4.4-11.0)
[2025-08-25 13:18] LABS: Follicle Stimulating Hormone 5.1 mIU/mL; Vitamin D,25 Hydroxy 19.9 ng/mL (30-100)
== END | disposition home or self-care (01) ==
PROVIDERS: Visit Provider Nurse Practitioner Women's Health
DX: R23.2 Flushing (principal); Z13.29 Encounter for screening for other suspected endocrine disorder
CPT/HCPCS: 36415; 82306; 82670; 83001; 84439; 84443; 85025; 86376